=== PATIENT | female | born 1930 | race Caucasian/White ===

== ENCOUNTER 2016-08-21 17:25 | Emergency (ER) | payer OTHER ==
[~2016-08-21] VITALS: Ht 170.2 cm; Wt 90.0 kg
[~2016-08-21 17:25] MED LIST: ALLO100T PO; AMIT1TAB79 PO; APIX5TAB PO; ATOR10TA15 PO; CARD240C6 PO; FURO1TAB60 PO; IPRA17I INH; ISOS30TA3 PO; LEVO25TA4 PO; METO-338 PO; MIRA33504 PO; NOVO7030P2 SQ; OMEP20TA PO
[2016-08-21 17:29] VITALS: BP 136/64; PULSE 130; RESP 24; TEMP 98.1; O2SAT 96
== END 2016-08-21 19:24 | disposition left against medical advice (07) ==
LOC: NED 17:25
DX: R11.2 Nausea with vomiting, unspecified (principal)
CPT/HCPCS: 99281

== ENCOUNTER 2016-09-12 16:17 | Emergency (ER) | payer OTHER ==
[~2016-09-12] VITALS: Ht 170.2 cm; Wt 81.0 kg
[2016-09-12 16:23] VITALS: BP 135/60; PULSE 90; RESP 16; TEMP 98.1; O2SAT 98
--- NOTE | 2016-09-12 17:09 | PD ---
HPI Chief Complaint: Skin Problem Time Seen by Provider: 16:55 Travel History International Travel<30 days: No Contact w/Intl Traveler<30days: No Traveled to known affect area: No History of Present Illness HPI 86yo F with PMH of DM presents to the ED for evaluation of her left foot per her granddaughter's request. Pt has dry superficial ulcer as well as an area of early blister formation medial of left big toe. She has mild erythema on dorsum of her foot that she cannot tell me the duration of time it has been there. Denies any fever, trauma, numbness, weakness. Pain is mild and pt can ambulate. Denies any chest pain, sob, n/v, abdominal pain. PFSH Past Medical History Hx Anticoagulant Therapy: Yes (81 MG. ASA) Arthritis: Yes (L KNEE) Asthma: No Atrial Fibrillation: Yes Autoimmune Disease: No Blood Disorders: No Anxiety: No Depression: No Heart Rhythm Problems: Yes (AFIB) Cancer: No Cardiac Catheterization: Yes (X 4 STENTS) Cardiovascular Problems: Yes (HTN, CHOL) High Cholesterol: Yes Chemotherapy: No Chest Pain: Yes Congestive Heart Failure: Yes COPD: Yes Cerebrovascular Accident: No Coronary Artery Disease: Yes (NOT SURE) Diabetes: Yes Diminished Hearing: Yes ([place] EAR) Endocrine: Yes Gastrointestinal Disorders: Yes (IBS) GERD: No Glaucoma: No Genitourinary: No Headaches: Yes (WHEN BLOOD SUGAR GETS HIGH) Hepatitis: No Hiatal Hernia: Yes Hypertension: Yes Immune Disorder: No Inguinal Hernia: No Implanted Vascular Access Dvce: Yes Kidney Stones: No Musculoskeletal: Yes Neurologic: No Psychiatric: No Reproductive: No Respiratory: Yes Integumentary: Yes Immunizations Current: Yes Migraines: No Myocardial Infarction: No Pneumonia: Yes Radiation Therapy: No Renal Failure: No Seizures: No Sickle Cell Disease: No Sleep Apnea: No Thyroid Disease: No Ulcer: No PNEUMOCCOCAL Vaccine (Year): 1 Menopausal: Yes : 4 Para: 4 Past Surgical History Abdominal Surgery: Yes (SM BOWEL RESECTION) AICD: No Appendectomy: No Arteriovenous Shunt: No Body Medical Devices: STENTS x 4 cardiac Cardiac Surgery: Yes Cholecystectomy: Yes Coronary Artery Bypass Graft: No Coronary Stent: Yes (2005 & 2006) Ear Surgery: No Endocrine Surgery: No Eye Surgery: Yes (CATARACTS R EYE) Genitourinary Surgery: No Gynecologic Surgery: Yes Hysterectomy: Yes Insulin Pump: No Joint Replacement: No Neurologic Surgery: No Oral Surgery: Yes (DENTURES) Pacemaker: No Thoracic Surgery: No Other Surgery: Yes (GALLSTONES; R LEG AMPUTATED) Social History Alcohol Use: No Tobacco Use: No Substance Use: No Allergies-Medications (Allergen,Severity, Reaction): Coded Allergies: Digoxin (Verified Allergy, Severe, BLURRY VISION, 09/12/16) Oxycodone (Verified Allergy, Severe, Anaphylaxis, 09/12/16) Ativan (Verified Adverse Reaction, Severe, "makes me crazy", 09/12/16) Codeine (Verified Adverse Reaction, Severe, "makes me crazy", 09/12/16) Reported Meds & Prescriptions Reported Meds & Active Scripts Active Lopressor (Metoprolol Tartrate) 100 Mg Tab 100 Mg PO BID Lasix (Furosemide) 40 Mg Tab 40 Mg PO DAILY Cardizem CD 24 HR (Diltiazem CD 24 HR) 240 Mg Caper 240 Mg PO DAILY Novolin 70-30 Inj (Insulin Human Isoph/Insulin Regular) 1,000 Unit/10 Ml Vial 15 Units SQ BID@,17 30 Days Reported Allopurinol 100 Mg Tab 100 Mg PO DAILY Atorvastatin (Atorvastatin Calcium) 10 Mg Tab 10 Mg PO HS Atrovent HFA 12.9 GM Inh (Ipratropium [place]) 17 Mcg/Act Aer 1 Puff INH DIRECTED PRN Elavil (Amitriptyline HCl) 25 Mg Tab 75 Mg PO HS Isosorbide Mononitrate ER (Isosorbide Mononitrate) 30 Mg Alejandro 30 Mg PO DAILY Miralax Powder (Polyethylene Glycol 3350 Powder) 17 Gm Powd 17 Gm PO DAILY Mix and dissolve one measuring cap-ful (17 grams) in water or juice. Review of Systems Except as stated in HPI: all other systems reviewed are Neg Physical Exam Narrative GENERAL: 86yo F not in distress. SKIN: Warm and dry. HEAD: Atraumatic. Normocephalic. CARDIOVASCULAR: Regular rate and rhythm. No murmur appreciated. RESPIRATORY: No accessory muscle use. Clear to auscultation. Breath sounds equal bilaterally. GASTROINTESTINAL: Abdomen soft, non-tender, nondistended. Hepatic and splenic margins not palpable. MUSCULOSKELETAL: Left foot: Small dry superficial ulcer top of first big toe with +irritated skin, loose skin medial to left big toe from rubbing against the second toe. It is not open yet. Mild erythema on dorsum of distal MTPs 1- 5. DP 1+. +Edema. No ttp. Right leg: Prosthetic leg. NEUROLOGICAL: Awake and alert. No obvious cranial nerve deficits. Motor grossly within normal limits. Normal speech. PSYCHIATRIC: Appropriate mood and affect; insight and judgment normal.87 Data Data Last Documented VS Vital Signs Date Time Temp Pulse Resp B/P Pulse Ox O2 Delivery O2 Flow Rate FiO2 09/12/16 16:23 98.1 90 16 135/60 98 Orders Foot, Limited (2vws) (09/12/16 ) Complete Blood Count With Diff (09/12/16 17:04) Basic Metabolic Panel (Bmp) (09/12/16 17:04) Labs Laboratory Tests Test 09/12/16 17:20 White Blood Count 6.9 TH/MM3 Red Blood Count 3.92 MIL/MM3 Hemoglobin 9.3 GM/DL Hematocrit 30.5 % Mean Corpuscular Volume 77.7 FL Mean Corpuscular Hemoglobin 23.7 PG Mean Corpuscular Hemoglobin 30.5 % Concent Red Cell Distribution Width 17.3 % Platelet Count 262 TH/MM3 Mean Platelet Volume 8.1 FL Neutrophils (%) (Auto) 70.1 % Lymphocytes (%) (Auto) 19.0 % Monocytes (%) (Auto) 9.0 % Eosinophils (%) (Auto) 1.4 % Basophils (%) (Auto) 0.5 % Neutrophils # (Auto) 4.9 TH/MM3 Lymphocytes # (Auto) 1.3 TH/MM3 Monocytes # (Auto) 0.6 TH/MM3 Eosinophils # (Auto) 0.1 TH/MM3 Basophils # (Auto) 0.0 TH/MM3 CBC Comment DIFF FINAL Differential Comment Sodium Level 137 MEQ/L Potassium Level 4.3 MEQ/L Chloride Level 102 MEQ/L Carbon Dioxide Level 26.4 MEQ/L Anion Gap 9 MEQ/L Blood Urea Nitrogen 22 MG/DL Creatinine 1.10 MG/DL Estimat Glomerular Filtration 47 ML/MIN Rate Random Glucose 291 MG/DL Calcium Level 9.4 MG/DL MDM Medical Decision Making Medical Screen Exam Complete: Yes Emergency Medical Condition: Yes Interpretation(s) Laboratory Tests Test 09/12/16 17:20 White Blood Count 6.9 TH/MM3 (4.0-11.0) Red Blood Count 3.92 MIL/MM3 (4.00-5.30) Hemoglobin 9.3 GM/DL (11.6-15.3) Hematocrit 30.5 % (35.0-46.0) Mean Corpuscular Volume 77.7 FL (80.0-100.0) Mean Corpuscular Hemoglobin 23.7 PG (27.0-34.0) Mean Corpuscular Hemoglobin 30.5 % Concent (32.0-36.0) Red Cell Distribution Width 17.3 % (11.6-17.2) Platelet Count 262 TH/MM3 (150-450) Mean Platelet Volume 8.1 FL (7.0-11.0) Neutrophils (%) (Auto) 70.1 % (16.0-70.0) Lymphocytes (%) (Auto) 19.0 % (9.0-44.0) Monocytes (%) (Auto) 9.0 % (0.0-8.0) Eosinophils (%) (Auto) 1.4 % (0.0-4.0) Basophils (%) (Auto) 0.5 % (0.0-2.0) Neutrophils # (Auto) 4.9 TH/MM3 (1.8-7.7) Lymphocytes # (Auto) 1.3 TH/MM3 (1.0-4.8) Monocytes # (Auto) 0.6 TH/MM3 (0-0.9) Eosinophils # (Auto) 0.1 TH/MM3 (0-0.4) Basophils # (Auto) 0.0 TH/MM3 (0-0.2) CBC Comment DIFF FINAL Differential Comment Sodium Level 137 MEQ/L (136-145) Potassium Level 4.3 MEQ/L (3.5-5.1) Chloride Level 102 MEQ/L (98-107) Carbon Dioxide Level 26.4 MEQ/L (21.0-32.0) Anion Gap 9 MEQ/L (5-15) Blood Urea Nitrogen 22 MG/DL (7-18) Creatinine 1.10 MG/DL (0.50-1.00) Estimat Glomerular Filtration 47 ML/MIN (>89) Rate Random Glucose 291 MG/DL (74-106) Calcium Level 9.4 MG/DL (8.5-10.1) Last Impressions Foot X-Ray 09/12/16 0000 Signed Impressions: Service Date/Time: August 17:18 - CONCLUSION: 1. Degenerative changes and bunion deformity. No findings to indicate osteomyelitis evident by plain film. Manan Khanna MD Differential Diagnosis Cellulitis vs. Skin irritation vs. neuropathy Narrative Course 86yo F with chronic left foot ulcers and mild erythema on dorsum of foot. Pt is nontoxic appearing. VS stable. Xray left foot showed degenerative changes and bunion deformity. No findings to indicate osteomyelitis. Pt is not really complaining of any pain but is here because her grand daughter brought her. Labs reviewed, no leukocytosis. H/H low but at baseline. Denies any bleeding. glucose elevated at 291. No anion gap. BUN/creatinine mildly elevated, pt is tolerating PO and can hydrate orally. Diagnosis Primary Impression: Cellulitis of left foot Referrals: Landen Nunez DPM 1 week Patient Instructions: General Instructions Departure Forms: Tests/Procedures Additional Instructions: Please follow up with your PMD in 3-7 days. Return to the ED if your symptoms worsen. Med/Other Pt SpecificInfo: Prescription(s) given Scripts Clindamycin 300 Mg [id number] Mg PO Q6H 7 Days Ref 0 Prov:Alison Bedolla DO 09/12/16 Disposition: 01 DISCHARGE HOME Condition: Stable Alison Bedolla DO Sep 12, 2016 17:09
--- NOTE | 2016-09-12 17:36 | RADHPO ---
EXAM DATE/TIME: 09/12/2016 17:18 [facility] COMPARISON: CHEST SINGLE AP, June 30, 2016, 21:33. INDICATIONS : Patient states left great toe wound. MEDICAL HISTORY : Diabetes mellitus type II. SURGICAL HISTORY : None. ENCOUNTER: Initial ACUITY: 1 week PAIN SCORE: 2/10 LOCATION: Left Foot FINDINGS: The exam demonstrates degenerative changes and bunion deformity in the metatarsal phalangeal joint of the first digit. There is no bony destruction to suggest osteomyelitis. No acute fracture is seen. There are large spurs at the insertion of the plantar fascia and Achilles tendon. CONCLUSION: 1. Degenerative changes and bunion deformity. No findings to indicate osteomyelitis evident by plain film. Manan Khanna MD on September 12, 2016 at 17:33 Board Certified Radiologist. This report was verified electronically.
[2016-09-12 17:50] LABS: POTASSIUM 4.3 MEQ/L (3.5-5.1)
[2016-09-12 17:53] LABS: BICARBONATE 26.4 MEQ/L (21.0-32.0)
[2016-09-12 18:04] LABS: AUTOMATED NEUTROPHIL # 4.9 TH/MM3 (1.8-7.7); BASOPHIL % 0.5 % (0.0-2.0); EOSINOPHIL # 0.1 TH/MM3 (0-0.4); EOSINOPHIL % 1.4 % (0.0-4.0); HEMATOCRIT 30.5 % (35.0-46.0); LYMPHOCYTE # 1.3 TH/MM3 (1.0-4.8); MEAN CELL VOLUME 77.7 FL (80.0-100.0); MEAN CORPUSCULAR HEMOGLOBIN 23.7 PG (27.0-34.0); MEAN CORPUSCULAR HGB CONC 30.5 % (32.0-36.0); NEUT % 70.1 % (16.0-70.0); PLATELET COUNT 262 TH/MM3 (150-450); RED BLOOD COUNT 3.92 MIL/MM3 (4.00-5.30); RED CELL DISTRIBUTION WIDTH 17.3 % (11.6-17.2); WHITE BLOOD COUNT 6.9 TH/MM3 (4.0-11.0)
[2016-09-12 18:27] LABS: HEMO FLAGS DIFF FINAL
[2016-09-12] MEDS ORDERED: CLIN1CAP6 PO (18:41)
== END 2016-09-12 19:34 | disposition home or self-care (01) ==
LOC: PHED 16:17
DX: L03.116 Cellulitis of left lower limb (principal); I48.91 Unspecified atrial fibrillation; M13.862 Other specified arthritis, left knee; I10 Essential (primary) hypertension; E11.9 Type 2 diabetes mellitus without complications; J44.9 Chronic obstructive pulmonary disease, unspecified; E78.00 Pure hypercholesterolemia, unspecified; I50.9 Heart failure, unspecified; Z79.4 Long term (current) use of insulin; Z79.82 Long term (current) use of aspirin
CPT/HCPCS: 73620; 80048; 85025; 99283

== ENCOUNTER 2016-09-19 16:10 | Inpatient (IN) | payer OTHER, MEDICARE ==
[~2016-09-19] VITALS: Ht 170.2 cm; Wt 73.9 kg
[~2016-09-19 16:10] MED LIST changes: -APIX5TAB PO; +CLIN1CAP6 PO; -LEVO25TA4 PO; -OMEP20TA PO
[2016-09-19 16:30] VITALS: BP 152/72; PULSE 124; RESP 19; O2SAT 100
[2016-09-19 16:33] LABS: MEAN CORPUSCULAR HGB CONC 29.9 % (32.0-36.0)
[2016-09-19 16:40] VITALS: O2SAT 100
--- NOTE | 2016-09-19 16:41 | PD ---
HPI Chief Complaint: shortness of breath Time Seen by Provider: 16:32 Travel History International Travel<30 days: No Contact w/Intl Traveler<30days: No Traveled to known affect area: No History of Present Illness HPI 86-year-old female with history of COPD, CHF, diabetes, status post right BKA multiple medical issues presents to the ER today because of several days of shortness of breath and coughing. She denies any chest pains, fevers, or other symptoms. She was found to be wheezing and was given Solu-Medrol and nebulizer by EMS. She reports feeling improved in the ER. EMS found elevated blood sugar of 400. Modifying Factors: None Associated Signs & Symptoms: Shortness of breath, coughing, hyperglycemia Risk Factors: COPD PFSH Past Medical History Hx Anticoagulant Therapy: Yes (81 MG. ASA) Arthritis: Yes (L KNEE) Asthma: No Atrial Fibrillation: Yes Autoimmune Disease: No Blood Disorders: No Anxiety: No Depression: No Heart Rhythm Problems: Yes (AFIB) Cancer: No Cardiac Catheterization: Yes (X 4 STENTS) Cardiovascular Problems: Yes (HTN, CHOL) High Cholesterol: Yes Chemotherapy: No Chest Pain: Yes Congestive Heart Failure: Yes COPD: Yes Cerebrovascular Accident: No Coronary Artery Disease: Yes (NOT SURE) Diabetes: Yes Diminished Hearing: Yes ([place] EAR) Endocrine: Yes Gastrointestinal Disorders: Yes (IBS) GERD: No Glaucoma: No Genitourinary: No Headaches: Yes (WHEN BLOOD SUGAR GETS HIGH) Hepatitis: No Hiatal Hernia: Yes Heparin Induced Thrombocytopen: No Hypertension: Yes Immune Disorder: No Inguinal Hernia: No Implanted Vascular Access Dvce: Yes Kidney Stones: No Musculoskeletal: Yes Neurologic: No Psychiatric: No Reproductive: No Respiratory: Yes Integumentary: Yes Immunizations Current: Yes Migraines: No Myocardial Infarction: No Pneumonia: Yes Radiation Therapy: No Renal Failure: No Seizures: No Sickle Cell Disease: No Sleep Apnea: No Thyroid Disease: No Ulcer: No PNEUMOCCOCAL Vaccine (Year): 1 Menopausal: Yes : 4 Para: 4 Past Surgical History Abdominal Surgery: Yes (SM BOWEL RESECTION) AICD: No Appendectomy: No Arteriovenous Shunt: No Body Medical Devices: STENTS x 4 cardiac Cardiac Surgery: Yes Cholecystectomy: Yes Coronary Artery Bypass Graft: No Coronary Stent: Yes (2005 & 2006) Ear Surgery: No Endocrine Surgery: No Eye Surgery: Yes (CATARACTS R EYE) Genitourinary Surgery: No Gynecologic Surgery: Yes Hysterectomy: Yes Insulin Pump: No Joint Replacement: No Neurologic Surgery: No Oral Surgery: Yes (DENTURES) Pacemaker: No Thoracic Surgery: No Other Surgery: Yes (GALLSTONES; R LEG AMPUTATED) Social History Alcohol Use: No Tobacco Use: No Substance Use: No Allergies-Medications (Allergen,Severity, Reaction): Coded Allergies: Digoxin (Verified Allergy, Severe, BLURRY VISION, 09/19/16) Oxycodone (Verified Allergy, Severe, Anaphylaxis, 09/19/16) Ativan (Verified Adverse Reaction, Severe, "makes me crazy", 09/19/16) Codeine (Verified Adverse Reaction, Severe, "makes me crazy", 09/19/16) Reported Meds & Prescriptions Reported Meds & Active Scripts Active Lopressor (Metoprolol Tartrate) 100 Mg Tab 100 Mg PO BID Lasix (Furosemide) 40 Mg Tab 40 Mg PO DAILY Cardizem CD 24 HR (Diltiazem CD 24 HR) 240 Mg Caper 240 Mg PO DAILY Novolin 70-30 Inj (Insulin Human Isoph/Insulin Regular) 1,000 Unit/10 Ml Vial 15 Units SQ BID@,17 30 Days Reported Aspirin 81 Mg Tabdr 81 Mg PO DAILY Allopurinol 100 Mg Tab 100 Mg PO DAILY Atorvastatin (Atorvastatin Calcium) 10 Mg Tab 10 Mg PO HS Atrovent HFA 12.9 GM Inh (Ipratropium [place]) 17 Mcg/Act Aer 1 Puff INH DIRECTED PRN Elavil (Amitriptyline HCl) 25 Mg Tab 75 Mg PO HS Isosorbide Mononitrate ER (Isosorbide Mononitrate) 30 Mg Alejandro 30 Mg PO DAILY Miralax Powder (Polyethylene Glycol 3350 Powder) 17 Gm Powd 17 Gm PO DAILY Mix and dissolve one measuring cap-ful (17 grams) in water or juice. Review of Systems Except as stated in HPI: all other systems reviewed are Neg Physical Exam Narrative GENERAL: Well-nourished, well-developed elderly white female patient in no acute distress. Awake and oriented 3. SKIN: Warm and dry. HEAD: Normocephalic. EYES: No scleral icterus. No injection or drainage. NECK: Supple, trachea midline. CARDIOVASCULAR: Regular rate and rhythm without murmurs, gallops, or rubs. RESPIRATORY: Breath sounds equal and decreased throughout bilaterally. No accessory muscle use. GASTROINTESTINAL: Abdomen soft, non-tender, nondistended. MUSCULOSKELETAL: No cyanosis, or edema. BACK: Nontender without obvious deformity. No CVA tenderness. Data Data Last Documented VS Vital Signs Date Time Temp Pulse Resp B/P Pulse Ox O2 Delivery O2 Flow Rate FiO2 09/19/16 16:45 102 20 100 Room Air 09/19/16 16:40 21 09/19/16 16:30 152/72 Orders Complete Blood Count With Diff (09/19/16 16:32) Comprehensive Metabolic Panel (09/19/16 16:32) B-Type Natriuretic Peptide (09/19/16 16:32) Iv Access Insert/Monitor (09/19/16 16:32) Ecg Monitoring (09/19/16 16:32) Oximetry (09/19/16 16:32) Oxygen Administration (09/19/16 16:32) Chest, Single Ap (09/19/16 16:32) Sodium Chloride 0.9% Flush (Ns Flush) (09/19/16 16:45) Albuterol-Ipratropium Neb (Duoneb Neb) (09/19/16 16:45) Arterial Blood Gas (Abg) (09/19/16 17:41) Consult Vascular Access Team (09/19/16 ) Labs Laboratory Tests Test 09/19/16 18:37 White Blood Count 17.9 TH/MM3 Red Blood Count 4.16 MIL/MM3 Hemoglobin 9.7 GM/DL Hematocrit 32.6 % Mean Corpuscular Volume 78.4 FL Mean Corpuscular Hemoglobin 23.4 PG Mean Corpuscular Hemoglobin 29.9 % Concent Red Cell Distribution Width 17.0 % Platelet Count 286 TH/MM3 Mean Platelet Volume 8.5 FL Neutrophils (%) (Auto) 97.0 % Lymphocytes (%) (Auto) 1.2 % Monocytes (%) (Auto) 1.7 % Eosinophils (%) (Auto) 0.0 % Basophils (%) (Auto) 0.1 % Neutrophils # (Auto) 17.3 TH/MM3 Lymphocytes # (Auto) 0.2 TH/MM3 Monocytes # (Auto) 0.3 TH/MM3 Eosinophils # (Auto) 0.0 TH/MM3 Basophils # (Auto) 0.0 TH/MM3 CBC Comment AUTO DIFF MDM Medical Decision Making Medical Screen Exam Complete: Yes Emergency Medical Condition: Yes Medical Record Reviewed: Yes Interpretation(s) Last 24 hours Impressions Chest X-Ray 09/19/16 1632 Signed Impressions: Service Date/Time: September 17:14 - CONCLUSION: No acute cardiopulmonary disease identified. Hema Braxton MD Differential Diagnosis Shortness of breathCOPD exacerbation versus CHF versus pneumonia Narrative Course Patient was given Solu-Medrol and nebulizers by EMS and in the ER. On reevaluation at 6:30 PM, she is feeling improved. I suspect that she has an underlying COPD exacerbation. Lab work had been sent on the patient and is pending. Procedures Procedure Narrative Right external jugular vein IV was placed by me. Patient was placed in Trendelenburg position, right EJ was identified, and alcohol prep was used to clean the area. 20-gauge IV needle was used to access the vein and 20-gauge IV placed over needle. Patient tolerated procedure well. IV is stable into place. Physician Communication Physician Communication Patient signed out to Dr. Cantu awaiting lab work. Diagnosis Primary Impression: COPD exacerbation Additional Impression: Hyperglycemia Condition: Stable John Lange MD Sep 19, 2016 16:41
[2016-09-19] MEDS: RESP: ALBUTEROL 2.5 MG/IPRATROPIUM 0.5 MG NEB (SCH) INH (16:42)
[2016-09-19 16:45] VITALS: O2SAT 100
[2016-09-19] MEDS ORDERED: SODIUM CHLORIDE 0.9% FLUSH 5 ML FLUSH IVF PRN (16:45)
--- NOTE | 2016-09-19 18:01 | RADRPT ---
EXAM DATE/TIME: 09/19/2016 17:14 [facility] COMPARISON: CHEST SINGLE AP, June 30, 2016, 21:33. INDICATIONS : Short of Breath, Chest Discomfort. MEDICAL HISTORY : Chronic obstructive pulmonary disease. Diabetes mellitus type II. Hypertension. Hernia, hiatal. CHF. SURGICAL HISTORY : Cardiac stents. ENCOUNTER: Initial ACUITY: 4 - 6 months PAIN SCORE: 2/10 LOCATION: Bilateral chest FINDINGS: Single AP view of the chest. Chronic elevation right hemidiaphragm. The lungs are clear. Cardiomedias tinal silhouette within normal limits. No evidence of pleural effusion or pneumothorax. CONCLUSION: No acute cardiopulmonary disease identified. Hema Braxton MD on September 19, 2016 at 17:59 Board Certified Radiologist. This report was verified electronically.
[2016-09-19] MEDS ORDERED: ASPI1TAB69 PO (18:09)
[2016-09-19 18:55] LABS: AUTOMATED NEUTROPHIL # 17.3 TH/MM3 (1.8-7.7); BASOPHIL % 0.1 % (0.0-2.0); HEMATOCRIT 32.6 % (35.0-46.0); LYMPH % 1.2 % (9.0-44.0); LYMPHOCYTE # 0.2 TH/MM3 (1.0-4.8); MEAN CELL VOLUME 78.4 FL (80.0-100.0); MEAN CORPUSCULAR HEMOGLOBIN 23.4 PG (27.0-34.0); MONO % 1.7 % (0.0-8.0); PLATELET COUNT 286 TH/MM3 (150-450); RED BLOOD COUNT 4.16 MIL/MM3 (4.00-5.30); WHITE BLOOD COUNT 17.9 TH/MM3 (4.0-11.0)
[2016-09-19 18:56] LABS: HEMO FLAGS AUTO DIFF
[2016-09-19] MEDS ORDERED: ACETAMINOPHEN 500 MG CPLT PO ONE (19:00)
[2016-09-19 19:09] LABS: ALKALINE PHOSPHATASE 102 U/L (45-117); ALT (GPT) 15 U/L (10-53); ANION GAP 15 MEQ/L (5-15); AST (GOT) 21 U/L (15-37); BICARBONATE 23.3 MEQ/L (21.0-32.0); BLOOD UREA NITROGEN 38 MG/DL (7-18); CHLORIDE 94 MEQ/L (98-107); GLOMERULAR FILTRATION RATE 27 ML/MIN (>89); POTASSIUM 3.2 MEQ/L (3.5-5.1); SODIUM (NA) 132 MEQ/L (136-145); TOTAL BILIRUBIN ADULT 0.6 MG/DL (0.2-1.0)
[2016-09-19 19:37] LABS: OVALOCYTES 1+ (NORMAL); SCAN/DIFF AUTO DIFF CONFIRMED
[2016-09-19 21:30] VITALS: BP 127/91; PULSE 136; RESP 18; TEMP 98.7
[2016-09-19] MEDS ORDERED: INSULIN HUMAN REGULAR 1,000 UNITS/10 ML VIAL SQ ONE (21:30)
[2016-09-19] MEDS ORDERED: SODIUM CHLOR 0.9% 1000 ML INJ 1,000 ML IV ONE ×2 (21:30)
[2016-09-19] MEDS ORDERED: POTASSIUM CHLOR 20 MEQ PREMIX 100 ML IV ONE (21:45)
[2016-09-19] MEDS ORDERED: POTASSIUM CHLORIDE 25 MEQ EFFERVESCENT TAB PO ONE (21:45)
[2016-09-19 21:52] LABS: BLOOD GAS BASE EXCESS -4.5 mmol/L (-2-2); BLOOD GAS CARBOXYHEMOGLOBIN 2.1 % (0-4); BLOOD GAS HCO3 19 mmol/L (22-26); BLOOD GAS METHEMOGLOBIN 2.4 % (0-2); BLOOD GAS O2 HGB SATURATION 92 % (90-100); BLOOD GAS OXYGEN CONTENT 13.3 Vol % (12.0-20.0); BLOOD GAS PCO2 31 mmHg (38-42); BLOOD GAS PO2 90 mmHG (61-120); BLOOD GAS TOTAL HGB 10.2 G/DL (12.0-16.0); CRITICAL VALUE YES; DRAW SITE RT RADIAL; NUMBER OF ARTERIAL PUNCTURES 1; OXYGEN DEVICE RA; STAT YES; TEMP CORR TO 98.6; ULNAR PULSE Y
[2016-09-19] MEDS ORDERED: MORPHINE SULFATE 4 MG/ML INJ IV PUSH ONE (22:15)
[2016-09-19] MEDS ORDERED: ONDANSETRON HCL 4 MG/2 ML VIAL IV PUSH ONE (22:15)
--- NOTE | 2016-09-19 22:21 | PD ---
Physical Exam Date Seen by Provider: Sep 19, 2016 Time Seen by Provider: 22:17 Narrative Patient was signed over to me by the previous ER physician. This 86-year-old female was brought into the emergency room by EMS for hypoglycemia and some shortness of breath. Patient seems to be a little bit confused for look like to answer as appropriately as possible. Her blood sugar was 450. Blood test was ordered based on her hyperglycemia. Blood test results came back which shows leukocytosis, hypokalemia and hyperglycemia. I went and reexamined the patient to look for any skin lesions that can explain the leukocytosis. Patient has no open sores. 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 She has a dried ulcer of her left second toe dorsally. Does not look infected. I rechecked her back and there were no decubitus ulcer. Test x-ray was within normal limit. Awaiting for the urine analysis. I ordered 2 L of IV fluid bolus and she did appear dehydrated and was tachycardic. I also ordered 10 units of subcutaneous insulin. Initial laboratory did not suggest any acidemia. The ABG did not show any metabolic acidosis. Patient would require admission given her hyper glycemia and dehydration. Awaiting for the hospitalist to call back. I have not given her any antibiotic yet. Probably I will cover her for possible sepsis. Data Data Last Documented VS Vital Signs Date Time Temp Pulse Resp B/P Pulse Ox O2 Delivery O2 Flow Rate FiO2 09/19/16 21:30 98.7 136 18 127/91 09/19/16 16:45 100 Room Air 09/19/16 16:40 21 Orders Complete Blood Count With Diff (09/19/16 16:32) Comprehensive Metabolic Panel (09/19/16 16:32) B-Type Natriuretic Peptide (09/19/16 16:32) Iv Access Insert/Monitor (09/19/16 16:32) Ecg Monitoring (09/19/16 16:32) Oximetry (09/19/16 16:32) Oxygen Administration (09/19/16 16:32) Chest, Single Ap (09/19/16 16:32) Sodium Chloride 0.9% Flush (Ns Flush) (09/19/16 16:45) Albuterol-Ipratropium Neb (Duoneb Neb) (09/19/16 16:45) Consult Vascular Access Team (09/19/16 ) Acetaminophen (Tylenol) (09/19/16 19:00) Sodium Chlor 0.9% 1000 Ml Inj (Ns 1000 M (09/19/16 21:30) Sodium Chlor 0.9% 1000 Ml Inj (Ns 1000 M (09/19/16 21:30) Insulin Human Regular Inj (Novolin R Inj (09/19/16 21:30) Urinalysis - C+S If Indicated (09/19/16 21:21) ^ Straight Catheter (09/19/16 21:21) Potassium Chloride Eff (K-Lyte Cl Eff) (09/19/16 21:45) Arterial Blood Gas (Abg) (09/19/16 ) Potassium Chlor 20 Meq Premix (Kcl 20 Me (09/19/16 21:45) Urinary Catheter Insert/Apply (09/19/16 21:34) Beta Hydroxybutyrate (Acetone) (09/19/16 21:37) Morphine Inj (Morphine Inj) (09/19/16 22:15) Ondansetron Inj (Zofran Inj) (09/19/16 22:15) Creatine Kinase (Cpk) (09/19/16 22:04) Piperacil-Tazo 4.5 Gm Premix (Zosyn 4.5 (09/19/16 22:30) Vancomycin Inj (Vancomycin Inj) (09/19/16 22:30) Lactic Acid (09/19/16 22:22) Cefepime Inj (Maxipime Inj) (09/20/16 09:00) Bedside Glucose HALEY.AC&HS (09/19/16 22:28) ^ Blood Glucose Goal (Criteria (09/19/16 22:28) ^ Hypoglycemia 51 - 69 Mg/Dl (09/19/16 22:28) ^ Hypoglycemia 50 Mg/Dl Or < (09/19/16 22:28) ^ Notify Dr: Other (09/19/16 22:28) Dextrose 50% In [place] (Vial) Inj (D50w (Vi (09/19/16 22:30) Glucagon Inj (Glucagon Inj) (09/19/16 22:30) Insulin Aspart Supplemtl Scale (Novolog (09/20/16 07:00) Hemoglobin (Hgb) A1c (09/20/16 06:00) Vital Signs (Adult) Q4H (09/19/16 22:28) Activity Oob With Assistance (09/19/16 22:28) Box Person / Telemetry .CONTINUOUS (09/19/16 22:28) Intake + Output HALEY.QSHIFT (09/19/16 22:28) Diet 1800 Ada Cons Carb (09/20/16 Breakfast) Sodium Chlor 0.9% 1000 Ml Inj (Ns 1000 M (09/19/16 22:28) Sodium Chloride 0.9% Flush (Ns Flush) (09/19/16 22:30) Sodium Chloride 0.9% Flush (Ns Flush) (09/20/16 09:00) Ondansetron Inj (Zofran Inj) (09/19/16 22:30) Bisacodyl Supp (Dulcolax Supp) (09/19/16 22:30) Comprehensive Metabolic Panel (09/20/16 06:00) Complete Blood Count With Diff (09/20/16 06:00) Scd Bilateral/Knee High HALEY.BID (09/19/16 22:28) Cristian Bilateral/Knee High HALEY.QSHIFT (09/19/16 22:28) Acetaminophen (Tylenol) (09/19/16 22:30) Inpatient Certification (09/19/16 ) Diltiazem Cd (Cardizem Cd) (09/20/16 09:00) Urine Culture (09/19/16 21:54) Admit Order (Ed Use Only) (09/19/16 22:34) Labs Laboratory Tests Test 09/19/16 09/19/16 09/19/16 18:37 21:45 21:54 White Blood Count 17.9 TH/MM3 Red Blood Count 4.16 MIL/MM3 Hemoglobin 9.7 GM/DL Hematocrit 32.6 % Mean Corpuscular Volume 78.4 FL Mean Corpuscular Hemoglobin 23.4 PG Mean Corpuscular Hemoglobin 29.9 % Concent Red Cell Distribution Width 17.0 % Platelet Count 286 TH/MM3 Mean Platelet Volume 8.5 FL Neutrophils (%) (Auto) 97.0 % Lymphocytes (%) (Auto) 1.2 % Monocytes (%) (Auto) 1.7 % Eosinophils (%) (Auto) 0.0 % Basophils (%) (Auto) 0.1 % Neutrophils # (Auto) 17.3 TH/MM3 Lymphocytes # (Auto) 0.2 TH/MM3 Monocytes # (Auto) 0.3 TH/MM3 Eosinophils # (Auto) 0.0 TH/MM3 Basophils # (Auto) 0.0 TH/MM3 CBC Comment AUTO DIFF Differential Comment AUTO DIFF CONFIRMED Ovalocytes 1+ Sodium Level 132 MEQ/L Potassium Level 3.2 MEQ/L Chloride Level 94 MEQ/L Carbon Dioxide Level 23.3 MEQ/L Anion Gap 15 MEQ/L Blood Urea Nitrogen 38 MG/DL Creatinine 1.80 MG/DL Estimat Glomerular Filtration 27 ML/MIN Rate Random Glucose 438 MG/DL Calcium Level 8.5 MG/DL Total Bilirubin 0.6 MG/DL Aspartate Amino Transf 21 U/L (AST/SGOT) Alanine Aminotransferase 15 U/L (ALT/SGPT) Alkaline Phosphatase 102 U/L Total Creatine Kinase 44 U/L B-Type Natriuretic Peptide 129 PG/ML Total Protein 7.1 GM/DL Albumin 3.1 GM/DL B-Hydroxybutyrate 2.15 MMOL/L Blood Gas Puncture Site RT RADIAL Blood Gas Patient Temperature 98.6 Blood Gas HCO3 19 mmol/L Blood Gas Base Excess -4.5 mmol/L Blood Gas Oxygen Saturation 92 % Arterial Blood pH 7.41 Arterial Blood Partial 31 mmHg Pressure CO2 Arterial Blood Partial 90 mmHG Pressure O2 Arterial Blood Oxygen Content 13.3 Vol % Arterial Blood 2.1 % Carboxyhemoglobin Arterial Blood Methemoglobin 2.4 % Blood Gas Hemoglobin 10.2 G/DL Oxygen Delivery Device RA Urine Color YELLOW Urine Turbidity HAZY Urine pH 5.0 Urine Specific [place] 1.014 Urine Protein NEG mg/dL Urine Glucose (UA) 1000 mg/dL Urine Ketones TRACE mg/dL Urine Occult Blood NEG Urine Nitrite NEG Urine Bilirubin NEG Urine Urobilinogen LESS THAN 2.0 MG/DL Urine Leukocyte Esterase SMALL Urine WBC 4 /hpf Urine Squamous Epithelial <1 /hpf Cells Urine Bacteria MANY /hpf Urine Hyaline Casts 1 /lpf Urine Mucus FEW /lpf Microscopic Urinalysis Comment CATH-CULTURE IND MDM Supervised Visit with DYLAN: No Critical Care Narrative Aggregate critical care time was 30 minutes. Time to perform other separately billable procedures was not included in the critical care time. My time did not include minutes spent treating any other patients simultaneously or on activities that did not directly contribute to the patient's treatment. The services I provided to this patient were to treat and/or prevent clinically significant deterioration that could result in: Sepsis, dehydration, tachycardia, hyperglycemia, hypokalemia I provided critical care services requiring my management, as noted below: Chart data review, documentation time, medication orders and management, vital sign assessments/reviewing monitor data, ordering and reviewing lab tests, ordering and interpreting/reviewing x-rays and diagnostic studies, care of the patient and discussion of the patient with the admitting physicians. Diagnosis Primary Impression: COPD exacerbation Additional Impressions: Hyperglycemia Dehydration Tachycardia Sepsis Qualified Code: A41.9 - Sepsis, due to unspecified organism Hypokalemia Admitting Information Admitting Physician Requests: Admit Condition: Stable Simon Cantu MD Sep 19, 2016 22:21
[2016-09-19] MEDS ORDERED: VANCOMYCIN INJ 1,000 MG in SODIUM CHLOR 0.9% 250 ML INJ 250 ML IV ONE (22:30)
[2016-09-19] MEDS ORDERED: PIPERACIL-TAZO 4.5 GM PREMIX 100 ML IV ONE (22:30)
[2016-09-19] MEDS ORDERED: SODIUM CHLORIDE 0.9% FLUSH 5 ML FLUSH FLUSH PRN (22:30)
[2016-09-19] MEDS ORDERED: Vancomycin Consult Pharmacy 1 EA OTHER SCH (22:30)
[2016-09-19] MEDS ORDERED: GLUCAGON 1 MG/ML VIAL OTHER PRN (22:30)
[2016-09-19] MEDS ORDERED: DEXTROSE 50% IN WATER 50 ML VIAL(D50) IV PUSH PRN (22:30)
[2016-09-19] MEDS ORDERED: BISACODYL 10 MG SUPP PR PRN (22:30)
[2016-09-19] MEDS ORDERED: ONDANSETRON HCL 4 MG/2 ML VIAL IVP PRN (22:30)
[2016-09-19 22:32] LABS: BACTERIA, URINE MANY /hpf; BLOOD, URINE NEG (NEG); GLUCOSE,URINE 1000 mg/dL (NEG); HYALINE CAST, URINE 1 /lpf (RARE); KETONE, URINE TRACE mg/dL (NEG); MUCUS URINE FEW /lpf (OCC); NITRITE,URINE NEG (NEG); SQUAMOUS EPITHELIAL CELL URINE <1 /hpf (0-5); URINE COLOR YELLOW (YELLW/STRAW)
[2016-09-19 22:32] LABS: MEAN CORPUSCULAR HGB CONC 29.4 % (32.0-36.0)
--- NOTE | 2016-09-19 22:32 | HHI.HP ---
[facility] Lon Kothari MD Admission Diagnosis Diagnoses: (1) Sepsis Diagnosis: Principal (2) UTI (urinary tract infection) Diagnosis: Principal (3) A-fib Diagnosis: Principal (4) Renal insufficiency Diagnosis: Principal (5) Hypokalemia Diagnosis: Principal (6) CHF (congestive heart failure) Diagnosis: Principal (7) HTN (hypertension) Diagnosis: Principal (8) DM (diabetes mellitus) Travel History International Travel<30 Days: No Contact w/Intl Traveler <30 Da: No Traveled to Known Affected Are: No History of Present Illness This is an 86-year-old female with a PMH of HTN, COPD, DM, A. fib, h/o Right BKA and CHF (Echo 04/06/16 w/ EF 55-60%) who was brought to the ER by EMS secondary to complaints of cough and SOB x2-3 days. Denies fever, chills, nausea, vomiting or chest pain. Pt noted to have wheezing by EMS, s/p Solu- Medrol and DuoNeb en route to ER. Upon arrival, BP 152/72, HR 124, O2 sat 100% on RA, Temp 98.7. WBC 17.9. K+ 3.2. Creatinine 1.80, previously 1.10 on . BS 438, CO2 normal. Lactic Acid 4.2. CXR w/ no acute findings. S/p Vanc/ Zosyn and IVF in ER. Review of Systems Other ROS: 14 point review of systems otherwise negative. Past Family Social History Past Medical History PMH: HTN, COPD, DM, A. fib, h/o Right BKA and CHF (Echo 04/06/16 w/ EF 55-60%) Past Surgical History PAST SURGICAL HISTORY: Right BKA, Bowel Resection, Cardiac Stents Cholecystectomy, Cataract Surgery Allergies: Coded Allergies: Digoxin (Verified Allergy, Severe, BLURRY VISION, 09/19/16) Oxycodone (Verified Allergy, Severe, Anaphylaxis, 09/19/16) Ativan (Verified Adverse Reaction, Severe, "makes me crazy", 09/19/16) Codeine (Verified Adverse Reaction, Severe, "makes me crazy", 09/19/16) Family History PAST FAMILY HISTORY: Reviewed. No h/o DM or CAD Social History PAST SOCIAL HISTORY: Negative for alcohol, tobacco or drugs. Physical Exam Vital Signs Vital Signs Date Time Temp Pulse Resp B/P Pulse Ox O2 Delivery O2 Flow Rate FiO2 09/19/16 21:30 98.7 136 18 127/91 09/19/16 16:45 102 20 100 Room Air 09/19/16 16:45 100 Room Air 09/19/16 16:45 100 Room Air 09/19/16 16:40 100 21 09/19/16 16:30 124 19 152/72 100 Physical Exam PE: GENERAL: Elderly white female in no acute distress. HEENT: PERRLA, EOMI. No scleral icterus or conjunctival pallor. No lid lag or facial droop. CARDIOVASCULAR: Irregularly irregular, in A-fib, HR 120-150's. No obvious murmurs to auscultation. No chest tenderness to palpation. RESPIRATORY: No obvious rhonchi or wheezing. Clear to auscultation. Breath sounds equal bilaterally. GASTROINTESTINAL: Abdomen soft, non-tender, nondistended. BS normal. MUSCULOSKELETAL: Extremities without clubbing, cyanosis, or edema. No obvious deformities. Right stump w/ no signs of infection. Left foot w/ chronic ischemia , dried ulcer 2nd toe, no active infection NEUROLOGICAL: Awake, alert and oriented x4. No focal neurologic deficits. Moving both upper and lower extremities spontaneously. Laboratory Laboratory Tests Test 09/19/16 09/19/16 18:37 21:45 White Blood Count 17.9 Red Blood Count 4.16 Hemoglobin 9.7 Hematocrit 32.6 Mean Corpuscular Volume 78.4 Mean Corpuscular Hemoglobin 23.4 Mean Corpuscular Hemoglobin 29.9 Concent Red Cell Distribution Width 17.0 Platelet Count 286 Mean Platelet Volume 8.5 Neutrophils (%) (Auto) 97.0 Lymphocytes (%) (Auto) 1.2 Monocytes (%) (Auto) 1.7 Eosinophils (%) (Auto) 0.0 Basophils (%) (Auto) 0.1 Neutrophils # (Auto) 17.3 Lymphocytes # (Auto) 0.2 Monocytes # (Auto) 0.3 Eosinophils # (Auto) 0.0 Basophils # (Auto) 0.0 CBC Comment AUTO DIFF Differential Comment AUTO DIFF CONFIRMED Ovalocytes 1+ Sodium Level 132 Potassium Level 3.2 Chloride Level 94 Carbon Dioxide Level 23.3 Anion Gap 15 Blood Urea Nitrogen 38 Creatinine 1.80 Estimat Glomerular Filtration 27 Rate Random Glucose 438 Calcium Level 8.5 Total Bilirubin 0.6 Aspartate Amino Transf 21 (AST/SGOT) Alanine Aminotransferase 15 (ALT/SGPT) Alkaline Phosphatase 102 B-Type Natriuretic Peptide 129 Total Protein 7.1 Albumin 3.1 Blood Gas Puncture Site RT RADIAL Blood Gas Patient Temperature 98.6 Blood Gas HCO3 19 Blood Gas Base Excess -4.5 Blood Gas Oxygen Saturation 92 Arterial Blood pH 7.41 Arterial Blood Partial 31 Pressure CO2 Arterial Blood Partial 90 Pressure O2 Arterial Blood Oxygen Content 13.3 Arterial Blood 2.1 Carboxyhemoglobin Arterial Blood Methemoglobin 2.4 Blood Gas Hemoglobin 10.2 Oxygen Delivery Device RA Result Diagram: 09/19/16183609/19/161836 Assessment and Plan Problem List: (1) Sepsis ICD Code: A41.9 Status: Acute (2) UTI (urinary tract infection) ICD Code: N39.0 Status: Acute (3) A-fib ICD Code: I48.91 Status: Acute (4) COPD (chronic obstructive pulmonary disease) ICD Code: J44.9 Status: Chronic (5) Renal insufficiency ICD Code: N28.9 Status: Acute (6) Hypokalemia ICD Code: E87.6 Status: Acute (7) CHF (congestive heart failure) ICD Code: I50.9 Status: Chronic (8) DM (diabetes mellitus) ICD Code: E11.9 Status: Chronic Assessment and Plan A/P: 1. Sepsis: HR 120s, WBC 17.9, Lactic Acid 4.2, Source-UTI. S/p Vanc/Zosyn in ER. Obtain Blood Cultures, continue w/ IV Abx, IVF, repeat Lactic Acid. Follow up Urine/Blood Cultures. 2. UTI: U/a w/ evidence of UTI. Continue w/ IV Abx as above, follow up cultures. 3. Renal Insufficiency: Acute on Chronic. Creatinien 1.80, previously 1.10 on 09/12/16. IVF, repeat labs in am. 4. A-fib: w/ RVR. HR 120-150's while in ER. Start Cardizem gtt, resume home medications, wean gtt as tolerated. 5. Hypokalemia: K+ 3.2, s/p replacement in ER. Will recheck and replace as needed. 6. DM: Uncontrolled. BS 438, no evidence of DKA. Continue w/ IVF, Sliding Scale w/ Accu-Cheks. 7. CHF: Echo 04/06/16 w/ EF 55-60%, CXR w/ no acute findings, images reviewed by me. No evidence of acute CHF, however caution w/ IVF. 8. DVT Prophylaxis: SCD/Teds. 9. Social work for d/c planning as needed. 10. Case discussed w/ ER physician at length. Physician Certification 2 Midnight Certification Type: Admission for Inpatient Services Order for Inpatient Services The services are ordered in accordance with Medicare regulations or non- Medicare payer requirements, as applicable. In the case of services not specified as inpatient-only, they are appropriately provided as inpatient services in accordance with the 2-midnight benchmark. Estimated LOS (days): 2 days is the estimated time the patient will need to remain in the hospital, assuming treatment plan goals are met and no additional complications. Post-Hospital Plan: Not yet determined Problem Qualifiers (1) Sepsis: Qualified Code: A41.9 - Sepsis, due to unspecified organism Colette Diego MD Sep 19, 2016 22:32
[2016-09-19 22:34] LABS: COMMENT (UR) CATH-CULTURE IND; CULTURE IF INDICATED CATH CULTURE IND
[2016-09-19 22:54] VITALS: BP 139/74; PULSE 110; RESP 18; O2SAT 95
[2016-09-19] MEDS ORDERED: VANCOMYCIN 500 MG/NS 100 ML IV ONE ×2 (23:00)
[2016-09-19] MEDS ORDERED: PANTOPRAZOLE SODIUM 40 MG VIAL IV PUSH ONE (23:15)
[2016-09-19] MEDS: SODIUM CHLOR 0.9% 1000 ML INJ 1,000 ML IV SCH (23:21)
[2016-09-20] VITALS (19 sets, daily range): BP systolic 107–167; BP diastolic 52–99; PULSE 73–148; RESP 17–20; TEMP 97.5–98; O2SAT 93–100
[2016-09-20] MEDS ORDERED: DILTIAZEM INJ 125 MG in SODIUM CHLORIDE 0.9% INJ 100 ML IV SCH ×2
[2016-09-20] MEDS ORDERED: DILTIAZEM HCL 25 MG/5 ML VIAL IVP ONE
[2016-09-20] MEDS ORDERED: METOPROLOL TARTRATE 5 MG/5 ML VIAL IV PUSH ONE (03:00)
[2016-09-20 05:55] LABS: AUTOMATED NEUTROPHIL # 13.7 TH/MM3 (1.8-7.7); BASOPHIL % 0.1 % (0.0-2.0); HEMATOCRIT 30.2 % (35.0-46.0); LYMPHOCYTE # 0.3 TH/MM3 (1.0-4.8); MEAN CELL VOLUME 78.7 FL (80.0-100.0); MEAN CORPUSCULAR HEMOGLOBIN 23.2 PG (27.0-34.0); MONO % 6.9 % (0.0-8.0); PLATELET COUNT 260 TH/MM3 (150-450); RED BLOOD COUNT 3.84 MIL/MM3 (4.00-5.30); RED CELL DISTRIBUTION WIDTH 17.8 % (11.6-17.2)
[2016-09-20 06:07] LABS: ALKALINE PHOSPHATASE 84 U/L (45-117); ALT (GPT) 16 U/L (10-53); ANION GAP 13 MEQ/L (5-15); AST (GOT) 19 U/L (15-37); BICARBONATE 22.1 MEQ/L (21.0-32.0); BLOOD UREA NITROGEN 29 MG/DL (7-18); CHLORIDE 100 MEQ/L (98-107); GLOMERULAR FILTRATION RATE 35 ML/MIN (>89); SODIUM (NA) 135 MEQ/L (136-145); TOTAL BILIRUBIN ADULT 0.4 MG/DL (0.2-1.0)
[2016-09-20 06:14] LABS: HEMO FLAGS AUTO DIFF
[2016-09-20] MEDS: INSULIN ASPART SUPPLEMENTAL SCALE SQ SCH ×4 (06:23→20:42)
[2016-09-20 07:10] LABS: SCAN/DIFF AUTO DIFF CONFIRMED
[2016-09-20] MEDS: DILTIAZEM-CD 240 MG CAP ER PO SCH (08:39)
[2016-09-20] MEDS: CEFEPIME INJ 1,000 MG in SODIUM CHLORIDE 0.9% INJ 100 ML IV SCH ×2 (08:39→20:38)
[2016-09-20] MEDS: SODIUM CHLOR 0.9% 1000 ML INJ 1,000 ML IV SCH (08:40)
[2016-09-20] MEDS: SODIUM CHLORIDE 0.9% FLUSH 5 ML FLUSH FLUSH SCH ×2 (08:43→20:39)
[2016-09-20] MEDS: METOPROLOL TARTRATE 100 MG TAB PO SCH ×2 (08:43→20:42)
--- NOTE | 2016-09-20 08:59 | MB ---
cc: ZAIDA ROBISON M.D. DATE OF CONSULTATION: 09/20/2016 REASON FOR CONSULTATION Atrial fibrillation with a rapid ventricular response. HISTORY OF PRESENT ILLNESS The patient is an 86-year-old white female with a history of multiple medical problems including paroxysmal atrial fibrillation, chronic renal insufficiency, COPD, coronary artery disease and diabetes, who presented to the hospital with a several-day history of increasing dyspnea and nonproductive cough. The patient also notes somewhat increased wheezing over the last couple days. Since coming into the hospital her dyspnea has mildly improved. She denies palpitations, syncope, near-syncope, chest pain, pedal edema, paroxysmal nocturnal dyspnea. The patient often feels lightheaded throughout the day. She reports compliance with her medications. PAST MEDICAL HISTORY 1. Paroxysmal atrial fibrillation diagnosed 2010. She has had a number of admissions in the last few months for atrial fibrillation with a rapid ventricular response. 2. Hypothyroidism. 3. Hypertension. 4. Hyperlipidemia. 5. Remote history of GI bleeding while on Coumadin. 6. Diabetes. 7. Coronary artery disease status post stent of the ostium of the right coronary artery with a 3.0 mm Cypher, and stent of the proximal right coronary with a 2.5 mm Cypher [address] Ángel Malhotra. She underwent repeat stenting of the proximal right coronary [address] Ned Rosales with a 2.5 mm Cypher. Her last nuclear stress test was 06/19/2016 showing minimal apical reversible defect. 8. COPD. 9. Chronic renal insufficiency. 10.Possible congestive heart failure August 2013. PAST SURGICAL HISTORY 1. Left carotid endarterectomy. 2. Hysterectomy. 3. 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 MEDICATIONS Her cardiac medications at home: 1. Metoprolol 100 mg b.i.d. 2. Furosemide 40 mg q. daily. 3. Cardizem CD 240 mg q. Daily. 4. Aspirin 81 mg q. daily. 5. Atorvastatin 10 mg q.h.s. 6. Imdur 30 mg q. daily. ALLERGIES 1. DIGOXIN. 2. OXYCODONE. 3. ATIVAN. 4. CODEINE. FAMILY HISTORY Noncontributory. SOCIAL HISTORY The patient is a former smoker. There is no history of alcohol abuse. REVIEW OF SYSTEMS As in the history of present illness otherwise negative or noncontributory. She also currently denies headache, visual changes, unilateral weakness or numbness, abdominal pain, melena, diarrhea, vomiting. PHYSICAL EXAMINATION VITAL SIGNS: On physical examination her blood pressure is 138/58 with a pulse of 104, respirations 18. GENERAL: In general she is a well-developed, well-nourished white female in no acute distress HEENT/NECK: Jugular venous pressure is normal. Carotid pulses are 2+ bilaterally and without bruits. CHEST: Examination of the chest reveals diminished breath sounds diffusely. There are no definite rales or wheezes. CARDIAC: On cardiac examination she has an irregularly irregular rhythm without S3 or murmur. ABDOMEN: On abdominal examination she has a soft, obese, nontender abdomen. Bowel sounds are present. There is no definite hepatosplenomegaly. EXTREMITIES: Examination of the extremities reveals the patient to be status post right [id number] amputation. There is trace left pretibial edema. LABORATORY Laboratory data includes potassium 4.0, BUN 29, creatinine 1.43, glucose 425, brain natriuretic peptide level 129, WBC 15.0, hemoglobin 8.9, platelets 260. EKG EKG shows atrial fibrillation with a rapid ventricular response, diffuse low QRS voltage, diffuse nonspecific T-wave abnormalities. IMAGING Chest x-ray shows no acute disease. IMPRESSION Elevated heart rates in this 86-year-old white female with a history of paroxysmal atrial fibrillation which has been mostly persistent recently, coronary artery disease, diabetes, hypertension, COPD, chronic renal insufficiency. At rest her heart rates are in the 80s. With minimal activity heart rates increase into the 120s at the present time. The elevation in her heart rates may be due to infection or bacteremia. The elevated heart rates also may be due to increased dyspnea, possibly from COPD. There is no definite evidence for congestive heart failure by exam or chest x-ray. There is no evidence for acute coronary syndrome. She did have an overall unremarkable nuclear stress test about 3 months ago. I have reviewed numerous hospital notes the past 2-3 months. Apparently she has been felt to be a poor candidate for anticoagulation therapy and has been maintained on daily aspirin. RECOMMENDATIONS 1. Resume her metoprolol to avoid abrupt cessation of beta daniella therapy. 2. Stop the Cardizem drip. 3. Continue oral Cardizem. 4. Continue daily aspirin. 5. Treat the probable causes of the elevated heart rates including infection, COPD. 6. Will see the patient as needed over the weekend; please call my coverage if additional questions or problems arise. MD PUJA Curry/KELLI /8:22 AM /8:41 AM VIGNESH
[2016-09-20] MEDS: ACETAMINOPHEN 325 MG TAB PO PRN ×3 (13:04→22:22)
[2016-09-20 13:21] LABS: HEMOGLOBIN A1a 1.3 %; HEMOGLOBIN A1b 1.4 %; HEMOGLOBIN Ao 71.5 %; HEMOGLOBIN F 2.3 %; HEMOGLOBIN LA1C 4.2 %; HEMOGLOBIN P3 6.7 %
--- NOTE | 2016-09-20 13:38 | HHI.PR ---
Subjective Remarks no complains of chest pains or shortenss of breath denies any cough telemetry a fib- rate increase with activity- Objective Vitals Vital Signs Date Time Temp Pulse Resp B/P Pulse Ox O2 Delivery O2 Flow Rate FiO2 09/20/16 13:02 97.8 98 18 128/66 98 Nasal Cannula 09/20/16 12:20 98.0 92 18 124/57 98 Nasal Cannula 3 21 09/20/16 10:00 97.8 101 18 107/63 98 Nasal Cannula 3 21 09/20/16 07:20 97.8 104 18 138/58 98 Nasal Cannula 3 09/20/16 07:20 104 18 98 Nasal Cannula 3 09/20/16 07:20 18 98 Nasal Cannula 3 09/20/16 07:20 98 Nasal Cannula 3 09/20/16 05:36 15 09/20/16 04:49 106 18 167/73 96 Nasal Cannula 3 09/20/16 04:00 98 18 131/99 100 Nasal Cannula 2 09/20/16 03:00 87 18 149/66 100 Nasal Cannula 2 09/20/16 02:30 126 18 135/63 100 Nasal Cannula 2 09/20/16 01:40 73 18 141/59 100 Nasal Cannula 2 09/20/16 01:32 110 18 127/60 100 Nasal Cannula 2 09/20/16 01:20 113 18 136/61 96 Nasal Cannula 2 09/20/16 01:10 131 18 147/55 95 Nasal Cannula 2 09/20/16 01:00 138 18 115/68 98 Nasal Cannula 2 09/20/16 00:50 122 18 111/53 96 Nasal Cannula 2 09/20/16 00:45 148 18 133/59 94 Room Air 09/19/16 22:54 110 18 139/74 95 Room Air 09/19/16 21:30 98.7 136 18 127/91 09/19/16 16:45 102 20 100 Room Air 09/19/16 16:45 100 Room Air 09/19/16 16:45 100 Room Air 09/19/16 16:40 100 21 09/19/16 16:30 124 19 152/72 100 I/O 09/19/16 09/19/16 09/19/16 09/20/16 09/20/16 09/20/16 07:00 15:00 23:00 07:00 15:00 23:00 Intake Total 380 ml Output Total 900 ml Balance -520 ml Intake Oral 380 ml Output Urine Total 900 ml # Voids 1 # Bowel Movements 0 Result Diagram: 09/20/16 0506 09/20/16 0506 Other Results Last Impressions Chest X-Ray 09/19/16 1632 Signed Impressions: Service Date/Time: September 17:14 - CONCLUSION: No acute cardiopulmonary disease identified. Hema Braxton MD Imaging Last Impressions Chest X-Ray 09/19/16 1632 Signed Impressions: Service Date/Time: September 17:14 - CONCLUSION: No acute cardiopulmonary disease identified. Hema Braxton MD Objective Remarks awake and alert, laying flat no rales no wheezes irregularly irregular rhythm abdomen soft, right BKA left trace edema neuro exam unremarkable Urinary Catheter: Yes Assessment to: Remove Date of Removal: Sep 20, 2016 A/P Problem List: (1) Sepsis ICD Code: A41.9 Status: Acute (2) UTI (urinary tract infection) ICD Code: N39.0 Status: Acute (3) A-fib ICD Code: I48.91 Status: Acute (4) COPD (chronic obstructive pulmonary disease) ICD Code: J44.9 Status: Chronic (5) Renal insufficiency ICD Code: N28.9 Status: Acute (6) Hypokalemia ICD Code: E87.6 Status: Acute (7) CHF (congestive heart failure) ICD Code: I50.9 Status: Chronic (8) DM (diabetes mellitus) ICD Code: E11.9 Status: Chronic Assessment and Plan 1. Sepsis: HR 120s, WBC 17.9, Lactic Acid 4.2, Source-UTI. S/p Vanc/Zosyn in ER. Obtain Blood Cultures, continue w/ IV Abx, IVF, repeat Lactic Acid- normal. Follow up Urine/Blood Cultures. 2. UTI: U/a w/ evidence of UTI. Continue w/ IV Abx as above, follow up cultures. 3. Renal Insufficiency: Acute on Chronic. Creatinien 1.80, previously 1.10 on 09/12/16. IVF, repeat labs in am. 4. A-fib: w/ RVR. HR 120-150's while in ER. continue on lopressor and cardizem. ASA 5. Hypokalemia: resolved 6. DM: Uncontrolled. BS 438, no evidence of DKA. restart her regimen patient when asked very non compliant with diet 7. CHF: Echo 04/06/16 w/ EF 55-60%, CXR w/ no acute findings, images reviewed by me. No evidence of acute CHF, however caution w/ IVF. 8. DVT Prophylaxis: SCD/Teds. 9. Social work for d/c planning as needed. 10. Case discussed w/ ER physician at length. CM consult- home health care nursing Problem Qualifiers (1) Sepsis: Qualified Code: A41.9 - Sepsis, due to unspecified organism Latha Freire MD Sep 20, 2016 13:38
--- NOTE | 2016-09-20 13:47 | EKG ---
Date Performed: 09/19/2016 Time Performed: 23:40:55 PTAGE: 86 years EKG: ATRIAL FIBRILLATION WITH RAPID VENTRICULAR RESPONSE LOW QRS VOLTAGE IN PRECORDIAL LEADS POS SIBLE OLD INFERIOR WALL INFARCT Compared to prior tracing no significant change ABNORMAL ECG PREVIOUS TRACING : 06/30/2016 21.11 DOCTOR: Dee Coburn Interpretating Date/Time 09/24/2016 07:43:23
--- NOTE | 2016-09-20 13:48 | EKG ---
Date Performed: 09/20/2016 Time Performed: 08:24:55 PTAGE: 86 years EKG: ATRIAL FIBRILLATION WITH RAPID VENTRICULAR RESPONSE INFERIOR MYOCARDIAL INFARCTION MODERATE T-WAVE ABNORMALITY, CONSIDER LATERAL ISCHEMIA Compared to the previous tracing there has been some v ariation in the nonspecific ST-T wave changes but no other significant serial change ABNORMAL ECG PREVIOUS TRACING : 09/19/2016 23.40 DOCTOR: Dee Coburn Interpretating Date/Time 09/20/2016 13:42:24
[2016-09-20] MEDS ORDERED: DEXTROSE 10% INJ 1,000 ML IV SCH (14:02)
[2016-09-20] MEDS ORDERED: DEXT 5%-NACL 0.9% 1000 ML INJ 1,000 ML IV SCH (14:02)
[2016-09-20] MEDS ORDERED: DEXTROSE 5% IN WATE 1000ML INJ 1,000 ML IV SCH (14:02)
[2016-09-20] MEDS ORDERED: GLUCAGON 1 MG/ML VIAL IM ONE (14:15)
[2016-09-20] MEDS ORDERED: DEXTROSE 50% IN WATER 50 ML VIAL(D50) IV PUSH PRN (14:15)
[2016-09-20] MEDS ORDERED: GLUCAGON 1 MG/ML VIAL OTHER PRN (14:15)
[2016-09-20] MEDS: INSULIN HUMAN NPH/R 70/30 1,000 UNITS/10 ML VIAL SQ SCH (17:07)
[2016-09-21] VITALS (8 sets, daily range): BP systolic 99–127; BP diastolic 52–63; PULSE 71–120; RESP 18; TEMP 97.3–98.8; O2SAT 94–100
[2016-09-21] MEDS: ISOSORBIDE MONONITRATE 30 MG TAB PO SCH (06:18)
[2016-09-21] MEDS: INSULIN ASPART SUPPLEMENTAL SCALE SQ SCH ×4 (06:20→22:00)
[2016-09-21] MEDS: CEFEPIME INJ 1,000 MG in SODIUM CHLORIDE 0.9% INJ 100 ML IV SCH ×2 (08:12→21:54)
[2016-09-21] MEDS: METOPROLOL TARTRATE 100 MG TAB PO SCH ×2 (08:12→21:51)
[2016-09-21] MEDS: DILTIAZEM-CD 240 MG CAP ER PO SCH (08:12)
[2016-09-21] MEDS: INSULIN HUMAN NPH/R 70/30 1,000 UNITS/10 ML VIAL SQ SCH ×2 (08:13→17:00)
[2016-09-21] MEDS: SODIUM CHLORIDE 0.9% FLUSH 5 ML FLUSH FLUSH SCH ×2 (08:13→21:54)
[2016-09-21] MEDS: ASPIRIN EC 81 MG TABEC PO SCH (08:13)
[2016-09-21] MEDS ORDERED: VANCOMYCIN 1,500 MG/NS 500 ML IV SCH ×2 (11:00)
--- NOTE | 2016-09-21 18:13 | HHI.PR ---
Subjective Remarks "feels fluttering" telemetry- rate 90s-130s Objective Vitals Vital Signs Date Time Temp Pulse Resp B/P Pulse Ox O2 Delivery O2 Flow Rate FiO2 09/21/16 16:00 98.1 120 18 127/63 97 09/21/16 12:00 98.8 115 18 108/56 100 09/21/16 08:02 98.7 102 18 99/52 94 09/21/16 08:00 110 09/21/16 08:00 110 09/21/16 04:00 97.3 102 18 125/59 97 09/21/16 00:00 98.1 71 18 117/57 99 09/20/16 20:17 112 09/20/16 20:00 97.8 102 17 137/52 93 I/O 09/20/16 09/20/16 09/20/16 09/21/16 09/21/16 09/21/16 07:00 15:00 23:00 07:00 15:00 23:00 Intake Total 380 ml 240 ml 100 ml 900 ml Output Total 900 ml 550 ml 150 ml 150 ml Balance -520 ml -310 ml -50 ml 750 ml Intake Oral 380 ml 240 ml 100 ml 300 ml IV Total 600 ml Output Urine Total 900 ml 550 ml 150 ml 150 ml # Voids 1 # Bowel Movements 0 0 0 Result Diagram: 09/20/16 0506 09/20/16 0506 Imaging Last Impressions Chest X-Ray 09/19/16 1632 Signed Impressions: Service Date/Time: September 17:14 - CONCLUSION: No acute cardiopulmonary disease identified. Hema Braxton MD Objective Remarks awake and alert, laying flat no rales no wheezes irregularly irregular rhythm abdomen soft, right BKA left trace edema neuro exam unremarkable Date of Removal: Sep 20, 2016 A/P Problem List: (1) Sepsis ICD Code: A41.9 Status: Acute (2) UTI (urinary tract infection) ICD Code: N39.0 Status: Acute (3) A-fib ICD Code: I48.91 Status: Acute (4) COPD (chronic obstructive pulmonary disease) ICD Code: J44.9 Status: Chronic (5) Renal insufficiency ICD Code: N28.9 Status: Acute (6) Hypokalemia ICD Code: E87.6 Status: Acute (7) CHF (congestive heart failure) ICD Code: I50.9 Status: Chronic (8) DM (diabetes mellitus) ICD Code: E11.9 Status: Chronic Assessment and Plan 1. Sepsis: secondary to UTI- Klebsiella Continue on Cefepime. DC Vancomycin repeat Lactic Acid- normal. 3. Renal Insufficiency: Acute on Chronic. Creatinien 1.80, previously 1.10 on 09/12/16. IVF, repeat labs in am. 4. A-fib: w/ RVR. continue Lopressor 100 mg po bid - increase cardizem to 360. give 120 mg CD extra now. Will discuss with cardiology in am- ? amiodarone. Patient + reaction to Digoxin 5. Hypokalemia: resolved 6. DM: Uncontrolled. BS 438, no evidence of DKA. restart her regimen- overall better readings patient when asked very non compliant with diet 7. CHF: Echo 04/06/16 w/ EF 55-60%, CXR w/ no acute findings, No evidence of acute CHF, 8. DVT Prophylaxis: SCD/Teds. 9. Social work for d/c planning as needed. 1 CM consult- home health care nursing Problem Qualifiers (1) Sepsis: Qualified Code: A41.9 - Sepsis, due to unspecified organism Latha Freire MD Sep 21, 2016 18:13
[2016-09-21] MEDS ORDERED: DILTIAZEM-CD 120 MG CAP ER PO ONE (18:15)
[2016-09-21] MEDS: ACETAMINOPHEN 325 MG TAB PO PRN (21:55)
[2016-09-22] VITALS (7 sets, daily range): BP systolic 110–153; BP diastolic 55–69; PULSE 58–112; RESP 16–24; TEMP 97.3–98.5; O2SAT 94–100
[2016-09-22] MEDS: ISOSORBIDE MONONITRATE 30 MG TAB PO SCH (06:04)
[2016-09-22] MEDS: INSULIN ASPART SUPPLEMENTAL SCALE SQ SCH ×4 (06:05→21:29)
[2016-09-22] MEDS: DILTIAZEM-CD 180 MG CAP ER PO SCH (09:23)
[2016-09-22] MEDS: INSULIN HUMAN NPH/R 70/30 1,000 UNITS/10 ML VIAL SQ SCH ×2 (09:23→16:53)
[2016-09-22] MEDS: ASPIRIN EC 81 MG TABEC PO SCH (09:23)
[2016-09-22] MEDS: METOPROLOL TARTRATE 100 MG TAB PO SCH ×2 (09:23→21:28)
[2016-09-22] MEDS: CEFEPIME INJ 1,000 MG in SODIUM CHLORIDE 0.9% INJ 100 ML IV SCH (09:24)
[2016-09-22] MEDS: SODIUM CHLORIDE 0.9% FLUSH 5 ML FLUSH FLUSH SCH ×2 (09:24→21:32)
[2016-09-22 10:02] LABS: BICARBONATE 24.7 MEQ/L (21.0-32.0); POTASSIUM 4.1 MEQ/L (3.5-5.1)
--- NOTE | 2016-09-22 11:00 | HHI.PR ---
Subjective Remarks laying flat in bed feels episodic fluttering telemetry 80s- 90s occasioal low 100s patient requested to keep van there some family dynamics going home Objective Vitals Vital Signs Date Time Temp Pulse Resp B/P Pulse Ox O2 Delivery O2 Flow Rate FiO2 09/22/16 08:05 93 09/22/16 08:00 95 09/22/16 08:00 97.3 58 16 114/57 98 09/22/16 08:00 95 09/22/16 04:00 98.0 112 18 128/58 98 09/22/16 00:00 98.2 80 18 110/55 98 09/21/16 23:48 18 09/21/16 22:00 97 09/21/16 20:00 98.0 105 18 112/56 98 09/21/16 16:00 98.1 120 18 127/63 97 09/21/16 12:00 98.8 115 18 108/56 100 I/O 09/21/16 09/21/16 09/21/16 09/22/16 09/22/16 09/22/16 07:00 15:00 23:00 07:00 15:00 23:00 Intake Total 100 ml 900 ml 120 ml Output Total 150 ml 150 ml 400 ml Balance -50 ml 750 ml 120 ml -400 ml Intake Oral 100 ml 300 ml 120 ml IV Total 600 ml Output Urine Total 150 ml 150 ml 400 ml # Bowel Movements 0 Result Diagram: 09/20/16 0506 09/22/16 0828 Imaging Last Impressions Chest X-Ray 09/19/16 1632 Signed Impressions: Service Date/Time: September 17:14 - CONCLUSION: No acute cardiopulmonary disease identified. Hema Braxton MD Objective Remarks awake and alert, laying flat, appears calm no rales no wheezes irregularly irregular rhythm abdomen soft right BKA left LE no edema neuro exam unremarkable Date of Insertion: Sep 20, 2016 A/P Problem List: (1) Sepsis ICD Code: A41.9 Status: Acute (2) UTI (urinary tract infection) ICD Code: N39.0 Status: Acute (3) A-fib ICD Code: I48.91 Status: Acute (4) COPD (chronic obstructive pulmonary disease) ICD Code: J44.9 Status: Chronic (5) Renal insufficiency ICD Code: N28.9 Status: Acute (6) Hypokalemia ICD Code: E87.6 Status: Acute (7) CHF (congestive heart failure) ICD Code: I50.9 Status: Chronic (8) DM (diabetes mellitus) ICD Code: E11.9 Status: Chronic Assessment and Plan 1. Sepsis: secondary to UTI- Klebsiella on Cefepime.- change to po ciprofloxacin 500 mg po bdi 2/ repeat Lactic Acid- normal. 3. Renal Insufficiency: Acute on Chronic. Creatinine 1.80, previously 1.10 on 09/12/16. 4. A-fib: w/ RVR- rate variable - continue Lopressor 100 mg po bid - increase cardizem CD 360 mg CD Increase activity- and monitor rate- patient appears comfortable not on OAC with remote history of GIB on ASA Will discuss with cardiology in am- ? amiodarone. Patient + reaction to Digoxin 5. Hypokalemia: resolved 6. DM: Uncontrolled. BS 438, no evidence of DKA. restart her regimen- overall better readings A1C 12.6 pincrease regeimen atient when asked very non compliant with diet 7. CHF: Echo 04/06/16 w/ EF 55-60%, CXR w/ no acute findings, No evidence of acute CHF, 8. DVT Prophylaxis: SCD/Teds. 9. Social work for d/c planning as needed. 1 CM consult- home health care nursing Problem Qualifiers (1) Sepsis: Qualified Code: A41.9 - Sepsis, due to unspecified organism Latha Freire MD Sep 22, 2016 11:00
--- NOTE | 2016-09-22 13:23 | EKG ---
Date Performed: 09/20/2016 Time Performed: 10:59:20 PTAGE: 86 years EKG: ATRIAL FIBRILLATION WITH RAPID VENTRICULAR RESPONSE INFERIOR MYOCARDIAL INFARCTION Since pr evious tracing, no significant change noted ABNORMAL ECG PREVIOUS TRACING : 09/20/2016 08.24 DOCTOR: Ari Peoples Interpretating Date/Time 09/22/2016 13:22:08
[2016-09-22] MEDS: CIPROFLOXACIN 500 MG TAB PO SCH (21:28)
[2016-09-22] MEDS ORDERED: diphenhydrAMINE HCL 25 MG CAP PO ONE (23:00)
[2016-09-22] MEDS: traMADol HCL 50 MG TAB PO PRN (23:37)
[2016-09-23] VITALS (8 sets, daily range): BP systolic 127–151; BP diastolic 60–90; PULSE 64–87; RESP 18–24; TEMP 97.6–97.9; O2SAT 96–100
[2016-09-23] MEDS: ISOSORBIDE MONONITRATE 30 MG TAB PO SCH (05:22)
[2016-09-23] MEDS: traMADol HCL 50 MG TAB PO PRN ×3 (05:22→21:50)
[2016-09-23] MEDS: INSULIN ASPART SUPPLEMENTAL SCALE SQ SCH ×4 (06:15→21:00)
[2016-09-23] MEDS: SODIUM CHLORIDE 0.9% FLUSH 5 ML FLUSH FLUSH SCH ×2 (07:42→21:51)
[2016-09-23] MEDS: ASPIRIN EC 81 MG TABEC PO SCH (07:43)
[2016-09-23] MEDS: DILTIAZEM-CD 180 MG CAP ER PO SCH (07:43)
[2016-09-23] MEDS: CIPROFLOXACIN 500 MG TAB PO SCH ×2 (07:43→21:50)
[2016-09-23] MEDS: METOPROLOL TARTRATE 100 MG TAB PO SCH ×2 (07:43→21:50)
[2016-09-23] MEDS: INSULIN HUMAN NPH/R 70/30 1,000 UNITS/10 ML VIAL SQ SCH ×2 (07:44→16:44)
[2016-09-23] MEDS ORDERED: PHARMACY ORDERED LAB XX ONE (10:45)
--- NOTE | 2016-09-23 13:44 | PD.CARD.PN ---
Subjective Subjective Remarks Mildly dyspneic most of the day, even at rest. No palpitations, dizziness, angina, PND. Objective Medications Item Value Date Time Diltiazem HCl 360 mg 09/22/16 0900 (Cardizem Cd) DAILY/PO 09/23/16 0743 Aspirin 81 mg 09/21/16 0900 (Ecotrin Ec) DAILY/PO 09/23/16 0743 Isosorbide 30 mg 09/21/16 0700 Mononitrate DAILY@07/PO 09/23/16 0522 (Imdur) Metoprolol 100 mg 09/20/16 0900 Tartrate Q12HR/PO 09/23/16 0743 (Lopressor) Vital Signs / I&O Vital Signs Date Time Temp Pulse Resp B/P Pulse Ox O2 Delivery O2 Flow Rate FiO2 09/23/16 11:58 97.8 81 24 136/60 99 09/23/16 09:41 72 09/23/16 09:41 72 09/23/16 08:00 97.6 75 20 151/66 100 09/23/16 06:32 18 09/23/16 04:00 97.9 64 18 135/60 99 09/23/16 00:38 87 09/23/16 00:00 97.9 78 18 136/90 96 09/22/16 20:00 98.5 83 18 153/69 99 09/22/16 16:00 97.7 82 24 132/57 100 I/O 09/22/16 09/22/16 09/22/16 09/23/16 09/23/16 09/23/16 07:00 15:00 23:00 07:00 15:00 23:00 Intake Total 600 ml 360 ml 0 ml Output Total 400 ml 325 ml 250 ml 250 ml Balance -400 ml 275 ml 110 ml -250 ml Intake Oral 600 ml 360 ml 0 ml Output Urine Total 400 ml 325 ml 250 ml 250 ml # Bowel Movements 0 Physical Exam GENERAL: Well developed, well nourished. No acute distress. HEENT: Jugular venous pressure is normal. CHEST: Lungs clear to auscultation anteriorly. CARDIAC: Irregular rate and rhythm without S3, S4, or murmur. ABDOMEN: Soft, nontender, no hepatosplenomegaly. Bowel sounds present. EXTREMITIES: No clubbing, cyanosis, or edema. Assessment and Plan Problem List: (1) Atrial fibrillation Assessment and Plan: HR's mostly normal though increase substantially with minimal exertion. Now on fairly maximum metoprolol, Cardizem dosing. Apparent history of allergy to digoxin. Agree with adding Amiodarone mainly for optimizing HR control. Will start Amiodarone 400 mg qd. Continue daily aspirin. (2) CAD (coronary artery disease) Assessment and Plan: Stable. No definite recent angina. Continue medical therapy. Code Status full code Discussed Condition With patient Problem Qualifiers (1) Atrial fibrillation: Qualified Code: I48.0 - Paroxysmal atrial fibrillation (2) CAD (coronary artery disease): Qualified Code: I25.10 - Coronary artery disease involving ramona coronary artery of ramona heart without angina pectoris Carlo Mario MD Sep 23, 2016 13:44
[2016-09-23] MEDS: AMIODARONE 200 MG TAB PO SCH (14:12)
--- NOTE | 2016-09-23 15:40 | HHI.FF ---
Face to Face Verification Diagnosis: (1) Atrial fibrillation with RVR (2) Hyperglycemia Physical Therapy Order: Evaluate and Treat, Improve ambulation Home Health Nursing Order: Medical education Signs/symptoms of disease process Medication education-adverse effect Nursing assessment with vital signs Drive In Teller Order: To Evaluate: Support services I have seen patient Amber Feldman on 09/23/16. My clinical findings support the need for the requested home health care services because: Ltd mobility - disease progression Patient has SOB Need for psychosocial assistance I certify that my clinical findings support that this patient is homebound because: Need for psychosocial assistance Poor cardiac reserve Latha Freire MD Sep 23, 2016 15:40
--- NOTE | 2016-09-23 15:45 | HHI.PR ---
Subjective Remarks feeling better agrees to getting around- we will get her a wheelchair to increase activity and monitor her heart rate Objective Vitals Vital Signs Date Time Temp Pulse Resp B/P Pulse Ox O2 Delivery O2 Flow Rate FiO2 09/23/16 11:58 97.8 81 24 136/60 99 09/23/16 09:41 72 09/23/16 09:41 72 09/23/16 08:00 97.6 75 20 151/66 100 09/23/16 06:32 18 09/23/16 04:00 97.9 64 18 135/60 99 09/23/16 00:38 87 09/23/16 00:00 97.9 78 18 136/90 96 09/22/16 20:00 98.5 83 18 153/69 99 09/22/16 16:00 97.7 82 24 132/57 100 I/O 09/22/16 09/22/16 09/22/16 09/23/16 09/23/16 09/23/16 07:00 15:00 23:00 07:00 15:00 23:00 Intake Total 600 ml 360 ml 0 ml 480 ml Output Total 400 ml 325 ml 250 ml 250 ml 250 ml Balance -400 ml 275 ml 110 ml -250 ml 230 ml Intake Oral 600 ml 360 ml 0 ml 480 ml Output Urine Total 400 ml 325 ml 250 ml 250 ml 250 ml # Bowel Movements 0 Result Diagram: 09/20/16 0506 09/22/16 0828 Imaging Last Impressions Chest X-Ray 09/19/16 1632 Signed Impressions: Service Date/Time: September 17:14 - CONCLUSION: No acute cardiopulmonary disease identified. Hema Braxton MD Objective Remarks awake and alert, appears calm right neck- central line in place no rales no wheezes irregularly irregular rhythm abdomen soft right BKA left LE no edema neuro exam unremarkable Date of Insertion: Sep 20, 2016 A/P Problem List: (1) Sepsis ICD Code: A41.9 Status: Acute (2) UTI (urinary tract infection) ICD Code: N39.0 Status: Acute (3) A-fib ICD Code: I48.91 Status: Acute (4) COPD (chronic obstructive pulmonary disease) ICD Code: J44.9 Status: Chronic (5) Renal insufficiency ICD Code: N28.9 Status: Acute (6) Hypokalemia ICD Code: E87.6 Status: Acute (7) CHF (congestive heart failure) ICD Code: I50.9 Status: Chronic (8) DM (diabetes mellitus) ICD Code: E11.9 Status: Chronic Assessment and Plan 1. Sepsis: secondary to UTI- Klebsiella on Cefepime.- changed to po ciprofloxacin 500 mg po bdi 09/22 repeat Lactic Acid- normal. 3. Renal Insufficiency: Acute on Chronic. Creatinine 1.80, previously 1.10 on 09/12/16. 4. A-fib: w/ RVR- rate variable - continue Lopressor 100 mg po bid - increase cardizem CD 360 mg CD Increase activity- and monitor rate- patient appears comfortable not on OAC with remote history of GIB on ASA amiodaron 400 mg po daily- 09/22 5. Hypokalemia: resolved 6. DM: Uncontrolled. BS 438, no evidence of DKA. restart her regimen- overall better readings A1C 12.6 pincrease regeimen atient when asked very non compliant with diet 7. CHF: Echo 04/06/16 w/ EF 55-60%, CXR w/ no acute findings, No evidence of acute CHF, 8. DVT Prophylaxis: SCD/Teds. 9. Social work for d/c planning as needed. 1 CM consult- home health care nursing Problem Qualifiers (1) Sepsis: Qualified Code: A41.9 - Sepsis, due to unspecified organism Latha Freire MD Sep 23, 2016 15:45
[2016-09-24] VITALS (7 sets, daily range): BP systolic 101–157; BP diastolic 60–76; PULSE 61–114; RESP 15–20; TEMP 97.1–98.1; O2SAT 94–100
[2016-09-24] MEDS: INSULIN ASPART SUPPLEMENTAL SCALE SQ SCH ×4 (06:32→21:23)
[2016-09-24] MEDS: ISOSORBIDE MONONITRATE 30 MG TAB PO SCH (06:43)
[2016-09-24 07:00] LABS: BICARBONATE 22.9 MEQ/L (21.0-32.0); MAGNESIUM 1.7 MG/DL (1.5-2.5); POTASSIUM 4.4 MEQ/L (3.5-5.1)
[2016-09-24 07:06] LABS: AUTOMATED NEUTROPHIL # 7.3 TH/MM3 (1.8-7.7); BASOPHIL # 0.1 TH/MM3 (0-0.2); BASOPHIL % 0.6 % (0.0-2.0); EOSINOPHIL # 0.2 TH/MM3 (0-0.4); EOSINOPHIL % 2.2 % (0.0-4.0); HEMATOCRIT 30.2 % (35.0-46.0); HEMO FLAGS AUTO DIFF; LYMPH % 13.3 % (9.0-44.0); LYMPHOCYTE # 1.3 TH/MM3 (1.0-4.8); MEAN CELL VOLUME 75.5 FL (80.0-100.0); MEAN CORPUSCULAR HEMOGLOBIN 23.2 PG (27.0-34.0); MEAN CORPUSCULAR HGB CONC 30.7 % (32.0-36.0); NEUT % 73.9 % (16.0-70.0); PLATELET COUNT 229 TH/MM3 (150-450); RED BLOOD COUNT 3.99 MIL/MM3 (4.00-5.30); RED CELL DISTRIBUTION WIDTH 17.3 % (11.6-17.2); WHITE BLOOD COUNT 9.9 TH/MM3 (4.0-11.0)
[2016-09-24 08:04] LABS: SCAN/DIFF AUTO DIFF CONFIRMED
[2016-09-24] MEDS: SODIUM CHLORIDE 0.9% FLUSH 5 ML FLUSH FLUSH SCH ×2 (08:56→21:25)
[2016-09-24] MEDS: ASPIRIN EC 81 MG TABEC PO SCH (08:58)
[2016-09-24] MEDS: METOPROLOL TARTRATE 100 MG TAB PO SCH ×2 (08:58→21:24)
[2016-09-24] MEDS: INSULIN HUMAN NPH/R 70/30 1,000 UNITS/10 ML VIAL SQ SCH ×2 (08:58→18:05)
[2016-09-24] MEDS: CIPROFLOXACIN 500 MG TAB PO SCH ×2 (08:58→21:24)
[2016-09-24] MEDS: DILTIAZEM-CD 180 MG CAP ER PO SCH (08:58)
[2016-09-24] MEDS: AMIODARONE 200 MG TAB PO SCH (08:58)
--- NOTE | 2016-09-24 11:53 | HHI.PR ---
Subjective Remarks Follow-up visit sepsis with UTI, A. fib, CHF, DM 2. Patient seen today. States she is sleepy and tired. Reports that she has been awake and all night that she doing get sleep. As per RN, Muñoz was DC'd yesterday afternoon at around 1600 but patient is unable to void overnight that Muñoz was reinserted. Patient requesting to go home. States she's can participate in physical therapy today and we will be able to avoid moving around. She hasn't been in and out of bed for a while. Denies pain and discomfort. Denies SOB/ dyspnea. Denies chest pain, palpitations, headaches, dizziness. Denies fevers, chills, n/ v/d. Denies dysuria, hematuria. Objective Vitals Vital Signs Date Time Temp Pulse Resp B/P Pulse Ox O2 Delivery O2 Flow Rate FiO2 09/24/16 08:04 79 09/24/16 08:00 97.9 114 20 157/76 96 09/24/16 04:00 97.4 72 20 152/62 100 09/24/16 00:00 97.1 64 18 124/60 100 09/23/16 20:00 97.6 80 20 142/67 100 09/23/16 16:00 97.7 66 20 127/60 100 09/23/16 11:58 97.8 81 24 136/60 99 I/O 09/23/16 09/23/16 09/23/16 09/24/16 09/24/16 09/24/16 07:00 15:00 23:00 07:00 15:00 23:00 Intake Total 0 ml 480 ml 360 ml 360 ml Output Total 250 ml 250 ml 0 ml 300 ml Balance -250 ml 230 ml 360 ml 60 ml Intake Oral 0 ml 480 ml 360 ml 360 ml Output Urine Total 250 ml 250 ml 0 ml 300 ml # Voids 0 Result Diagram: 09/24/16 0623 09/24/16 0623 Imaging Last Impressions Chest X-Ray 09/19/16 1632 Signed Impressions: Service Date/Time: September 17:14 - CONCLUSION: No acute cardiopulmonary disease identified. Hema Braxton MD Objective Remarks GENERAL: This is a well-nourished, well-developed patient, in no apparent distress. HEENT: Normocephalic. Pupils equal round and reactive. Nose without bleeding. Airway patent. NECK: Trachea midline. No JVD. Supple. CARDIOVASCULAR: Regular rate and rhythm without murmurs, gallops, or rubs. RESPIRATORY: Clear to auscultation. Breath sounds equal bilaterally. No wheezes , rales, or rhonchi. GASTROINTESTINAL: Abdomen soft, non-tender, nondistended. Bowel Sounds normoactive x4. : Muñoz catheter in place draining clear yellow urine. MUSCULOSKELETAL: Extremities without clubbing, cyanosis, or edema. Right AKA. NEUROLOGICAL: Awake and alert. No focal neuro deficit. DEE. Normal speech. Date of Insertion: Sep 20, 2016 A/P Problem List: (1) Sepsis ICD Code: A41.9 Status: Acute (2) UTI (urinary tract infection) ICD Code: N39.0 Status: Acute (3) A-fib ICD Code: I48.91 Status: Acute (4) COPD (chronic obstructive pulmonary disease) ICD Code: J44.9 Status: Chronic (5) Renal insufficiency ICD Code: N28.9 Status: Acute (6) Hypokalemia ICD Code: E87.6 Status: Acute (7) CHF (congestive heart failure) ICD Code: I50.9 Status: Chronic (8) DM (diabetes mellitus) ICD Code: E11.9 Status: Chronic Assessment and Plan Patient is an 86-year-old female who came to the hospital with shortness of breath 2-3 days. Chest x-ray without any acute findings. Patient found to have urinary tract infection. Sepsis: secondary to UTI- Klebsiella Previously on Cefepime.- changed to po ciprofloxacin 500 mg po BID started repeat Lactic Acid- normal. Renal Insufficiency: Acute on Chronic. Creatinine 1.80, previously 1.10 on . - Improved. [employer]DEL [employer] MECH[employer]IC 0.83 09/24/15 A-fib: w/ RVR- rate variable - continue Lopressor 100 mg po bid - increase cardizem CD 360 mg CD -Increase activity- and monitor rate- patient appears comfortable - not on OAC with remote history of GIB, on ASA -Continue amiodarone 400 mg po daily- 2/ Hypokalemia: resolved DM: Uncontrolled. BS 438, no evidence of DKA. -Restart her regimen- HA1C 12.6 -Patient on 70/30 twice a day. Insulin sliding scale. -Monitor Accu-Cheks. Will start metformin 500 mg. CHF: Echo 04/06/16 w/ EF 55-60%, CXR w/ no acute findings, No evidence of acute CHF. - Continue isosorbide, diltiazem, ASA DVT Prophylaxis: SCD/Teds. Social work for d/c planning as needed. Plan to DC home with home health care. Discharge Planning Plan for discharge tomorrow if patient is able to void without Muñoz catheter and participates in physical therapy. Case management to be involved to set up home health care. Problem Qualifiers (1) Sepsis: Qualified Code: A41.9 - Sepsis, due to unspecified organism Duke Doran Sep 24, 2016 11:53 Mateo Lang MD Sep 24, 2016 16:22
--- NOTE | 2016-09-24 13:24 | PD.CARD.PN ---
Subjective Subjective Remarks Complains of epigastric, upper abdominal discomfort. No N/V/constipation. No CP, palpitations, dizziness. Mild dyspnea at rest persists. Objective Medications Item Value Date Time Amiodarone HCl 400 mg 09/23/16 1400 (Cordarone) DAILY/PO 09/24/16 0858 Diltiazem HCl 360 mg 09/22/16 0900 (Cardizem Cd) DAILY/PO 09/24/16 0858 Aspirin 81 mg 09/21/16 0900 (Ecotrin Ec) DAILY/PO 09/24/16 0858 Isosorbide 30 mg 09/21/16 0700 Mononitrate DAILY@07/PO 09/24/16 0643 (Imdur) Metoprolol 100 mg 09/20/16 0900 Tartrate Q12HR/PO 09/24/16 0858 (Lopressor) Vital Signs / I&O Vital Signs Date Time Temp Pulse Resp B/P Pulse Ox O2 Delivery O2 Flow Rate FiO2 09/24/16 08:04 79 09/24/16 08:00 97.9 114 20 157/76 96 09/24/16 04:00 97.4 72 20 152/62 100 09/24/16 00:00 97.1 64 18 124/60 100 09/23/16 20:00 97.6 80 20 142/67 100 09/23/16 16:00 97.7 66 20 127/60 100 I/O 09/23/16 09/23/16 09/23/16 09/24/16 09/24/16 09/24/16 07:00 15:00 23:00 07:00 15:00 23:00 Intake Total 0 ml 480 ml 360 ml 360 ml Output Total 250 ml 250 ml 0 ml 300 ml Balance -250 ml 230 ml 360 ml 60 ml Intake Oral 0 ml 480 ml 360 ml 360 ml Output Urine Total 250 ml 250 ml 0 ml 300 ml # Voids 0 Physical Exam GENERAL: Well developed, well nourished. No acute distress. HEENT: Jugular venous pressure is normal. CHEST: Lungs clear to auscultation anteriorly. CARDIAC: Irregular rate and rhythm without S3, S4, or murmur. ABDOMEN: Soft, nontender, no hepatosplenomegaly. Bowel sounds present. EXTREMITIES: No clubbing, cyanosis, or edema. Laboratory Laboratory Tests Test 09/24/16 06:23 White Blood Count 9.9 TH/MM3 Red Blood Count 3.99 MIL/MM3 Hemoglobin 9.3 GM/DL Hematocrit 30.2 % Mean Corpuscular Volume 75.5 FL Mean Corpuscular Hemoglobin 23.2 PG Mean Corpuscular Hemoglobin 30.7 % Concent Red Cell Distribution Width 17.3 % Platelet Count 229 TH/MM3 Mean Platelet Volume 8.6 FL Neutrophils (%) (Auto) 73.9 % Lymphocytes (%) (Auto) 13.3 % Monocytes (%) (Auto) 10.0 % Eosinophils (%) (Auto) 2.2 % Basophils (%) (Auto) 0.6 % Neutrophils # (Auto) 7.3 TH/MM3 Lymphocytes # (Auto) 1.3 TH/MM3 Monocytes # (Auto) 1.0 TH/MM3 Eosinophils # (Auto) 0.2 TH/MM3 Basophils # (Auto) 0.1 TH/MM3 CBC Comment AUTO DIFF Differential Comment AUTO DIFF CONFIRMED Hematology Comments Sodium Level 136 MEQ/L Potassium Level 4.4 MEQ/L Chloride Level 105 MEQ/L Carbon Dioxide Level 22.9 MEQ/L Anion Gap 8 MEQ/L Blood Urea Nitrogen 16 MG/DL Creatinine 0.83 MG/DL Estimat Glomerular Filtration 65 ML/MIN Rate Random Glucose 127 MG/DL Calcium Level 9.0 MG/DL Magnesium Level 1.7 MG/DL Assessment and Plan Problem List: (1) Atrial fibrillation Assessment and Plan: HR's mostly under control, periodic spikes with activity. Now on fairly maximum metoprolol, Cardizem dosing. Apparent history of allergy to digoxin. Amiodarone added yesterday mainly for optimizing HR control. REC continue current medical regimen, OK for discharge from a cardiac standpoint (2) CAD (coronary artery disease) Assessment and Plan: Stable. No definite recent angina. Continue medical therapy. Code Status full code Discussed Condition With patient Problem Qualifiers (1) Atrial fibrillation: Qualified Code: I48.0 - Paroxysmal atrial fibrillation (2) CAD (coronary artery disease): Qualified Code: I25.10 - Coronary artery disease involving habematolel coronary artery of habematolel heart without angina pectoris Carlo Mario MD Sep 24, 2016 13:23
[2016-09-24] MEDS: metFORMIN HCL 500 MG TAB PO SCH ×2 (14:00→18:05)
--- NOTE | 2016-09-24 18:00 | EKG ---
Date Performed: 09/24/2016 Time Performed: 05:50:36 PTAGE: 86 years EKG: Atrial fibrillation Possible anterior infarct - age undetermined Inferior/lateral T wave ch anges are nonspecific Generalized low QRS voltages Since previous tracing, no significant change note d Abnormal ECG PREVIOUS TRACING : 09/20/2016 10.59 DOCTOR: Ángel Malhotra Interpretating Date/Time 09/24/2016 17:59:44
[2016-09-24] MEDS: traMADol HCL 50 MG TAB PO PRN (22:40)
[2016-09-25] VITALS: BP 124/60; PULSE 67; RESP 16; TEMP 97.8; O2SAT 95
[2016-09-25 04:00] VITALS: BP 135/60; PULSE 72; RESP 15; TEMP 97.4; O2SAT 94
[2016-09-25] MEDS: ISOSORBIDE MONONITRATE 30 MG TAB PO SCH (05:31)
[2016-09-25] MEDS: INSULIN ASPART SUPPLEMENTAL SCALE SQ SCH ×3 (06:15→16:00)
[2016-09-25 08:00] VITALS: BP 133/63; PULSE 71; RESP 18; TEMP 97.5; O2SAT 95
[2016-09-25] MEDS: metFORMIN HCL 500 MG TAB PO SCH ×2 (08:25→17:14)
[2016-09-25] MEDS: INSULIN HUMAN NPH/R 70/30 1,000 UNITS/10 ML VIAL SQ SCH ×2 (08:25→17:13)
[2016-09-25] MEDS: CIPROFLOXACIN 500 MG TAB PO SCH (08:25)
[2016-09-25] MEDS: ASPIRIN EC 81 MG TABEC PO SCH (08:25)
[2016-09-25] MEDS: DILTIAZEM-CD 180 MG CAP ER PO SCH (08:25)
[2016-09-25] MEDS: SODIUM CHLORIDE 0.9% FLUSH 5 ML FLUSH FLUSH SCH (08:25)
[2016-09-25] MEDS: AMIODARONE 200 MG TAB PO SCH (08:25)
[2016-09-25] MEDS: METOPROLOL TARTRATE 100 MG TAB PO SCH (08:25)
[2016-09-25 12:00] VITALS: BP 131/61; PULSE 77; RESP 18; TEMP 97.8; O2SAT 94
[2016-09-25 16:00] VITALS: BP 126/103; PULSE 51; PULSE 65; RESP 16; RESP 18; TEMP 97.8; O2SAT 100
--- NOTE | 2016-09-25 17:00 | HHI.FF ---
Face to Face Verification Diagnosis: (1) Sepsis secondary to UTI (2) Atrial fibrillation with RVR (3) Benign hypertension (4) Diabetes mellitus, type II (5) History of congestive heart failure (6) Shortness of breath Physical Therapy Order: Evaluate and Treat, Improve ambulation, Strength and gait training Home Health Nursing Order: Medical education Signs/symptoms of disease process CHF education Medication education-adverse effect Nursing assessment with vital signs I have seen patient Amber Feldman on 09/25/16. My clinical findings support the need for the requested home health care services because: Ltd mobility - disease progression Patient has SOB Deconditioned w/ increased weakness Limited ability to care for self High risk of falls I certify that my clinical findings support that this patient is homebound because: Unsteady gait/balance Poor cardiac reserve Mateo Lang MD Sep 25, 2016 17:00
[2016-09-25] MEDS ORDERED: METF500 PO (17:19)
[2016-09-25] MEDS ORDERED: AMIO200T PO (17:19)
[2016-09-25] MEDS ORDERED: NOVO7030P2 SQ (17:19)
[2016-09-25] MEDS ORDERED: CIPR-9 PO (17:19)
--- NOTE | 2016-09-25 17:19 | HHI.DS ---
Discharge Summary Admission Date Sep 19, 2016 at 22:36 Discharge Date: Sep 25, 2016 Admitting Diagnosis (1) Sepsis ICD Code: A41.9 (2) UTI (urinary tract infection) ICD Code: N39.0 (3) A-fib ICD Code: I48.91 (4) COPD (chronic obstructive pulmonary disease) ICD Code: J44.9 (5) Renal insufficiency ICD Code: N28.9 (6) Hypokalemia ICD Code: E87.6 (7) CHF (congestive heart failure) ICD Code: I50.9 (8) DM (diabetes mellitus) ICD Code: E11.9 Procedures None Brief History - From Admission This is an 86-year-old female with a PMH of HTN, COPD, DM, A. fib, h/o Right BKA and CHF (Echo 04/06/16 w/ EF 55-60%) who was brought to the ER by EMS secondary to complaints of cough and SOB x2-3 days. Denies fever, chills, nausea, vomiting or chest pain. Pt noted to have wheezing by EMS, s/p Solu- Medrol and DuoNeb en route to ER. Upon arrival, BP 152/72, HR 124, O2 sat 100% on RA, Temp 98.7. WBC 17.9. K+ 3.2. Creatinine 1.80, previously 1.10 on . BS 438, CO2 normal. Lactic Acid 4.2. CXR w/ no acute findings. S/p Vanc/ Zosyn and IVF in ER. CBC/BMP: 09/24/16 0623 09/24/16 0623 Significant Findings Laboratory Tests Test 09/24/16 06:23 Red Blood Count 3.99 MIL/MM3 (4.00-5.30) Hemoglobin 9.3 GM/DL (11.6-15.3) Hematocrit 30.2 % (35.0-46.0) Mean Corpuscular Volume 75.5 FL (80.0-100.0) Mean Corpuscular Hemoglobin 23.2 PG (27.0-34.0) Mean Corpuscular Hemoglobin 30.7 % Concent (32.0-36.0) Red Cell Distribution Width 17.3 % (11.6-17.2) Neutrophils (%) (Auto) 73.9 % (16.0-70.0) Monocytes (%) (Auto) 10.0 % (0.0-8.0) Monocytes # (Auto) 1.0 TH/MM3 (0-0.9) Estimat Glomerular Filtration 65 ML/MIN (>89) Rate Random Glucose 127 MG/DL (74-106) Imaging Last Impressions Chest X-Ray 09/19/16 1632 Signed Impressions: Service Date/Time: September 17:14 - CONCLUSION: No acute cardiopulmonary disease identified. Hema Braxton MD PE at Discharge GENERAL: This is a well-nourished, well-developed patient, in no apparent distress. HEENT: Normocephalic. Pupils equal round and reactive. Nose without bleeding. Airway patent. NECK: Trachea midline. No JVD. Supple. CARDIOVASCULAR: Regular rate and rhythm without murmurs, gallops, or rubs. RESPIRATORY: Clear to auscultation. Breath sounds equal bilaterally. No wheezes , rales, or rhonchi. GASTROINTESTINAL: Abdomen soft, non-tender, nondistended. Bowel Sounds normoactive x4. : Muñoz catheter in place draining clear yellow urine. MUSCULOSKELETAL: Extremities without clubbing, cyanosis, or edema. Right AKA. NEUROLOGICAL: Awake and alert. No focal neuro deficit. DEE. Normal speech. Pt update on day of discharge Patient reports that she is feeling well. She is anxious to go home. Hospital Course 86-year-old female who came to the hospital with shortness of breath 2-3 days. Chest x-ray without any acute findings. Patient found to have urinary tract infection. Evaluation and treatment course detailed below: Sepsis: secondary to UTI- Klebsiella Previously on Cefepime.- changed to po ciprofloxacin 500 mg po BID. patient will continue oral antibiotics to complete the course of treatment. Renal Insufficiency: Acute on Chronic. Creatinine 1.80, previously 1.10 on . - Improved. CLINIC SPECIALIST 0.83 09/24/15 A-fib: w/ RVR- rate variable - continue Lopressor 100 mg po bid -continue Cardizem - not on OAC with remote history of GIB, on ASA -Continue amiodarone 400 mg po daily- 2/ Hypokalemia: resolved DM: Uncontrolled. - HA1C 12.6 -Patient on 70/30 twice a day. Insulin sliding scale. Insulin increased. Patient was also started on metformin with better control of blood sugars. CHF: Echo 04/06/16 w/ EF 55-60%, CXR w/ no acute findings, No evidence of acute CHF. - Continue isosorbide, diltiazem, ASA Pt Condition on Discharge: Good Discharge Disposition: Disch w/ Home Health Serv Discharge Time: <= 30 minutes Discharge Instructions DIET: Follow Instructions for: Heart Healthy Diet Activities you can perform: Regular-No Restrictions New Medications: Amiodarone (Amiodarone) 200 Mg Tab 400 MG PO DAILY #30 TAB Ciprofloxacin (Cipro) 500 Mg Tab 500 MG PO Q12HR #6 TAB Metformin (Glucophage) 500 Mg Tab 500 MG PO BIDPC #60 TAB Changed Medications: Diltiazem CD 24 HR (Diltiazem CD 24 HR) 180 Mg Caper 180 MG PO DAILY #30 Ref 0 CAP (Changed from: Diltiazem CD 24 HR (Cardizem CD 24 HR) 240 Mg Caper 240 Mg PO DAILY #30 CAP Ref 0) Diltiazem CD 24 HR (Diltiazem CD 24 HR) 180 Mg Caper 180 MG PO DAILY #30 Ref 0 CAP (Changed from: Diltiazem CD 24 HR (Cardizem CD 24 HR) 240 Mg Caper 240 Mg PO DAILY #30 CAP Ref 0) Insulin Human Isophane-Regular 70-30 Inj (Novolin 70-30 Inj) 1,000 Unit/10 Ml Vial 18 UNITS SQ BID@08,17 DM #10 INJECTION (Changed from: 15 UNITS; Removed Days) Continued Medications: Allopurinol (Allopurinol) 100 Mg Tab 100 MG PO DAILY Gout #30 Ref 0 TAB Aspirin (Aspirin) 81 Mg Tabdr 81 MG PO DAILY TAB Atorvastatin (Atorvastatin) 10 Mg Tab 10 MG PO HS Cholesterol Management #30 Ref 0 TAB Ipratropium HFA 12.9 GM Inh (Atrovent HFA 12.9 GM Inh) 17 Mcg/Act Aer 1 PUFF INH DIRECTED PRN SHORTNESS OF BREATH #1 Ref 0 INHALER Isosorbide Mononitrate ER (Isosorbide Mononitrate ER) 30 Mg Alejandro 30 MG PO DAILY Prevent Chest Pain #30 Ref 0 TAB Metoprolol Tartrate (Lopressor) 100 Mg Tab 100 MG PO BID [facility] #60 Ref 0 TAB Discontinued Medications: Amitriptyline HCl (Elavil) 25 Mg Tab 75 MG PO HS Furosemide (Lasix) 40 Mg Tab 40 MG PO DAILY card #30 TAB Polyethylene Glycol 3350 Powder (Miralax Powder) 17 Gm Powd 17 GM PO DAILY Mix and dissolve one measuring cap-ful (17 grams) in water or juice. Constipation #1 Ref 0 BOTTLE Mateo Lang MD Sep 25, 2016 17:19
[2016-09-25] MEDS ORDERED: DILT180C56 PO (17:20)
== END 2016-09-25 21:54 | disposition home health service (06) | DRG 872 ==
LOC: NEPE 16:10 → NEDA 22:36 → NEDH 09-20 02:24 → N04B 09-20 14:48
PROVIDERS: ADMIT Family Medicine; ATTEND Family Medicine
PROC: 0T9B70Z Drainage of Bladder with Drainage Device, Via Natural or Artificial Opening (ICD-10-PCS; principal; 2016-09-19)
DX: A41.9 Sepsis, unspecified organism (principal); E11.22 Type 2 diabetes mellitus with diabetic chronic kidney disease; E11.65 Type 2 diabetes mellitus with hyperglycemia; I50.9 Heart failure, unspecified; J44.1 Chronic obstructive pulmonary disease with (acute) exacerbation; E86.0 Dehydration; I48.0 Paroxysmal atrial fibrillation; N39.0 Urinary tract infection, site not specified; I12.9 Hypertensive chronic kidney disease with stage 1 through stage 4 chronic kidney disease, or unspecified chronic kidney disease; E87.6 Hypokalemia; H91.91 Unspecified hearing loss, right ear; I25.10 Atherosclerotic heart disease of native coronary artery without angina pectoris; N18.9 Chronic kidney disease, unspecified; M17.12 Unilateral primary osteoarthritis, left knee; Z89.511 Acquired absence of right leg below knee; Z79.4 Long term (current) use of insulin; Z79.82 Long term (current) use of aspirin; Z86.14 Personal history of Methicillin resistant Staphylococcus aureus infection; Z87.891 Personal history of nicotine dependence; Z95.5 Presence of coronary angioplasty implant and graft; E78.00 Pure hypercholesterolemia, unspecified; K44.9 Diaphragmatic hernia without obstruction or gangrene; L97.529 Non-pressure chronic ulcer of other part of left foot with unspecified severity; Z88.5 Allergy status to narcotic agent; Z88.8 Allergy status to other drugs, medicaments and biological substances; N28.9 Disorder of kidney and ureter, unspecified; E03.9 Hypothyroidism, unspecified; E78.5 Hyperlipidemia, unspecified; Z91.11 Patient's noncompliance with dietary regimen; B96.1 Klebsiella pneumoniae [K. pneumoniae] as the cause of diseases classified elsewhere
CPT/HCPCS: 36600; 51702; 71010; 80048; 80053; 80202; 81001; 82010; 82550; 82805; 82948; 83036; 83605; 83735; 83880; 84484; 85025; 87040; 87077; 87086; 87186; 93005; 94640; 94664; 96361; 96372; 96374; 96375; J0692; J1815; J2270; J2405; J2543; J3370; J3480; J7030; J7040; J7042; J7050

== ENCOUNTER 2016-10-06 18:35 | Inpatient (IN) | payer OTHER, MEDICARE ==
[~2016-10-06] VITALS: Ht 170.2 cm; Wt 77.3 kg
[~2016-10-06 18:35] MED LIST changes: +AMIO200T PO; -AMIT1TAB79 PO; +ASPI1TAB69 PO; -CARD240C6 PO; +CIPR-9 PO; -CLIN1CAP6 PO; +DILT180C56 PO; -FURO1TAB60 PO; +METF500 PO; -MIRA33504 PO
[2016-10-06 18:53] VITALS: BP 91/52; PULSE 90; RESP 20; TEMP 97.7; TEMP 98.2; O2SAT 99
[2016-10-06 18:56] VITALS: BP 91/52; PULSE 79; RESP 20; TEMP 97.7; TEMP 98.4; O2SAT 99
[2016-10-06 19:12] LABS: MEAN CORPUSCULAR HGB CONC 29.9 % (32.0-36.0)
[2016-10-06] MEDS ORDERED: SODIUM CHLOR 0.9% 1000 ML INJ 1,000 ML IV ONE (19:15)
[2016-10-06 19:36] LABS: AUTOMATED NEUTROPHIL # 11.2 TH/MM3 (1.8-7.7); BASOPHIL % 0.4 % (0.0-2.0); EOSINOPHIL # 0.1 TH/MM3 (0-0.4); EOSINOPHIL % 0.6 % (0.0-4.0); HEMATOCRIT 30.9 % (35.0-46.0); LYMPH % 6.3 % (9.0-44.0); LYMPHOCYTE # 0.8 TH/MM3 (1.0-4.8); MEAN CELL VOLUME 76.6 FL (80.0-100.0); MEAN CORPUSCULAR HEMOGLOBIN 22.9 PG (27.0-34.0); MONO % 3.3 % (0.0-8.0); NEUT % 89.4 % (16.0-70.0); PLATELET COUNT 286 TH/MM3 (150-450); RED BLOOD COUNT 4.03 MIL/MM3 (4.00-5.30); RED CELL DISTRIBUTION WIDTH 17.8 % (11.6-17.2); WHITE BLOOD COUNT 12.5 TH/MM3 (4.0-11.0)
[2016-10-06 19:41] LABS: HEMO FLAGS AUTO DIFF
[2016-10-06] MEDS ORDERED: ONDANSETRON HCL 4 MG/2 ML VIAL IV PUSH ONE (19:45)
[2016-10-06 19:47] VITALS: BP 91/54; PULSE 86; RESP 16; O2SAT 98
[2016-10-06 19:47] LABS: APTT (PATIENT) 24.3 SEC (24.3-30.1); PROTHROMBIN TIME - PATIENT 11.4 SEC (9.8-11.6)
[2016-10-06 19:51] LABS: OVALOCYTES 1+ (NORMAL); PLATELET ESTIMATE SMEAR NORMAL (NORMAL); PLATELET MORPHOLOGY NORMAL (NORMAL); SCAN/DIFF AUTO DIFF CONFIRMED
--- NOTE | 2016-10-06 19:57 | RADRPT ---
EXAM DATE/TIME: 10/06/2016 19:08 [facility] COMPARISON: CHEST SINGLE AP, September 19, 2016, 17:14. INDICATIONS : Nausea and abdominal pain. MEDICAL HISTORY : Hypertension. Chronic obstructive pulmonary disease. Diabetes mellitus type II. SURGICAL HISTORY : Coronary artery stent. ENCOUNTER: Initial ACUITY: 1 day PAIN SCORE: 6/10 LOCATION: Bilateral Abdomen FINDINGS: A single view of the chest demonstrates linear scarring or atelectasis at the lung bases. Elevated ri ght hemidiaphragm. No effusion. No pneumothorax. Heart size upper limits normal. Atherosclerotic aort a. CONCLUSION: 1. Minimal basilar scarring or atelectasis. No effusion or pneumothorax. Elevated right hemidiaphragm . Jonny Martin MD on October 06, 2016 at 19:52 Board Certified Radiologist. This report was verified electronically.
[2016-10-06] MEDS ORDERED: BUME2TAB PO (20:00)
[2016-10-06] MEDS ORDERED: AMIT75TA2 PO (20:00)
[2016-10-06 20:02] LABS: BACTERIA, URINE RARE /hpf; BLOOD, URINE NEG (NEG); GLUCOSE,URINE NEG (NEG); HYALINE CAST, URINE 7 /lpf (RARE); KETONE, URINE NEG (NEG); NITRITE,URINE NEG (NEG); PH, URINE 5.5 (5.0-8.5); SQUAMOUS EPITHELIAL CELL URINE <1 /hpf (0-5); URINE COLOR YELLOW (YELLW/STRAW)
[2016-10-06 20:03] LABS: COMMENT (UR) CATH-CULTURE IND; CULTURE IF INDICATED CATH CULTURE IND
[2016-10-06 20:08] LABS: ALKALINE PHOSPHATASE 70 U/L (45-117); ALT (GPT) 18 U/L (10-53); ANION GAP 13 MEQ/L (5-15); AST (GOT) 34 U/L (15-37); BICARBONATE 25.8 MEQ/L (21.0-32.0); BLOOD UREA NITROGEN 41 MG/DL (7-18); CHLORIDE 95 MEQ/L (98-107); GLOMERULAR FILTRATION RATE 31 ML/MIN (>89); MAGNESIUM 1.8 MG/DL (1.5-2.5); POTASSIUM 4.7 MEQ/L (3.5-5.1); SODIUM (NA) 134 MEQ/L (136-145); TOTAL BILIRUBIN ADULT 0.5 MG/DL (0.2-1.0)
[2016-10-06 20:09] LABS: CREATINE KINASE 59 U/L (26-192)
--- NOTE | 2016-10-06 20:44 | PD ---
HPI Chief Complaint: GI Complaint Time Seen by Provider: 19:05 Travel History International Travel<30 days: No Contact w/Intl Traveler<30days: No Traveled to known affect area: No History of Present Illness HPI Patient is an 86-year-old female who returns to emergency room with complaints of not feeling well. Patient reports that she has been feeling increasingly weak over the past few days, reports that she has been feeling nauseous and has been vomiting, overall decreased urine output. She reports that when she urinates, she has increased burning with urination. Patient reports that overall, she doesn't feel well and reports that she "thinks that she has a uti. " Patient reports that she was recently admitted to the hospital for sepsis secondary to uti. Patient was recently admitted on Sep 19 for urosepsis and then discharged on September 25 and was sent home on Cipro for a Klebsiella UTI. PFSH Past Medical History Hx Anticoagulant Therapy: Yes (81MG ASA) Arthritis: Yes Asthma: Yes Atrial Fibrillation: Yes Autoimmune Disease: No Blood Disorders: No Anxiety: No Depression: No Heart Rhythm Problems: Yes Cancer: No Cardiac Catheterization: Yes (X 4 STENTS) Cardiovascular Problems: Yes High Cholesterol: Yes Chemotherapy: No Chest Pain: Yes Congestive Heart Failure: Yes COPD: Yes Cerebrovascular Accident: No Coronary Artery Disease: Yes Diabetes: Yes Patient Takes Glucophage: No Diminished Hearing: Yes (SELDOVIA R EAR) Endocrine: No Gastrointestinal Disorders: Yes (IBS) GERD: No Glaucoma: No Genitourinary: No Headaches: Yes (WHEN BLOOD SUGAR GETS HIGH) Hepatitis: No Hiatal Hernia: Yes Heparin Induced Thrombocytopen: No Hypertension: Yes Immune Disorder: No Inguinal Hernia: No Implanted Vascular Access Dvce: Yes Kidney Stones: No Musculoskeletal: Yes Neurologic: No Psychiatric: No Reproductive: No Respiratory: Yes Integumentary: Yes Immunizations Current: Yes Migraines: No Myocardial Infarction: No Pneumonia: Yes Radiation Therapy: No Renal Failure: No Seizures: No Sickle Cell Disease: No Sleep Apnea: No Thyroid Disease: No Ulcer: No PNEUMOCCOCAL Vaccine (Year): 1 Menopausal: Yes : 4 Para: 4 Miscarriage: 0 : 0 Past Surgical History Abdominal Surgery: Yes (gallbladder) AICD: No Appendectomy: No Arteriovenous Shunt: No Body Medical Devices: STENTS x 4 cardiac Cardiac Surgery: Yes (4 stents over 10 years) Cholecystectomy: Yes Coronary Artery Bypass Graft: No Coronary Stent: Yes (2005 & 2006) Ear Surgery: No Endocrine Surgery: No Eye Surgery: No Genitourinary Surgery: No Gynecologic Surgery: No Hysterectomy: Yes Insulin Pump: No Joint Replacement: No Neurologic Surgery: No Oral Surgery: Yes (teeth) Pacemaker: No Thoracic Surgery: No Other Surgery: Yes (GALLSTONES; R LEG AMPUTATED) Family History Family Myocardial Infarction: Yes (father of pardo) Social History Alcohol Use: No Tobacco Use: No Substance Use: No Allergies-Medications (Allergen,Severity, Reaction): Coded Allergies: Digoxin (Verified Allergy, Severe, BLURRY VISION, 09/19/16) Oxycodone (Verified Allergy, Severe, Anaphylaxis, 09/19/16) Ativan (Verified Adverse Reaction, Severe, "makes me crazy", 09/19/16) Codeine (Verified Adverse Reaction, Severe, "makes me crazy", 09/19/16) Reported Meds & Prescriptions Reported Meds & Active Scripts Active Diltiazem CD 24 HR 180 Mg Caper 180 Mg PO DAILY Glucophage (Metformin HCl) 500 Mg Tab 500 Mg PO BIDPC Amiodarone (Amiodarone HCl) 200 Mg Tab 400 Mg PO DAILY Novolin 70-30 Inj (Insulin Human Isoph/Insulin Regular) 1,000 Unit/10 Ml Vial 18 Units SQ BID@, Lopressor (Metoprolol Tartrate) 100 Mg Tab 100 Mg PO BID Reported Amitriptyline (Amitriptyline HCl) 75 Mg Tab 75 Mg PO ONCE Bumetanide 2 Mg Tab 2 Mg PO DAILY Aspirin 81 Mg Tabdr 81 Mg PO DAILY Allopurinol 100 Mg Tab 100 Mg PO DAILY Atorvastatin (Atorvastatin Calcium) 10 Mg Tab 10 Mg PO HS Atrovent HFA 12.9 GM Inh (Ipratropium [place]) 17 Mcg/Act Aer 1 Puff INH DIRECTED PRN Isosorbide Mononitrate ER (Isosorbide Mononitrate) 30 Mg Alejandro 30 Mg PO DAILY Review of Systems General / Constitutional: Positive: Fever Eyes: No: Visual changes HENT: No: Headaches Cardiovascular: No: Chest Pain or Discomfort Respiratory: No: Shortness of Breath Gastrointestinal: Positive: Nausea, Vomiting, Diarrhea, Other ("Kidney pain"), No: Abdominal Pain Genitourinary: Positive: Urgency, Frequency, Dysuria, Flank Pain Musculoskeletal: No: Pain Skin: No Rash Neurologic: No: Weakness Psychiatric: No: Depression Endocrine: No: Polydipsia Hematologic/Lymphatic: No: Easy Bruising Physical Exam Narrative GENERAL: Moderate distress SKIN: Warm and dry. HEAD: Atraumatic. Normocephalic. EYES: Pupils equal and round. No scleral icterus. No injection or drainage. ENT: No nasal bleeding or discharge. Mucous membranes pink and moist. NECK: Trachea midline. No JVD. CARDIOVASCULAR: Regular rate and rhythm. No murmur appreciated. RESPIRATORY: No accessory muscle use. Clear to auscultation. Breath sounds equal bilaterally. GASTROINTESTINAL: Abdomen soft, non-tender, nondistended. Hepatic and splenic margins not palpable. Flank pain b/l MUSCULOSKELETAL: No obvious deformities. No clubbing. No cyanosis. No edema. NEUROLOGICAL: Awake and alert. No obvious cranial nerve deficits. Motor grossly within normal limits. Normal speech. PSYCHIATRIC: Appropriate mood and affect; insight and judgment normal. Data Data Last Documented VS Vital Signs Date Time Temp Pulse Resp B/P Pulse Ox O2 Delivery O2 Flow Rate FiO2 10/06/16 19:47 86 16 91/54 98 Room Air 10/06/16 18:56 97.7 Orders Electrocardiogram (10/06/16 19:09) Complete Blood Count With Diff (10/06/16 19:09) Comprehensive Metabolic Panel (10/06/16 19:09) Prothrombin Time / Inr (Pt) (10/06/16 19:09) Act Partial Throm Time (Ptt) (10/06/16 19:09) Lactic Acid Sepsis Protocol (10/06/16 19:09) Magnesium (Mg) (10/06/16 19:09) Lipase (10/06/16 19:09) Urinalysis - C+S If Indicated (10/06/16 19:09) Blood Culture (10/06/16 19:09) Chest, Single Ap (10/06/16 19:09) Sodium Chlor 0.9% 1000 Ml Inj (Ns 1000 M (10/06/16 19:15) ^ Straight Catheter (10/06/16 19:09) Ckmb (Isoenzyme) Profile (10/06/16 19:11) Troponin I (10/06/16 19:11) Ondansetron Inj (Zofran Inj) (10/06/16 19:45) Urine Culture (10/06/16 19:30) Ceftriaxone Inj (Rocephin Inj) (10/06/16 20:45) Labs Laboratory Tests Test 10/06/16 10/06/16 10/06/16 02:36 19:15 19:30 White Blood Count 12.5 TH/MM3 Red Blood Count 4.03 MIL/MM3 Hemoglobin 9.2 GM/DL Hematocrit 30.9 % Mean Corpuscular Volume 76.6 FL Mean Corpuscular Hemoglobin 22.9 PG Mean Corpuscular Hemoglobin 29.9 % Concent Red Cell Distribution Width 17.8 % Platelet Count 286 TH/MM3 Mean Platelet Volume 8.7 FL Neutrophils (%) (Auto) 89.4 % Lymphocytes (%) (Auto) 6.3 % Monocytes (%) (Auto) 3.3 % Eosinophils (%) (Auto) 0.6 % Basophils (%) (Auto) 0.4 % Neutrophils # (Auto) 11.2 TH/MM3 Lymphocytes # (Auto) 0.8 TH/MM3 Monocytes # (Auto) 0.4 TH/MM3 Eosinophils # (Auto) 0.1 TH/MM3 Basophils # (Auto) 0.0 TH/MM3 CBC Comment AUTO DIFF Differential Comment AUTO DIFF CONFIRMED Platelet Estimate NORMAL Platelet Morphology Comment NORMAL Ovalocytes 1+ Total Creatine Kinase 59 U/L Troponin I LESS THAN 0.02 NG/ML Prothrombin Time 11.4 SEC Prothromb Time International 1.0 RATIO Ratio Activated Partial 24.3 SEC Thromboplast Time Sodium Level 134 MEQ/L Potassium Level 4.7 MEQ/L Chloride Level 95 MEQ/L Carbon Dioxide Level 25.8 MEQ/L Anion Gap 13 MEQ/L Blood Urea Nitrogen 41 MG/DL Creatinine 1.57 MG/DL Estimat Glomerular Filtration 31 ML/MIN Rate Random Glucose 211 MG/DL Calcium Level 9.2 MG/DL Magnesium Level 1.8 MG/DL Total Bilirubin 0.5 MG/DL Aspartate Amino Transf 34 U/L (AST/SGOT) Alanine Aminotransferase 18 U/L (ALT/SGPT) Alkaline Phosphatase 70 U/L Total Protein 6.4 GM/DL Albumin 2.6 GM/DL Lipase 98 U/L Urine Color YELLOW Urine Turbidity HAZY Urine pH 5.5 Urine Specific Olive 1.016 Urine Protein NEG mg/dL Urine Glucose (UA) NEG mg/dL Urine Ketones NEG mg/dL Urine Occult Blood NEG Urine Nitrite NEG Urine Bilirubin NEG Urine Urobilinogen LESS THAN 2.0 MG/DL Urine Leukocyte Esterase LARGE Urine RBC 1 /hpf Urine WBC 43 /hpf Urine WBC Clumps MOD Urine Squamous Epithelial <1 /hpf Cells Urine Bacteria RARE /hpf Urine Hyaline Casts 7 /lpf Urine Yeast (Budding) FEW Microscopic Urinalysis Comment CATH-CULTURE IND Lactic Acid Level 2.8 mmol/L MDM Medical Decision Making Medical Screen Exam Complete: Yes Emergency Medical Condition: Yes Interpretation(s) Vital Signs Date Time Temp Pulse Resp B/P Pulse Ox O2 Delivery O2 Flow Rate FiO2 10/06/16 19:47 86 16 91/54 98 Room Air 10/06/16 18:56 97.7 79 20 91/52 99 Room Air 10/06/16 18:53 97.7 90 20 91/52 99 CBC & BMP Diagram 10/06/16 02:36 10/06/16 19:15 Differential Diagnosis urosepsis, renal insuffiency, bacteremia, sepsis, electrolyte abnormality Narrative Course Patient is a 86-year-old female who was recently admitted to the hospital for urosepsis and was discharged on September 25, 2016 on ciprofloxacin, returns to emergency room with complaints of urinary urgency, frequency and dysuria with decreased urine output. She reports that she has been feeling weak, reports that she has had overall decreased oral intake for the past few days. Patient reports that she has not been making much urine. She concerned that she may have a UTI. Previous records were reviewed. Patient was recently admitted to the hospital and discharged with the urosepsis secondary to Klebsiella pneumonia a which is sensitive to Rocephin. Labs as well urine and lactate ordered. Patient does have an elevated white count at 12.5 with shift, patient lactate is 2.8, creatinine is 1.57, BUN is 41, UA with large leuk esterase and moderate white blood cell clumps. Patient most likely with sepsis secondary to urinary tract infection. She was covered with Rocephin antibiotic for her infection. Case reviewed with Dr. Forde who accepts patient to service. Physician Communication Physician Communication case discussed with dr forde who accepts pt to service Diagnosis Primary Impression: Sepsis secondary to UTI Additional Impressions: Renal insufficiency Anemia Admitting Information Admitting Physician Requests: Admit Rere Braswell DO Oct 06, 2016 20:44
[2016-10-06] MEDS ORDERED: cefTRIAXone INJ 1,000 MG in SODIUM CHLORIDE 0.9% INJ 100 ML IV ONE (20:45)
[2016-10-06] MEDS ORDERED: GLUCAGON 1 MG/ML VIAL OTHER PRN (21:15)
[2016-10-06] MEDS ORDERED: NALOXONE HCL 0.4 MG/ML AMP IV PRN (21:15)
[2016-10-06] MEDS ORDERED: SODIUM CHLORIDE 0.9% FLUSH 5 ML FLUSH FLUSH PRN (21:15)
[2016-10-06 21:43] LABS: LACTIC ACID GHOST NOT REPORTABLE
[2016-10-06 21:54] VITALS: BP 101/56; PULSE 81; RESP 14; O2SAT 98
[2016-10-06 23:30] VITALS: BP 125/60; PULSE 87; RESP 20; TEMP 96; O2SAT 98
--- NOTE | 2016-10-06 23:38 | HHI.HP ---
[facility] Primary Care Physician Lon Kothari MD Admission Diagnosis Sepsis secondary to UTI Diagnoses: Chief Complaint: Generalized weakness, nausea, vomiting, constipation Travel History International Travel<30 Days: No Contact w/Intl Traveler <30 Da: No Traveled to Known Affected Are: No History of Present Illness History the patient, ER physician communication, and review of medical records. Patient reported that she came to the hospital because she has been extremely weak. She also reports that she is so nauseous and has been vomiting about 3 or 4 times a day for the past 3 days or so. Denies fever. Denies abdominal pain initially. However is quite tender on examination. Denies any diarrhea. She stated that she is in fact constipated and has not moved her bowels for the past 3 or 4 days. She is unsure whether she is still passing gas. Denies any hematemesis/hematochezia/melena. Patient also reports of urinary burning and pain on urination. However stated that it is not as bad as what it used to be. On review of medical records, patient recently had a klebsiella UTI. She reports that she completed her antibiotics course about 2 days ago. Patient denies any chest pain/palpitations/shortness of breath/focal weakness. Denies any dizziness/syncopal episodes. She states that she is wheelchair bound for the past 13 years or so. 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 She stated that she uses her prosthesis only while she is sitting on the wheelchair so that it doesn't look like she only has one leg. She lives at home with her family members and reports she gets a lot of help from the family members. She lives with her granddaughter, granddaughter's , teenage son. Review of Systems 12 point review of systems obtained and negative apart from what is mentioned in HPI Past Family Social History Past Medical History Hypertension Diabetes Coronary artery disease Atrial fibrillation Right BKAfor diabetic foot infection COPD Past Surgical History Cholecystectomy Coronary angiogram and stenting Reported Medications Patient's medications assessed on EMRreviewed. There was a list of her home medications in her chart from family members. Allergies: Coded Allergies: Digoxin (Verified Allergy, Severe, BLURRY VISION, 09/19/16) Oxycodone (Verified Allergy, Severe, Anaphylaxis, 09/19/16) Ativan (Verified Adverse Reaction, Severe, "makes me crazy", 09/19/16) Codeine (Verified Adverse Reaction, Severe, "makes me crazy", 09/19/16) Social History States she only smokes about 2 or 3 cigarettes a day now. She is almost quitting. Denies any alcohol abuse or drug abuse. Physical Exam Vital Signs Vital Signs Date Time Temp Pulse Resp B/P Pulse Ox O2 Delivery O2 Flow Rate FiO2 10/06/16 21:54 81 14 101/56 98 Room Air 10/06/16 19:47 86 16 91/54 98 Room Air 10/06/16 18:56 97.7 79 20 91/52 99 Room Air 10/06/16 18:53 97.7 90 20 91/52 99 Physical Exam GENERAL: This is a elderly lady, looks quite pale, looks to be chronically ill and in discomfort, in no acute apparent distress. SKIN: Superficial ecchymosis. HEAD: Atraumatic. Normocephalic. No temporal or scalp tenderness. EYES: Pupils equal round and reactive. Extraocular motions intact. No scleral icterus. No injection or drainage. ENT: Nose without bleeding, purulent drainage or septal hematoma. Airway patent. NECK: Trachea midline. No JVD CARDIOVASCULAR: Regular rate and rhythm without murmurs, gallops, or rubs. RESPIRATORY: Clear to auscultation. Breath sounds equal bilaterally. No wheezes , rales, or rhonchi. GASTROINTESTINAL: Abdomen soft, non-tender, nondistended. No guarding. MUSCULOSKELETAL: Extremities without clubbing, cyanosis, or edema. . No calf tenderness. NEUROLOGICAL: Awake and alert. Motor and sensory grossly within normal limits.Normal speech. Laboratory Laboratory Tests Test 10/06/16 10/06/16 10/06/16 10/06/16 02:36 19:15 19:30 22:20 White Blood Count 12.5 Red Blood Count 4.03 Hemoglobin 9.2 Hematocrit 30.9 Mean Corpuscular Volume 76.6 Mean Corpuscular Hemoglobin 22.9 Mean Corpuscular Hemoglobin 29.9 Concent Red Cell Distribution Width 17.8 Platelet Count 286 Mean Platelet Volume 8.7 Neutrophils (%) (Auto) 89.4 Lymphocytes (%) (Auto) 6.3 Monocytes (%) (Auto) 3.3 Eosinophils (%) (Auto) 0.6 Basophils (%) (Auto) 0.4 Neutrophils # (Auto) 11.2 Lymphocytes # (Auto) 0.8 Monocytes # (Auto) 0.4 Eosinophils # (Auto) 0.1 Basophils # (Auto) 0.0 CBC Comment AUTO DIFF Differential Comment AUTO DIFF CONFIRMED Platelet Estimate NORMAL Platelet Morphology Comment NORMAL Ovalocytes 1+ Total Creatine Kinase 59 Troponin I LESS THAN 0.02 Prothrombin Time 11.4 Prothromb Time International 1.0 Ratio Activated Partial 24.3 Thromboplast Time Sodium Level 134 Potassium Level 4.7 Chloride Level 95 Carbon Dioxide Level 25.8 Anion Gap 13 Blood Urea Nitrogen 41 Creatinine 1.57 Estimat Glomerular Filtration 31 Rate Random Glucose 211 Calcium Level 9.2 Magnesium Level 1.8 Total Bilirubin 0.5 Aspartate Amino Transf 34 (AST/SGOT) Alanine Aminotransferase 18 (ALT/SGPT) Alkaline Phosphatase 70 Total Protein 6.4 Albumin 2.6 Lipase 98 Urine Color YELLOW Urine Turbidity HAZY Urine pH 5.5 Urine Specific [place] 1.016 Urine Protein NEG Urine Glucose (UA) NEG Urine Ketones NEG Urine Occult Blood NEG Urine Nitrite NEG Urine Bilirubin NEG Urine Urobilinogen LESS THAN 2.0 Urine Leukocyte Esterase LARGE Urine RBC 1 Urine WBC 43 Urine WBC Clumps MOD Urine Squamous Epithelial <1 Cells Urine Bacteria RARE Urine Hyaline Casts 7 Urine Yeast (Budding) FEW Microscopic Urinalysis Comment CATH-CULTURE IND Lactic Acid Level 2.8 3.0 Date/Time Procedure Status Source Growth 10/06/16 19:30 Urine Culture Received Urine Catheterized Urine Pending 10/06/16 19:30 Aerobic Blood Culture Received Blood Peripheral Pending 10/06/16 19:30 Anaerobic Blood Culture Received Blood Peripheral Pending Result Diagram: 10/06/166 10/06/161914 Imaging Vital Signs Date Time Temp Pulse Resp B/P Pulse Ox O2 Delivery O2 Flow Rate FiO2 10/06/16 23:30 96.0 87 20 125/60 98 10/06/16 21:54 81 14 101/56 98 Room Air 10/06/16 19:47 86 16 91/54 98 Room Air 2/19/17 18:56 97.7 79 20 91/52 99 Room Air 10/06/16 18:53 97.7 90 20 91/52 99 Assessment and Plan Assessment and Plan Impression: UTI Lactic acid acidosis Nausea/vomiting/abdominal painrule out intra-abdominal etiology. rule out obstruction Plan: We'll continue Rocephin per patient's previous urine culture is sensitive to it. Nausea control with Zofran 4 mg IV every 6 hours when necessary. Also add on Phenergan 12.5 mg IM every 4 hours when necessary. If there is episode of diarrhea, we will send for cultures. However suspects that this is more of constipation at this point. Stool for C. difficile. Patient is on antibiotics. Nausea and vomiting is somewhat concerning. We'll obtain CT abdomen and pelvis without IV contrast. resume rest of her home meds PT eval case management for dc planning DVT prophylaxis with lovenox Discussed Condition With Patient, ER physician, patient's nurse Physician Certification 2 Midnight Certification Type: Admission for Inpatient Services Order for Inpatient Services The services are ordered in accordance with Medicare regulations or non- Medicare payer requirements, as applicable. In the case of services not specified as inpatient-only, they are appropriately provided as inpatient services in accordance with the 2-midnight benchmark. Estimated LOS (days): 2 days is the estimated time the patient will need to remain in the hospital, assuming treatment plan goals are met and no additional complications. Post-Hospital Plan: Dallas Montes MD Oct 06, 2016 23:38
[2016-10-06] MEDS: ONDANSETRON HCL 4 MG/2 ML VIAL IVP PRN (23:48)
[2016-10-07] VITALS (8 sets, daily range): BP systolic 52–121; BP diastolic 41–58; PULSE 86–143; RESP 17–22; TEMP 95.8–99.2; O2SAT 95–99
[2016-10-07] MEDS: KETOROLAC TROMETHAMINE 30 MG/ML (IVP) VIAL IV PUSH PRN ×3 (00:40→11:00)
[2016-10-07] MEDS: PROMETHAZINE INJ 25 MG/ML VIAL IM PRN ×2 (00:41→06:22)
--- NOTE | 2016-10-07 02:53 | RADRPT ---
EXAM DATE/TIME: 10/07/2016 01:50 [facility] COMPARISON: CT ABDOMEN & PELVIS W/O CONTRAST, February 21, 2016, 16:05. INDICATIONS : Abdominal pain, nausea and vomiting. ORAL CONTRAST: No oral contrast ingested. RADIATION DOSE: 8.59 CTDIvol (mGy) MEDICAL HISTORY : Chronic obstructive pulmonary disease. Congestive heart failure. Hypertension. SURGICAL HISTORY : Hysterectomy. Right BKA ENCOUNTER: Initial ACUITY: 3 days PAIN SCALE: 0/10 LOCATION: abdomen TECHNIQUE: Volumetric scanning of the abdomen and pelvis was performed. Using automated exposure control and ad justment of the mA and/or kV according to patient size, radiation dose was kept as low as reasonably achievable to obtain optimal diagnostic quality images. FINDINGS: LOWER LUNGS: The visualized lower lungs are clear. LIVER: Homogeneous density without lesion. There is no dilation of the biliary tree. No calcified gallston es. SPLEEN: Normal size without lesion. PANCREAS: Within normal limits. KIDNEYS: There are small calcifications in the upper right collecting system likely related to nonobstructing stones. No hydronephrosis is seen. ADRENAL GLANDS: There is a 2.2 cm mass in the left adrenal gland measuring -10 Hounsfield units consistent with an ad enoma. VASCULAR: There is no aortic aneurysm. Atherosclerotic calcifications are seen throughout the arterial system. BOWEL/MESENTERY: There is a large amount stool throughout the colon especially the transverse colon. The transverse co heaven measures up to 8.5 cm in diameter. There is a mild hiatal hernia.ABDOMINAL WALL: There is a hernia to the left of midline with the defect measuring 3.2 cm. This contains only mesente nancy fat. RETROPERITONEUM: There is no lymphadenopathy. BLADDER: No wall thickening or mass. REPRODUCTIVE: Within normal limits. INGUINAL: There is no lymphadenopathy or hernia. MUSCULOSKELETAL: Within normal limits for patient age. CONCLUSION: 1. Large amount stool in the colon especially the transverse colon. 2. Left adrenal gland adenoma. 3. Possible mild straightening right renal stones. 4. Anterior abdominal wall hernia the level of the umbilicus just the left of midline containing only mesenteric fat. Kurt Trujillo MD on October 07, 2016 at 2:46 Board Certified Radiologist. This report was verified electronically.
[2016-10-07] MEDS: INSULIN ASPART SUPPLEMENTAL SCALE SQ SCH ×4 (06:22→22:35)
[2016-10-07] MEDS: ISOSORBIDE MONONITRATE 30 MG TAB PO SCH ×2 (06:22→08:58)
[2016-10-07] MEDS ORDERED: MAGNESIUM HYDROXIDE SUSP 30 ML CUP PO PRN (07:45)
[2016-10-07 08:01] LABS: HEMATOCRIT 31.7 % (35.0-46.0); MEAN CELL VOLUME 78.2 FL (80.0-100.0); MEAN CORPUSCULAR HEMOGLOBIN 22.7 PG (27.0-34.0); PLATELET COUNT 274 TH/MM3 (150-450); RED BLOOD COUNT 4.05 MIL/MM3 (4.00-5.30); RED CELL DISTRIBUTION WIDTH 18.3 % (11.6-17.2); WHITE BLOOD COUNT 20.5 TH/MM3 (4.0-11.0)
[2016-10-07 08:03] LABS: HEMO FLAGS AUTO DIFF
[2016-10-07 08:21] LABS: BICARBONATE 20.4 MEQ/L (21.0-32.0); POTASSIUM 5.1 MEQ/L (3.5-5.1)
[2016-10-07 08:49] LABS: BANDS 10 % (0-6); NEUTROPHIL # MANUAL DIFF 19.7 TH/MM3 (1.8-7.7); POLYS (SEG NEUTROPHILS) 86 % (16-70); WBC DIFF SAMPLE 100
[2016-10-07 08:51] LABS: OVALOCYTES 1+ (NORMAL); PLATELET ESTIMATE SMEAR NORMAL (NORMAL); PLATELET MORPHOLOGY NORMAL (NORMAL); SCAN/DIFF FINAL DIFF MANUAL
[2016-10-07] MEDS: ASPIRIN EC 81 MG TABEC PO SCH (08:58)
[2016-10-07] MEDS: DOCUSATE SODIUM 100 MG CAP PO SCH ×3 (08:58→18:00)
[2016-10-07] MEDS: AMIODARONE 200 MG TAB PO SCH (08:58)
[2016-10-07] MEDS: ALLOPURINOL 100 MG TAB PO SCH (09:00)
[2016-10-07] MEDS: SODIUM CHLORIDE 0.9% FLUSH 5 ML FLUSH FLUSH SCH ×2 (09:00→22:35)
[2016-10-07] MEDS ORDERED: ENOXAPARIN SODIUM 40 MG/0.4 ML SYRINGE SQ SCH (09:00)
[2016-10-07] MEDS: METOPROLOL TARTRATE 100 MG TAB PO SCH ×2 (09:00→22:36)
[2016-10-07] MEDS: DILTIAZEM-CD 180 MG CAP ER PO SCH (09:01)
[2016-10-07] MEDS: ONDANSETRON HCL 4 MG/2 ML VIAL IVP PRN (09:26)
[2016-10-07] MEDS: SODIUM CHLOR 0.9% 1000 ML INJ 1,000 ML IV SCH ×2 (12:00→22:37)
--- NOTE | 2016-10-07 12:14 | HHI.PR ---
Subjective Remarks Patient seen in follow-up for sepsis secondary to UTI. She complains of persistent, mild abdominal cramps. No bowel movements yet. Some nausea but no vomiting. Afebrile. Objective Vitals Vital Signs Date Time Temp Pulse Resp B/P Pulse Ox O2 Delivery O2 Flow Rate FiO2 10/07/16 08:00 96.0 89 17 114/55 99 10/07/16 04:00 95.8 91 22 100/41 99 10/07/16 01:40 18 10/06/16 23:30 96.0 87 20 125/60 98 10/06/16 23:30 96.0 87 20 125/60 98 10/06/16 21:54 81 14 101/56 98 Room Air 10/06/16 19:47 86 16 91/54 98 Room Air 10/06/16 18:56 97.7 79 20 91/52 99 Room Air 10/06/16 18:53 97.7 90 20 91/52 99 I/O 10/06/16 10/06/16 10/06/16 10/07/16 10/07/16 10/07/16 07:00 15:00 23:00 07:00 15:00 23:00 Intake Total 120 ml Balance 120 ml Intake Oral 120 ml # Voids 3 # Bowel Movements 0 Result Diagram: 10/07/1625 10/07/16 0725 Imaging Last Impressions Abdomen/Pelvis CT 10/07/16 0000 Signed Impressions: Service Date/Time: Friday, October 07, 2016 01:50 - CONCLUSION: 1. Large amount stool in the colon especially the transverse colon. 2. Left adrenal gland adenoma. 3. Possible mild straightening right renal stones. 4. Anterior abdominal wall hernia the level of the umbilicus just the left of midline containing only mesenteric fat. Kurt Trujillo MD Chest X-Ray 10/06/161908 Signed Impressions: Service Date/Time: Thursday, October 06, 2016 19:08 - CONCLUSION: 1. Minimal basilar scarring or atelectasis. No effusion or pneumothorax. Elevated right hemidiaphragm. Jonny Martin MD Objective Remarks GENERAL: This is a well-nourished, well-developed patient, in no apparent distress. CARDIOVASCULAR: Regular rate and rhythm without murmurs, gallops, or rubs. RESPIRATORY: Clear to auscultation. Breath sounds equal bilaterally. No wheezes , rales, or rhonchi. GASTROINTESTINAL: Abdomen soft, nondistended, diffusely tender to palpation. No guarding. Normal bowel sounds. MUSCULOSKELETAL: Extremities without clubbing, cyanosis, or edema. Right AKA. NEUROLOGICAL: Awake and alert. No focal neuro deficit. Normal speech. A/P Assessment and Plan 86-year-old female with: Sepsis: secondary to UTI. This is a recurrent UTI for the patient. She was discharged from the hospital about a week ago and completed treatment with antibiotics. Continue Rocephin. Follow urine and blood cultures. Bladder scan. Retention may be contributing to recurrent UTI. Abdominal pain/constipation: Give a dose of Lactulose and monitor for response. If no response, would try Mag citrate. A-fib: rate variable - Continue amiodarone, Lopressor and Cardizem. DM: Uncontrolled. - HA1C 12.6 -Patient on 70/30 twice a day. Insulin sliding scale. Levemir 15 units twice a day. CHF: Echo 04/06/16 w/ EF 55-60%, CXR w/ no acute findings, No evidence of acute CHF. - Continue isosorbide, diltiazem, ASA. GI prophylaxis: Stool softener PRN constipation. DVT PPx: Mateo Eid MD Oct 07, 2016 12:14
[2016-10-07] MEDS ORDERED: LACTULOSE SYRUP 20 GM/30 ML CUP PO ONE (12:15)
--- NOTE | 2016-10-07 14:27 | EKG ---
Date Performed: 10/06/2016 Time Performed: 19:40:31 PTAGE: 86 years EKG: ATRIAL FIBRILLATION POSSIBLE ANTERIOR MYOCARDIAL INFARCTION INFERIOR MYOCARDIAL INFARCTION ABNORMAL ECG PREVIOUS TRACING : 09/24/2016 05.50 DOCTOR: Alfredito Jimenes Interpretating Date/Time 10/07/2016 14:23:49
[2016-10-07 21:06] LABS: MEAN CORPUSCULAR HGB CONC 28.3 % (32.0-36.0)
[2016-10-07] MEDS: INSULIN DETEMIR 100 UNITS/ML VIAL SQ SCH (22:35)
[2016-10-07] MEDS: ATORVASTATIN 10 MG TAB PO SCH (22:36)
[2016-10-07] MEDS ORDERED: MINERAL OIL ENEMA 118 ML BTL RECTAL ONE (23:45)
[2016-10-08] VITALS (20 sets, daily range): BP systolic 96–129; BP diastolic 49–59; PULSE 86–116; RESP 16–21; TEMP 97.5–98.7; O2SAT 95–96
[2016-10-08] MEDS: KETOROLAC TROMETHAMINE 30 MG/ML (IVP) VIAL IV PUSH PRN ×3 (01:24→17:53)
[2016-10-08] MEDS: INSULIN ASPART SUPPLEMENTAL SCALE SQ SCH ×4 (05:46→21:00)
[2016-10-08 08:30] LABS: HEMATOCRIT 32.4 % (35.0-46.0); MEAN CELL VOLUME 81.3 FL (80.0-100.0); PLATELET COUNT 259 TH/MM3 (150-450); RED BLOOD COUNT 3.99 MIL/MM3 (4.00-5.30); RED CELL DISTRIBUTION WIDTH 18.9 % (11.6-17.2); REVIEW FLAG FINAL; WHITE BLOOD COUNT 15.5 TH/MM3 (4.0-11.0)
[2016-10-08] MEDS: ONDANSETRON HCL 4 MG/2 ML VIAL IVP PRN ×2 (08:34→17:51)
[2016-10-08] MEDS: SODIUM CHLORIDE 0.9% FLUSH 5 ML FLUSH FLUSH SCH ×2 (08:38→22:38)
[2016-10-08 08:44] LABS: BICARBONATE 23.1 MEQ/L (21.0-32.0); POTASSIUM 4.2 MEQ/L (3.5-5.1)
[2016-10-08] MEDS: DOCUSATE SODIUM 100 MG CAP PO SCH ×3 (09:59→17:36)
[2016-10-08] MEDS: ASPIRIN EC 81 MG TABEC PO SCH (09:59)
[2016-10-08] MEDS: INSULIN DETEMIR 100 UNITS/ML VIAL SQ SCH ×2 (09:59→21:00)
[2016-10-08] MEDS: METOPROLOL TARTRATE 100 MG TAB PO SCH ×2 (09:59→22:38)
[2016-10-08] MEDS: ALLOPURINOL 100 MG TAB PO SCH (09:59)
[2016-10-08] MEDS: ENOXAPARIN SODIUM 30 MG/0.3 ML SYRINGE SQ SCH (09:59)
[2016-10-08] MEDS: DILTIAZEM-CD 180 MG CAP ER PO SCH (09:59)
[2016-10-08] MEDS: AMIODARONE 200 MG TAB PO SCH (09:59)
--- NOTE | 2016-10-08 10:11 | HHI.PR ---
Subjective Remarks Patient reports that she continues to have abdominal pain, some mild nausea. No response to milk of magnesia, lactulose, or enema. She reports that she does not really remember ever having a colonoscopy or at least not in the past 15 years. Objective Vitals Vital Signs Date Time Temp Pulse Resp B/P Pulse Ox O2 Delivery O2 Flow Rate FiO2 10/08/16 10:07 109 10/08/16 09:35 103 10/08/16 08:22 107 10/08/16 07:54 98.7 86 16 110/49 96 10/08/16 07:46 94 10/07/16 23:51 98.1 143 17 104/56 97 10/07/16 21:05 97.2 130 17 100/52 95 10/07/16 20:00 119 10/07/16 16:00 99.2 96 19 121/58 95 10/07/16 12:00 97.4 96 20 120/58 96 I/O 10/07/16 10/07/16 10/07/16 10/08/16 10/08/16 10/08/16 07:00 15:00 23:00 07:00 15:00 23:00 Intake Total 120 ml 300 ml 120 ml Balance 120 ml 300 ml 120 ml Intake Oral 120 ml 300 ml 120 ml # Voids 3 1 # Bowel Movements 0 Result Diagram: 10/08/16 0810/08/16 08 Objective Remarks GENERAL: This is a well-nourished, well-developed patient, in no apparent distress. CARDIOVASCULAR: Regular rate and rhythm without murmurs, gallops, or rubs. RESPIRATORY: Clear to auscultation. Breath sounds equal bilaterally. No wheezes , rales, or rhonchi. GASTROINTESTINAL: Abdomen soft, nondistended, diffusely tender to palpation. No guarding. Normal bowel sounds. MUSCULOSKELETAL: Extremities without clubbing, cyanosis, or edema. Right AKA. NEUROLOGICAL: Awake and alert. No focal neuro deficit. Normal speech. A/P Assessment and Plan 86-year-old female with: Sepsis: secondary to UTI. This is a recurrent UTI for the patient. She was discharged from the hospital about a week ago and completed treatment with antibiotics. Urine growing Zee. Discontinue Rocephin. Start fluconazole. Bladder scan. Retention may be contributing to recurrent UTI. Abdominal pain/constipation: Persistent. No response to lactulose, milk of magnesia, or enema. Patient does not remember having a colonoscopy. CT reviewed. There is a large amount of stool especially in the transverse colon. - Consult GI for assistance. A-fib: rate variable. Became elevated last night likely related to pain and patient was transferred to [facility]. - Continue amiodarone, Lopressor and Cardizem. DM: Uncontrolled. - HA1C 12.6 -Patient on 70/30 twice a day. Insulin sliding scale. Levemir 15 units twice a day. CHF: Echo 04/06/16 w/ EF 55-60%, CXR w/ no acute findings, No evidence of acute CHF. - Continue isosorbide, diltiazem, ASA. GI prophylaxis: Stool softener. DVT PPx: Mateo Eid MD Oct 08, 2016 10:11
[2016-10-08] MEDS ORDERED: FLUCONAZOLE 200 MG TAB PO ONE (12:00)
--- NOTE | 2016-10-08 15:28 | PD.CONS ---
HPI History of Present Illness This is a 86 year old female patient who came to the ER for generalized "not feeling well" and was admitted for UTI, N/V, abdominal pain. The patient is a poor historian and it is difficult to obtain a good history. She states she actually came to the ER because she "hurt my big toes" and her diabetes was acting up. She c/o nausea/vomiting with abdominal pain on admission, but she is currently denying this for me. GI has been consulted for severe constipation. She reports that she has a long history of constipation and that this is usually well controlled with Miralax on a daily basis. She reports that she is not getting this here. She reports that her last BM was about 2-3 days ago. Abdomen/Pelvis CT (10/07/16)-----> 1. Large amount stool in the colon especially the transverse colon. 2. Left adrenal gland adenoma. 3. Possible mild straightening right renal stones. 4. Anterior abdominal wall hernia the level of the umbilicus just the left of midline containing only mesenteric fat. She denies any nausea, vomiting at this time. She denies any significant weight loss, no hematemesis, melena, or hematochezia. She does have some mild lower abdominal cramping at times. She denies any relation to food intake and reports that if she lies still, it will pass. The nurse reports that manual disimpaction was attempted, but that there was nothing to disimpact and that she received an enema and MOM yesterday in addition to the lactulose, colace without any results. Her last colonoscopy was 15 years ago. PFSH Past Medical History Hypertension Diabetes Coronary artery disease Atrial fibrillation Right BKAfor diabetic foot infection COPD Chronic constipation Past Surgical History Cholecystectomy Coronary angiogram and stenting Coded Allergies: Digoxin (Verified Allergy, Severe, BLURRY VISION, 09/19/16) Oxycodone (Verified Allergy, Severe, Anaphylaxis, 09/19/16) Ativan (Verified Adverse Reaction, Severe, "makes me crazy", 09/19/16) Codeine (Verified Adverse Reaction, Severe, "makes me crazy", 09/19/16) Medications Allergies Coded Allergies Type Severity Reaction Last Updated Verified Digoxin Allergy Severe BLURRY VISION 09/19/16 Yes Oxycodone Allergy Severe Anaphylaxis 09/19/16 Yes Ativan Adverse Reaction Severe "makes me crazy" 09/19/16 Yes Codeine Adverse Reaction Severe "makes me crazy" 09/19/16 Yes Active Scripts Medications Dose Route/Sig Days Date Category Amitriptyline (Amitriptyline HCl) 75 Mg Tab 75 Mg PO ONCE 10/06/16 Reported Bumetanide 2 Mg Tab 2 Mg PO DAILY 10/06/16 Reported Diltiazem CD 24 HR 180 Mg Caper 180 Mg PO DAILY 09/25/16 Rx Glucophage (Metformin HCl) 500 Mg Tab 500 Mg PO BIDPC 09/25/16 Rx Amiodarone (Amiodarone HCl) 200 Mg Tab 400 Mg PO DAILY 09/25/16 Rx Novolin 70-30 Inj (Insulin Human Isoph/Insulin Regular) 1,000 Unit/10 Ml Vial 18 Units SQ BID@09/25/16 Rx Aspirin 81 Mg Tabdr 81 Mg PO DAILY 09/19/16 Reported Lopressor (Metoprolol Tartrate) 100 Mg Tab 100 Mg PO BID 07/04/16 Rx Allopurinol 100 Mg Tab 100 Mg PO DAILY 07/01/16 Reported Atorvastatin (Atorvastatin Calcium) 10 Mg Tab 10 Mg PO HS 07/01/16 Reported Atrovent HFA 12.9 GM Inh (Ipratropium [place]) 17 Mcg/Act Aer 1 Puff INH DIRECTED PRN 07/01/16 Reported Isosorbide Mononitrate ER (Isosorbide Mononitrate) 30 Mg Alejandro 30 Mg PO DAILY 07/01/16 Reported Family History Denies any family hx of esophageal, gastric, or colorectal cancer. Social History States is trying to quit smoking, she his down to 2 or 3 cigarettes a day now. Denies any alcohol abuse or drug abuse. Review of Systems Constitutional: COMPLAINS OF: Fatigue, DENIES: Weight loss, Change in appetite Respiratory: DENIES: Cough Cardiovascular: DENIES: Chest pain Gastrointestinal: COMPLAINS OF: Abdominal pain, Constipation, Swelling of Abdomen, DENIES: Black stools, Bloody stools, Diarrhea, Nausea, Vomiting, Heartburn Musculoskeletal: COMPLAINS OF: Joint pain Integumentary: DENIES: Abnormal pigmentation Neurologic: DENIES: Headache Psychiatric: DENIES: Confusion GI Exam Vitals I&O Vital Signs Date Time Temp Pulse Resp B/P Pulse Ox O2 Delivery O2 Flow Rate FiO2 10/08/16 14:12 111 10/08/16 13:04 110 10/08/16 12:26 111 10/08/16 11:44 97.8 116 18 98/51 96 10/08/16 11:17 100 10/08/16 10:07 109 10/08/16 09:35 103 10/08/16 08:22 107 10/08/16 07:54 98.7 86 16 110/49 96 10/08/16 07:46 94 10/07/16 23:51 98.1 143 17 104/56 97 10/07/16 21:05 97.2 130 17 100/52 95 10/07/16 20:00 119 10/07/16 16:00 99.2 96 19 121/58 95 I/O 10/07/16 10/07/16 10/07/16 10/08/16 10/08/16 10/08/16 07:00 15:00 23:00 07:00 15:00 23:00 Intake Total 120 ml 300 ml 120 ml Balance 120 ml 300 ml 120 ml Intake Oral 120 ml 300 ml 120 ml Bladder Scan Volume Amount 423 ml # Voids 3 1 # Bowel Movements 0 Imaging Last Impressions Abdomen/Pelvis CT 10/07/16 0000 Signed Impressions: Service Date/Time: Friday, October 07, 2016 01:50 - CONCLUSION: 1. Large amount stool in the colon especially the transverse colon. 2. Left adrenal gland adenoma. 3. Possible mild straightening right renal stones. 4. Anterior abdominal wall hernia the level of the umbilicus just the left of midline containing only mesenteric fat. Kurt Trujillo MD Chest X-Ray 10/06/161908 Signed Impressions: Service Date/Time: Thursday, October 06, 2016 19:08 - CONCLUSION: 1. Minimal basilar scarring or atelectasis. No effusion or pneumothorax. Elevated right hemidiaphragm. Jonny Martin MD Laboratory Test 10/08/16 08:01 White Blood Count 15.5 TH/MM3 Red Blood Count 3.99 MIL/MM3 Hemoglobin 9.2 GM/DL Hematocrit 32.4 % Mean Corpuscular Volume 81.3 FL Mean Corpuscular Hemoglobin 23.0 PG Mean Corpuscular Hemoglobin 28.3 % Concent Red Cell Distribution Width 18.9 % Platelet Count 259 TH/MM3 Mean Platelet Volume 8.1 FL Hematology Comments Sodium Level 139 MEQ/L Potassium Level 4.2 MEQ/L Chloride Level 105 MEQ/L Carbon Dioxide Level 23.1 MEQ/L Anion Gap 11 MEQ/L Blood Urea Nitrogen 55 MG/DL Creatinine 1.86 MG/DL Estimat Glomerular Filtration 26 ML/MIN Rate Random Glucose 92 MG/DL Calcium Level 8.4 MG/DL Date/Time Procedure Status Source Growth 10/06/16 19:30 Urine Culture - Preliminary Resulted Urine Catheterized Urine Zee Albicans Yeast-Id To Follow 10/06/16 19:30 Aerobic Blood Culture - Preliminary Resulted Blood Peripheral NO GROWTH IN 2 DAYS 10/06/16 19:30 Anaerobic Blood Culture - Preliminary Resulted Blood Peripheral NO GROWTH IN 2 DAYS Physical Examination HEENT: Normocephalic; atraumatic; no jaundice. CHEST: CTA CARDIAC: Irregular ABDOMEN: Soft, mildly distended, mild tenderness; no hepatosplenomegaly; bowel sounds are present in all four quadrants. EXTREMITIES: No clubbing, cyanosis, or edema. SKIN: Normal; no rash; no jaundice. [employer]: No focal deficits; alert and oriented times three. Assessment and Plan Plan ASSESSMENT: - Severe constipation (acute on chronic). Long history of constipation, that is controlled with daily Miralax. She has not received this during this hospitalization. Abdomen/Pelvis CT (10/07/16)-----> 1. Large amount stool in the colon especially the transverse colon. 2. Left adrenal gland adenoma. 3. Possible mild straightening right renal stones. 4. Anterior abdominal wall hernia the level of the umbilicus just the left of midline containing only mesenteric fat. The nurse reports that manual disimpaction was attempted, but that there was nothing to disimpact and that she received an enema and MOM yesterday in addition to the lactulose, colace without any results. Her last colonoscopy was 15 years ago. Creat. 1.86 and therefore cannot get magnesium citrate. Will give SSE x 2 and 1/2 gallon of Golytely and recheck KUB in am. - Abdominal cramping, improved, not currently having. - N/V, resolved. No longer having. - HTN, DM, CAD, Afib, COPD per primary PLAN: - TANIA - SSE x 2 - 1/2 Gallon Golytely - KUB in am - Once she moves her bowels, she will need to be on daily bowel regimen of Miralax 17 gram po daily- works for her at home - Supportive care - Further recommendations to follow based on results of above - Pt seen and examined by Dr. Arguelles and myself and this note is written on his behalf Arabella Watts Oct 08, 2016 15:28
[2016-10-08] MEDS ORDERED: PEG (High)/E-LYTE SOLN 4000 ML BTL PO ONE (15:30)
[2016-10-08] MEDS: DEXTROSE 50% IN WATER 50 ML VIAL(D50) IV PUSH PRN ×3 (16:05→22:49)
[2016-10-08] MEDS: ATORVASTATIN 10 MG TAB PO SCH (22:38)
[2016-10-09] VITALS (28 sets, daily range): BP systolic 120–147; BP diastolic 56–73; PULSE 84–120; RESP 18–28; TEMP 98–98.3; O2SAT 94–100
[2016-10-09] MEDS: DEXTROSE 50% IN WATER 50 ML VIAL(D50) IV PUSH PRN ×3 (01:35→01:40)
[2016-10-09] MEDS: DEXT 5%-NACL 0.9% 1000 ML INJ 1,000 ML IV SCH ×2 (02:30→14:25)
[2016-10-09] MEDS ORDERED: DEXTROSE 50% IN WATER 50 ML VIAL(D50) IV PUSH PRN ×2 (02:30→17:00)
--- NOTE | 2016-10-09 05:55 | RADRPT ---
EXAM DATE/TIME: 10/09/2016 05:05 [facility] COMPARISON: No previous studies available for comparison. INDICATIONS : Constipation. MEDICAL HISTORY : Hypertension. Chronic obstructive pulmonary disease. Diabetes mellitus type SURGICAL HISTORY : Coronary artery stent. ENCOUNTER: Subsequent ACUITY: 4 - 6 days PAIN SCORE: 0/10 LOCATION: Bilateral Abdomen. FINDINGS: The ascending and transverse portion of the colon appear distended. Air seen within nondistended segm ents of small bowel. Free air is not seen. CONCLUSION: Colonic distention involving the ascending and transverse portions of the colon. Kurt Trujillo MD on October 09, 2016 at 5:52 Board Certified Radiologist. This report was verified electronically.
[2016-10-09] MEDS: ISOSORBIDE MONONITRATE 30 MG TAB PO SCH (06:14)
[2016-10-09 06:50] LABS: HEMATOCRIT 30.2 % (35.0-46.0); MEAN CELL VOLUME 76.5 FL (80.0-100.0); MEAN CORPUSCULAR HEMOGLOBIN 23.3 PG (27.0-34.0); MEAN CORPUSCULAR HGB CONC 30.5 % (32.0-36.0); PLATELET COUNT 264 TH/MM3 (150-450); RED BLOOD COUNT 3.95 MIL/MM3 (4.00-5.30); RED CELL DISTRIBUTION WIDTH 18.4 % (11.6-17.2); WHITE BLOOD COUNT 13.8 TH/MM3 (4.0-11.0)
[2016-10-09 07:20] LABS: BICARBONATE 25.3 MEQ/L (21.0-32.0); POTASSIUM 4.6 MEQ/L (3.5-5.1)
--- NOTE | 2016-10-09 08:18 | HHI.PR ---
Subjective Remarks Patient reports persistent abdominal pain and bloating. Mild nausea. Tolerated a overdose morning. So far only had 2 cups of GoLYTELY. No bowel movements yet. Objective Vitals Vital Signs Date Time Temp Pulse Resp B/P Pulse Ox O2 Delivery O2 Flow Rate FiO2 10/09/16 06:00 106 10/09/16 05:00 104 10/09/16 04:00 108 10/09/16 03:00 98.1 104 22 94 10/09/16 03:00 89 10/09/16 02:00 92 10/09/16 01:00 94 10/09/16 00:00 102 10/08/16 23:00 90 10/08/16 23:00 97.9 98 21 116/59 95 10/08/16 22:00 106 10/08/16 21:00 104 10/08/16 20:00 104 10/08/16 19:00 97.5 106 20 129/55 96 10/08/16 19:00 89 10/08/16 18:10 99 10/08/16 17:17 94 10/08/16 16:16 108 10/08/16 15:53 97.7 112 16 96/57 96 10/08/16 15:17 112 10/08/16 14:12 111 10/08/16 13:04 110 10/08/16 12:26 111 10/08/16 11:44 97.8 116 18 98/51 96 10/08/16 11:17 100 10/08/16 10:07 109 10/08/16 09:35 103 10/08/16 08:22 107 I/O 10/08/16 10/08/16 10/08/16 10/09/16 10/09/16 10/09/16 07:00 15:00 23:00 07:00 15:00 23:00 Intake Total 120 ml 1575 ml 1137 ml Output Total 500 ml 325 ml Balance 120 ml 1075 ml 812 ml Intake Oral 120 ml 570 ml 480 ml IV Total 1005 ml 657 ml Output Urine Total 500 ml 325 ml Bladder Scan Volume Amount 423 ml # Voids 1 # Bowel Movements 0 Result Diagram: 10/09/1618 10/09/1618 Objective Remarks GENERAL: This is a well-nourished, well-developed patient, in no apparent distress. CARDIOVASCULAR: Regular rate and rhythm without murmurs, gallops, or rubs. RESPIRATORY: Clear to auscultation. Breath sounds equal bilaterally. No wheezes , rales, or rhonchi. GASTROINTESTINAL: Abdomen soft, mildly distended compared to yesterday, diffusely tender to palpation. No guarding. Normal bowel sounds. MUSCULOSKELETAL: Extremities without clubbing, cyanosis, or edema. Right AKA. NEUROLOGICAL: Awake and alert. No focal neuro deficit. Normal speech. A/P Assessment and Plan 86-year-old female with: Sepsis: secondary to UTI. This is a recurrent UTI for the patient. She was discharged from the hospital about a week ago and completed treatment with antibiotics. Urine growing Zee. Discontinue Rocephin. Continue fluconazole and plan to treat for total of 2 weeks. Abdominal pain/constipation: Persistent. No response to lactulose, milk of magnesia, or enema. Patient does not remember having a colonoscopy. CT reviewed. There is a large amount of stool especially in the transverse colon. -GI following. No response to enema. Currently taking GoLYTELY. Abdominal x- ray this morning shows colonic distention involving the ascending and transverse portions of the colon. - Monitor for bowel movements. Further plans per GI. Urinary retention: Patient has been having issues with retention, most recently during the last hospitalization when I took care of her. Given recurrent UTI, will leave Muñoz in place and arrange for her to follow up outpatient with urology. A-fib: rate variable. Intermittently elevated rate, secondary to pain. - Continue amiodarone, Lopressor and Cardizem. DM: Uncontrolled. - HA1C 12.6. Patient had an episode of hypoglycemia due to inadequate intake. Levemir is on hold. -Patient on 70/30 twice a day at home. Continue to follow with sliding scale insulin and Accu-Cheks. Chronic renal insufficiency: Appear to be stable. Continue to monitor. Avoid nephrotoxins. CHF: Echo 04/06/16 w/ EF 55-60%, CXR w/ no acute findings, No evidence of acute CHF. - Continue isosorbide, diltiazem, ASA. GI prophylaxis: Stool softener. DVT PPx: LoveMateo Horton MD Oct 09, 2016 08:18
[2016-10-09] MEDS: ENOXAPARIN SODIUM 30 MG/0.3 ML SYRINGE SQ SCH (08:31)
[2016-10-09] MEDS: METOPROLOL TARTRATE 100 MG TAB PO SCH ×2 (08:31→20:52)
[2016-10-09] MEDS: DOCUSATE SODIUM 100 MG CAP PO SCH ×3 (08:31→18:00)
[2016-10-09] MEDS: AMIODARONE 200 MG TAB PO SCH (08:32)
[2016-10-09] MEDS: ALLOPURINOL 100 MG TAB PO SCH (08:32)
[2016-10-09] MEDS: ASPIRIN EC 81 MG TABEC PO SCH (08:32)
[2016-10-09] MEDS: DILTIAZEM-CD 180 MG CAP ER PO SCH (08:32)
[2016-10-09] MEDS: FLUCONAZOLE 100 MG TAB PO SCH (08:33)
[2016-10-09] MEDS: SODIUM CHLORIDE 0.9% FLUSH 5 ML FLUSH FLUSH SCH ×2 (08:34→20:53)
--- NOTE | 2016-10-09 15:39 | HHI.GIFU ---
Subjective Remarks Resting in bed. Still working on eyeOS, has not even taken 1/3 at this time. Just had a medium loose bowel movement. Pt states she will still work on [employer] if they put it on ice. Objective Vitals I&O Vital Signs Date Time Temp Pulse Resp B/P Pulse Ox O2 Delivery O2 Flow Rate FiO2 10/09/16 14:26 109 10/09/16 13:02 104 10/09/16 12:01 110 10/09/16 12:00 102 10/09/16 11:30 98.2 84 20 120/64 100 10/09/16 11:30 106 10/09/16 11:01 100 10/09/16 11:00 104 10/09/16 10:00 102 10/09/16 09:00 110 10/09/16 09:00 110 10/09/16 08:30 95 10/09/16 08:00 98.0 105 18 139/73 95 10/09/16 08:00 116 10/09/16 07:00 108 10/09/16 07:00 108 10/09/16 06:00 106 10/09/16 05:00 104 10/09/16 04:00 108 10/09/16 03:00 98.1 104 22 94 10/09/16 03:00 89 10/09/16 02:00 92 10/09/16 01:00 94 10/09/16 00:00 102 10/08/16 23:00 90 10/08/16 23:00 97.9 98 21 116/59 95 10/08/16 22:00 106 10/08/16 21:00 104 10/08/16 20:00 104 10/08/16 19:00 97.5 106 20 129/55 96 10/08/16 19:00 89 10/08/16 18:10 99 10/08/16 17:17 94 10/08/16 16:16 108 10/08/16 15:53 97.7 112 16 96/57 96 I/O 10/08/16 10/08/16 10/08/16 10/09/16 10/09/16 10/09/16 07:00 15:00 23:00 07:00 15:00 23:00 Intake Total 120 ml 1575 ml 1137 ml Output Total 500 ml 325 ml Balance 120 ml 1075 ml 812 ml Intake Oral 120 ml 570 ml 480 ml IV Total 1005 ml 657 ml Output Urine Total 500 ml 325 ml Bladder Scan Volume Amount 423 ml # Voids 1 # Bowel Movements 0 Laboratory Laboratory Tests Test 10/09/16 06:18 White Blood Count 13.8 Red Blood Count 3.95 Hemoglobin 9.2 Hematocrit 30.2 Mean Corpuscular Volume 76.5 Mean Corpuscular Hemoglobin 23.3 Mean Corpuscular Hemoglobin 30.5 Concent Red Cell Distribution Width 18.4 Platelet Count 264 Mean Platelet Volume 8.3 Sodium Level 137 Potassium Level 4.6 Chloride Level 102 Carbon Dioxide Level 25.3 Anion Gap 10 Blood Urea Nitrogen 50 Creatinine 1.47 Estimat Glomerular Filtration 34 Rate Random Glucose 143 Calcium Level 8.5 Date/Time Procedure Status Source Growth 10/06/16 19:30 Urine Culture - Final Complete Urine Catheterized Urine Zee Albicans Zee Glabrata 10/06/16 19:30 Aerobic Blood Culture - Preliminary Resulted Blood Peripheral NO GROWTH IN 3 DAYS 10/06/16 19:30 Anaerobic Blood Culture - Preliminary Resulted Blood Peripheral NO GROWTH IN 3 DAYS Imaging Last Impressions Abdomen X-Ray 10/09/16 0600 Signed Impressions: Service Date/Time: Sunday, October 09, 2016 05:05 - CONCLUSION: Colonic distention involving the ascending and transverse portions of the colon. Kurt Trujillo MD Abdomen/Pelvis CT 10/07/16 0000 Signed Impressions: Service Date/Time: Friday, October 07, 2016 01:50 - CONCLUSION: 1. Large amount stool in the colon especially the transverse colon. 2. Left adrenal gland adenoma. 3. Possible mild straightening right renal stones. 4. Anterior abdominal wall hernia the level of the umbilicus just the left of midline containing only mesenteric fat. Kurt Trujillo MD Chest X-Ray 10/06/16 1909 Signed Impressions: Service Date/Time: Thursday, October 06, 2016 19:08 - CONCLUSION: 1. Minimal basilar scarring or atelectasis. No effusion or pneumothorax. Elevated right hemidiaphragm. Jonny Martin MD Physical Exam HEENT: Normocephalic; atraumatic; no jaundice. CHEST: CTA CARDIAC: RRR ABDOMEN: Soft, nondistended, nontender; no hepatosplenomegaly; bowel sounds are present in all four quadrants. EXTREMITIES: No clubbing, cyanosis, or edema. SKIN: Normal; no rash; no jaundice. METER READING CLERK: No focal deficits; alert and oriented x 2 Assessment and Plan Plan ASSESSMENT: - Severe constipation (acute on chronic). Long history of constipation, that is controlled with daily Miralax. She has not received this during this hospitalization. Abdomen/Pelvis CT (10/07/16)-----> 1. Large amount stool in the colon especially the transverse colon. 2. Left adrenal gland adenoma. 3. Possible mild straightening right renal stones. 4. Anterior abdominal wall hernia the level of the umbilicus just the left of midline containing only mesenteric fat. The nurse reports that manual disimpaction was attempted, but that there was nothing to disimpact and that she received an enema and MOM yesterday in addition to the lactulose, colace without any results. Her last colonoscopy was 15 years ago. KUB (10/09/16) Colonic distention involving the ascending and transverse portions of the colon. Only taken small amount of golytely, just had medium loose stool. States she can take the rest on ice. Will give SSE, did not take yesterday and complete the Golytely and recheck KUB in am, if no improvement, consider gastrografin enema vs. decompressive colonoscopy - Abdominal cramping, improved, not currently having. - N/V, resolved. No longer having. - HTN, DM, CAD, Afib, COPD per primary PLAN: - TANIA - SSE x 2 (did not take yesterday) - Finish Golytely on ice - KUB in am - Once she moves her bowels, she will need to be on daily bowel regimen of Miralax 17 gram po daily- works for her at home - Supportive care - Further recommendations to follow based on results of above - If no improvement, consider gastrografin enema vs. decompressive colonoscopy - Pt seen and examined by Dr. Arguelles and myself and this note is written on his behalf Arabella Watts Oct 09, 2016 15:38
[2016-10-09] MEDS ORDERED: GLUCAGON 1 MG/ML VIAL OTHER PRN (17:00)
[2016-10-09] MEDS: ATORVASTATIN 10 MG TAB PO SCH (20:52)
[2016-10-10] VITALS (21 sets, daily range): BP systolic 105–115; BP diastolic 48–53; PULSE 60–108; RESP 16–25; TEMP 97.1–98.5; O2SAT 95–100
[2016-10-10] MEDS: KETOROLAC TROMETHAMINE 30 MG/ML (IVP) VIAL IV PUSH PRN (01:51)
[2016-10-10] MEDS ORDERED: RESP: IPRATROPIUM 0.5 MG/2.5 ML NEB NEB PRN (03:45)
[2016-10-10] MEDS: RESP: IPRATROPIUM 0.5 MG/2.5 ML NEB NEB SCH ×3 (05:24→15:42)
--- NOTE | 2016-10-10 05:48 | RADRPT ---
EXAM DATE/TIME: 10/10/2016 04:21 [facility] COMPARISON: ABDOMEN KUB ONLY, October 09, 2016, 5:05. INDICATIONS : Abdominal distention. MEDICAL HISTORY : Hypertension. Chronic obstructive pulmonary disease. Diabetes mellitus type II. SURGICAL HISTORY : Coronary artery stent. ENCOUNTER: Subsequent ACUITY: 1 week PAIN SCORE: 0/10 LOCATION: Bilateral Abdomen FINDINGS: Supine view of the abdomen was performed. There is a moderate amount of stool seen throughout the co heaven. Significantly dilated small bowel is not seen. Surgical fasteners are seen in the midline. CONCLUSION: Moderate stool throughout the colon. Kurt Trujlilo MD on October 10, 2016 at 5:45 Board Certified Radiologist. This report was verified electronically.
[2016-10-10] MEDS: ISOSORBIDE MONONITRATE 30 MG TAB PO SCH (05:54)
[2016-10-10 06:07] LABS: HEMATOCRIT 32.6 % (35.0-46.0); MEAN CELL VOLUME 77.9 FL (80.0-100.0); MEAN CORPUSCULAR HEMOGLOBIN 24.2 PG (27.0-34.0); MEAN CORPUSCULAR HGB CONC 31.1 % (32.0-36.0); PLATELET COUNT 310 TH/MM3 (150-450); RED BLOOD COUNT 4.18 MIL/MM3 (4.00-5.30); RED CELL DISTRIBUTION WIDTH 18.7 % (11.6-17.2); WHITE BLOOD COUNT 9.6 TH/MM3 (4.0-11.0)
[2016-10-10 06:16] LABS: REVIEW FLAG FINAL
[2016-10-10 06:18] LABS: BICARBONATE 23.9 MEQ/L (21.0-32.0); POTASSIUM 4.2 MEQ/L (3.5-5.1)
[2016-10-10] MEDS: DILTIAZEM-CD 180 MG CAP ER PO SCH (09:51)
[2016-10-10] MEDS: DOCUSATE SODIUM 100 MG CAP PO SCH ×3 (09:51→17:15)
[2016-10-10] MEDS: ENOXAPARIN SODIUM 30 MG/0.3 ML SYRINGE SQ SCH (09:51)
[2016-10-10] MEDS: METOPROLOL TARTRATE 100 MG TAB PO SCH (09:59)
[2016-10-10] MEDS: ASPIRIN EC 81 MG TABEC PO SCH (09:59)
[2016-10-10] MEDS: ALLOPURINOL 100 MG TAB PO SCH (09:59)
[2016-10-10] MEDS: FLUCONAZOLE 100 MG TAB PO SCH (09:59)
[2016-10-10] MEDS: AMIODARONE 200 MG TAB PO SCH (10:00)
[2016-10-10] MEDS: SODIUM CHLORIDE 0.9% FLUSH 5 ML FLUSH FLUSH SCH (10:00)
[2016-10-10] MEDS ORDERED: DIFL100T PO (14:57)
[2016-10-10] MEDS ORDERED: MIRA33504 PO (14:57)
--- NOTE | 2016-10-10 14:59 | HHI.FF ---
Face to Face Verification Diagnosis: (1) Sepsis (2) UTI (urinary tract infection) (3) HTN (hypertension) (4) A-fib (5) Atrial fibrillation (6) CAD (coronary artery disease) (7) DM (diabetes mellitus) Physical Therapy Order: Evaluate and Treat, Improve ambulation, Strength and gait training Home Health Nursing Order: Medical education Signs/symptoms of disease process Medication education-adverse effect Muñoz catheter maintenance I have seen patient Amber Feldman on 10/10/16. My clinical findings support the need for the requested home health care services because: Ltd mobility - disease progression Deconditioned w/ increased weakness Med compliance is questionable Limited ability to care for self High risk of falls I certify that my clinical findings support that this patient is homebound because: Hx COPD- exertion dyspnea/weakness Unsteady gait/balance Poor cardiac reserve Mateo Lang MD Oct 10, 2016 14:59
--- NOTE | 2016-10-10 15:02 | HHI.DS ---
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 Patient reported that she came to the hospital because she has been extremely weak. She also reports that she is so nauseous and has been vomiting about 3 or 4 times a day for the past 3 days or so. Denies fever. Denies abdominal pain initially. However is quite tender on examination. Denies any diarrhea. She stated that she is in fact constipated and has not moved her bowels for the past 3 or 4 days. She is unsure whether she is still passing gas. Denies any hematemesis/hematochezia/melena. Patient also reports of urinary burning and pain on urination. However stated that it is not as bad as what it used to be. On review of medical records, patient recently had a klebsiella UTI. She reports that she completed her antibiotics course about 2 days ago. Patient denies any chest pain/palpitations/shortness of breath/focal weakness. Denies any dizziness/syncopal episodes. She states that she is wheelchair bound for the past 13 years or so. 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 She stated that she uses her prosthesis only while she is sitting on the wheelchair so that it doesn't look like she only has one leg. She lives at home with her family members and reports she gets a lot of help from the family members. She lives with her granddaughter, granddaughter's , teenage son. CBC/BMP: 10/10/16 0516 10/10/16 0516 Significant Findings Laboratory Tests Test 2/21/17 2/22/17 2/23/17 08:01 06:18 05:16 White Blood Count 15.5 TH/MM3 13.8 TH/MM3 (4.0-11.0) (4.0-11.0) Red Blood Count 3.99 MIL/MM3 3.95 MIL/MM3 (4.00-5.30) (4.00-5.30) Hemoglobin 9.2 GM/DL 9.2 GM/DL 10.1 GM/DL (11.6-15.3) (11.6-15.3) (11.6-15.3) Hematocrit 32.4 % 30.2 % 32.6 % (35.0-46.0) (35.0-46.0) (35.0-46.0) Mean Corpuscular Hemoglobin 23.0 PG 23.3 PG 24.2 PG (27.0-34.0) (27.0-34.0) (27.0-34.0) Mean Corpuscular Hemoglobin 28.3 % 30.5 % 31.1 % Concent (32.0-36.0) (32.0-36.0) (32.0-36.0) Red Cell Distribution Width 18.9 % 18.4 % 18.7 % (11.6-17.2) (11.6-17.2) (11.6-17.2) Blood Urea Nitrogen 55 MG/DL (7-18) 50 MG/DL (7-18) 44 MG/DL (7-18) Creatinine 1.86 MG/DL 1.47 MG/DL 1.26 MG/DL (0.50-1.00) (0.50-1.00) (0.50-1.00) Estimat Glomerular Filtration 26 ML/MIN (>89) 34 ML/MIN (>89) 40 ML/MIN (>89) Rate Calcium Level 8.4 MG/DL (8.5-10.1) Mean Corpuscular Volume 76.5 FL 77.9 FL (80.0-100.0) (80.0-100.0) Random Glucose 143 MG/DL 216 MG/DL (74-106) (74-106) Imaging Last Impressions Abdomen X-Ray 10/10/16 0600 Signed Impressions: Service Date/Time: September 04:21 - CONCLUSION: Moderate stool throughout the colon. Kurt Trujillo MD Abdomen/Pelvis CT 10/07/16 0000 Signed Impressions: Service Date/Time: Friday, October 07, 2016 01:50 - CONCLUSION: 1. Large amount stool in the colon especially the transverse colon. 2. Left adrenal gland adenoma. 3. Possible mild straightening right renal stones. 4. Anterior abdominal wall hernia the level of the umbilicus just the left of midline containing only mesenteric fat. Kurt Trujillo MD Chest X-Ray 10/06/16 1909 Signed Impressions: Service Date/Time: Thursday, October 06, 2016 19:08 - CONCLUSION: 1. Minimal basilar scarring or atelectasis. No effusion or pneumothorax. Elevated right hemidiaphragm. Jonny Martin MD PE at Discharge GENERAL: This is a well-nourished, well-developed patient, in no apparent distress. CARDIOVASCULAR: Regular rate and rhythm without murmurs, gallops, or rubs. RESPIRATORY: Clear to auscultation. Breath sounds equal bilaterally. No wheezes , rales, or rhonchi. GASTROINTESTINAL: Abdomen soft, mildly distended compared to yesterday, diffusely tender to palpation. No guarding. Normal bowel sounds. MUSCULOSKELETAL: Extremities without clubbing, cyanosis, or edema. Right AKA. NEUROLOGICAL: Awake and alert. No focal neuro deficit. Normal speech. Pt update on day of discharge Patient adamantly refused colonoscopy. She reports feeling much better. Abdominal pain has resolved. She's had multiple bowel movements. She understand the need to follow-up with urology regarding urinary retention. Hospital Course 86-year-old female admitted and treated for the following: Sepsis: secondary to UTI. This is a recurrent UTI for the patient. She was discharged from the hospital about a week ago and completed treatment with antibiotics. Urine growing Zee. I suspect urinary retention is contributing to recurrent UTI. A Muñoz was placed which will be continued until the patient is evaluated by urology outpatient. Continue fluconazole and treat for total of 2 weeks. Abdominal pain/constipation: Patient has had chronic constipation and has been on Miralax outpatient. She did not respond to lactulose, milk of magnesia, or enema. Patient does not remember having a colonoscopy. CT reviewed. There is a large amount of stool especially in the transverse colon. She was followed by GI and was started on GoLYTELY. She did respond with multiple bowel movements. A colonoscopy was recommended. However the patient adamantly refused a colonoscopy. She is discharged home on MiraLAX to be taken daily. She is advised to stay hydrated. Urinary retention: Patient has been having issues with retention, most recently during the last hospitalization when I took care of her. Given recurrent UTI, will leave Muñoz in place and refer her to follow up outpatient with urology. A-fib: rate variable. Intermittently elevated rate, secondary to pain. - Continue amiodarone, Lopressor and Cardizem. DM: - HA1C 12.6. Resume home medication. Advised to follow up outpatient with PCP. Chronic renal insufficiency: Stable. CHF: Echo 04/06/16 w/ EF 55-60%, CXR w/ no acute findings, No evidence of acute CHF. - Continue isosorbide, diltiazem, ASA. Pt Condition on Discharge: Good Discharge Disposition: Disch w/ Home Health Serv Discharge Time: <= 30 minutes Discharge Instructions DIET: Follow Instructions for: Diabetic Diet Activities you can perform: Regular-No Restrictions Follow up Referrals: Urology - 1 Week @ [facility] Continued Follow up Referrals: PCP Follow-up - 1 Week New Medications: Polyethylene Glycol 3350 Powder (Miralax Powder) 17 Gm Powd 17 GM PO DAILY Mix and dissolve one measuring cap-ful (17 grams) in water or juice. Constipation #1 Ref 0 BOTTLE Fluconazole (Diflucan) 100 Mg Tab 100 MG PO DAILY #14 TAB Continued Medications: Allopurinol (Allopurinol) 100 Mg Tab 100 MG PO DAILY Gout #30 Ref 0 TAB Amiodarone (Amiodarone) 200 Mg Tab 400 MG PO DAILY #30 TAB Amitriptyline (Amitriptyline) 75 Mg Tab 75 MG PO ONCE #1 TAB Aspirin (Aspirin) 81 Mg Tabdr 81 MG PO DAILY TAB Atorvastatin (Atorvastatin) 10 Mg Tab 10 MG PO HS Cholesterol Management #30 Ref 0 TAB Diltiazem CD 24 HR (Diltiazem CD 24 HR) 180 Mg Caper 180 MG PO DAILY #30 Ref 0 CAP Insulin Human Isophane-Regular 70-30 Inj (Novolin 70-30 Inj) 1,000 Unit/10 Ml Vial 18 UNITS SQ BID@08,17 DM #10 INJECTION Ipratropium HFA 12.9 GM Inh (Atrovent HFA 12.9 GM Inh) 17 Mcg/Act Aer 1 PUFF INH DIRECTED PRN SHORTNESS OF BREATH #1 Ref 0 INHALER Isosorbide Mononitrate ER (Isosorbide Mononitrate ER) 30 Mg Alejandro 30 MG PO DAILY Prevent Chest Pain #30 Ref 0 TAB Metformin (Glucophage) 500 Mg Tab 500 MG PO BIDPC #60 TAB Metoprolol Tartrate (Lopressor) 100 Mg Tab 100 MG PO BID ARRH #60 Ref 0 TAB Discontinued Medications: Bumetanide (Bumetanide) 2 Mg Tab 2 MG PO DAILY Ref 0 TAB Mateo Lang MD Oct 10, 2016 15:02
--- NOTE | 2016-10-10 15:55 | HHI.GIFU ---
Subjective Remarks Patient is resting in bed, had 2 BMs today, denies abdomen pain, nausea or vomiting, going home soon Objective Vitals I&O Vital Signs Date Time Temp Pulse Resp B/P Pulse Ox O2 Delivery O2 Flow Rate FiO2 10/10/16 15:00 68 10/10/16 11:00 75 10/10/16 11:00 97.5 77 16 115/53 99 10/10/16 08:43 98 Nasal Cannula 2.00 10/10/16 07:00 97.1 79 16 105/48 100 10/10/16 07:00 66 10/10/16 06:00 60 10/10/16 05:24 95 Nasal Cannula 2.00 10/10/16 05:00 73 10/10/16 04:00 64 10/10/16 03:00 98.5 78 25 114/52 96 10/10/16 03:00 87 10/10/16 02:00 86 10/10/16 01:00 108 10/10/16 00:00 100 10/09/16 23:00 104 10/09/16 23:00 98.3 100 28 140/68 100 10/09/16 22:00 102 10/09/16 21:00 120 10/09/16 20:00 110 10/09/16 19:00 98.1 98 27 129/62 98 10/09/16 19:00 104 10/09/16 18:03 106 10/09/16 17:17 92 10/09/16 16:38 114 I/O 10/09/16 10/09/16 10/09/16 10/10/16 10/10/16 10/10/16 07:00 15:00 23:00 07:00 15:00 23:00 Intake Total 1137 ml 1320 ml 240 ml Output Total 325 ml 450 ml 425 ml Balance 812 ml 870 ml -185 ml Intake Oral 480 ml 480 ml 240 ml IV Total 657 ml 840 ml Output Urine Total 325 ml 450 ml 425 ml # Bowel Movements 0 2 3 Laboratory Laboratory Tests Test 10/10/16 05:16 White Blood Count 9.6 Red Blood Count 4.18 Hemoglobin 10.1 Hematocrit 32.6 Mean Corpuscular Volume 77.9 Mean Corpuscular Hemoglobin 24.2 Mean Corpuscular Hemoglobin 31.1 Concent Red Cell Distribution Width 18.7 Platelet Count 310 Mean Platelet Volume 8.4 Sodium Level 137 Potassium Level 4.2 Chloride Level 104 Carbon Dioxide Level 23.9 Anion Gap 9 Blood Urea Nitrogen 44 Creatinine 1.26 Estimat Glomerular Filtration 40 Rate Random Glucose 216 Calcium Level 8.5 Date/Time Procedure Status Source Growth 10/06/16 19:30 Urine Culture - Final Complete Urine Catheterized Urine Zee Albicans Zee Glabrata 10/06/16 19:30 Aerobic Blood Culture - Preliminary Resulted Blood Peripheral NO GROWTH IN 4 DAYS 10/06/16 19:30 Anaerobic Blood Culture - Preliminary Resulted Blood Peripheral NO GROWTH IN 4 DAYS Imaging Last Impressions Abdomen X-Ray 10/10/16 0600 Signed Impressions: Service Date/Time: September 04:21 - CONCLUSION: Moderate stool throughout the colon. Kurt Trujillo MD Abdomen/Pelvis CT 10/07/16 0000 Signed Impressions: Service Date/Time: Friday, October 07, 2016 01:50 - CONCLUSION: 1. Large amount stool in the colon especially the transverse colon. 2. Left adrenal gland adenoma. 3. Possible mild straightening right renal stones. 4. Anterior abdominal wall hernia the level of the umbilicus just the left of midline containing only mesenteric fat. Kurt Trujillo MD Chest X-Ray 10/06/16 1909 Signed Impressions: Service Date/Time: Thursday, October 06, 2016 19:08 - CONCLUSION: 1. Minimal basilar scarring or atelectasis. No effusion or pneumothorax. Elevated right hemidiaphragm. Jonny Maritn MD Physical Exam HEENT: Normocephalic; atraumatic; no jaundice. CHEST: CTA CARDIAC: RRR ABDOMEN: Soft, nondistended, nontender; no hepatosplenomegaly; bowel sounds are present in all four quadrants. EXTREMITIES: No clubbing, cyanosis, or edema. SKIN: Normal; no rash; no jaundice. RESEARCH LIBRARIAN: No focal deficits; alert and oriented x 2 Assessment and Plan Plan ASSESSMENT: - Severe constipation (acute on chronic). Resolved, moving her bowels KUB on (10/10/16) moderate stool through out the colon Long history of constipation, that is controlled with daily Miralax. She has not received this during this hospitalization. Abdomen/Pelvis CT (10/07/16)-----> 1. Large amount stool in the colon especially the transverse colon. 2. Left adrenal gland adenoma. 3. Possible mild straightening right renal stones. 4. Anterior abdominal wall hernia the level of the umbilicus just the left of midline containing only mesenteric fat. - N/V/abd pain, resolved. No longer having. - HTN, DM, CAD, Afib, COPD per primary PLAN: - TANIA - She will need to be on daily bowel regimen of Miralax 17 gram po daily- previously worked for her - Gi will sign off - Pt seen and examined by Dr. Arguelles and myself and this note is written on his behalf Hoda Juan Oct 10, 2016 15:55
[2016-10-11] MEDS ORDERED: POLYETHYLENE GLYCOL 17 GM PKG PO SCH (09:00)
== END 2016-10-10 18:21 | disposition home health service (06) | DRG 872 ==
LOC: NEPA 18:35 → NEDA 21:03 → N05A 23:26 → HCIN 10-08 05:16
PROVIDERS: ADMIT Family Medicine; ATTEND Family Medicine
PROC: 0T9B70Z Drainage of Bladder with Drainage Device, Via Natural or Artificial Opening (ICD-10-PCS; principal; 2016-10-08)
DX: A41.9 Sepsis, unspecified organism (principal); E87.2 Acidosis; E11.22 Type 2 diabetes mellitus with diabetic chronic kidney disease; E11.65 Type 2 diabetes mellitus with hyperglycemia; N39.0 Urinary tract infection, site not specified; I50.9 Heart failure, unspecified; I48.91 Unspecified atrial fibrillation; I12.9 Hypertensive chronic kidney disease with stage 1 through stage 4 chronic kidney disease, or unspecified chronic kidney disease; N18.9 Chronic kidney disease, unspecified; R30.0 Dysuria; M19.90 Unspecified osteoarthritis, unspecified site; J45.909 Unspecified asthma, uncomplicated; J44.9 Chronic obstructive pulmonary disease, unspecified; H91.91 Unspecified hearing loss, right ear; I25.10 Atherosclerotic heart disease of native coronary artery without angina pectoris; Z95.5 Presence of coronary angioplasty implant and graft; K44.9 Diaphragmatic hernia without obstruction or gangrene; Z82.49 Family history of ischemic heart disease and other diseases of the circulatory system; Z88.5 Allergy status to narcotic agent; Z88.8 Allergy status to other drugs, medicaments and biological substances; E78.00 Pure hypercholesterolemia, unspecified; R39.15 Urgency of urination; D64.9 Anemia, unspecified; Z99.3 Dependence on wheelchair; Z89.511 Acquired absence of right leg below knee; Z79.84 Long term (current) use of oral hypoglycemic drugs; F17.210 Nicotine dependence, cigarettes, uncomplicated; K59.09 Other constipation; D35.02 Benign neoplasm of left adrenal gland; N20.0 Calculus of kidney; K43.9 Ventral hernia without obstruction or gangrene; Z87.440 Personal history of urinary (tract) infections; K59.8 Other specified functional intestinal disorders
CPT/HCPCS: 71010; 74000; 74176; 76937; 80048; 80053; 81001; 82550; 82948; 83605; 83690; 83735; 84484; 85007; 85025; 85027; 85610; 85730; 87040; 87086; 93005; 94640; 94664; 96361; 96374; 96375; J0696; J1650; J1815; J1885; J2405; J2550; J7030; J7042; J7644

== ENCOUNTER 2016-10-12 16:16 | Inpatient (IN) | payer OTHER, MEDICARE ==
[~2016-10-12] VITALS: Ht 170.2 cm; Wt 82.0 kg
[~2016-10-12 16:16] MED LIST changes: +AMIT75TA2 PO; -CIPR-9 PO; +DIFL100T PO; +MIRA33504 PO
[2016-10-12 16:20] VITALS: BP 129/71; PULSE 98; RESP 16; TEMP 97.7; O2SAT 95
--- NOTE | 2016-10-12 16:32 | PD ---
HPI Chief Complaint: Complaint Time Seen by Provider: 16:19 Travel History International Travel<30 days: No Contact w/Intl Traveler<30days: No Traveled to known affect area: No History of Present Illness HPI This is an 86-year-old female who presents to the emergency department having recently been discharged from the hospital having been treated for sepsis in the setting of a urinary tract infection, coming in today with what she reports as flulike symptoms. She says she's had a cough that is nonproductive, constant , moderate severity ever since she left the hospital associated with malaise and weakness and some body aches. Nursing report was that she has home health coming to her house and a home health aide was concerned because she thought the urine looked more cloudy than normal. 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) Endocrine: No Gastrointestinal Disorders: Yes (IBS) GERD: No Glaucoma: No Genitourinary: No Headaches: Yes (WHEN BLOOD SUGAR GETS HIGH) Hepatitis: No Hiatal Hernia: Yes Heparin Induced Thrombocytopen: No Hypertension: Yes Immune Disorder: No Inguinal Hernia: No Implanted Vascular Access Dvce: Yes Kidney Stones: No Musculoskeletal: Yes Neurologic: No Psychiatric: No Reproductive: No Respiratory: Yes Integumentary: Yes Immunizations Current: Yes Migraines: No Myocardial Infarction: No Pneumonia: Yes Radiation Therapy: No Renal Failure: No Seizures: No Sickle Cell Disease: No Sleep Apnea: No Thyroid Disease: No Ulcer: No Tetanus Vaccination: < 5 Years Influenza Vaccination: Yes PNEUMOCCOCAL Vaccine (Year): 1 Menopausal: Yes : 4 Para: 4 Miscarriage: 0 : 0 Past Surgical History Abdominal Surgery: Yes (gallbladder) AICD: No Appendectomy: No Arteriovenous Shunt: No Body Medical Devices: STENTS x 4 cardiac Cardiac Surgery: Yes (4 stents over 10 years) Cholecystectomy: Yes Coronary Artery Bypass Graft: No Coronary Stent: Yes (2005 & 2006) Ear Surgery: No Endocrine Surgery: No Eye Surgery: No Genitourinary Surgery: No Gynecologic Surgery: No Hysterectomy: Yes Insulin Pump: No Joint Replacement: No Neurologic Surgery: No Oral Surgery: Yes (teeth) Pacemaker: No Thoracic Surgery: No Other Surgery: Yes (GALLSTONES; R LEG AMPUTATED) Family History Family Myocardial Infarction: Yes (father of pardo) Social History Alcohol Use: No Tobacco Use: No Substance Use: No Allergies-Medications (Allergen,Severity, Reaction): Coded Allergies: Digoxin (Verified Allergy, Severe, BLURRY VISION, 10/12/16) Oxycodone (Verified Allergy, Severe, Anaphylaxis, 10/12/16) Ativan (Verified Adverse Reaction, Severe, "makes me crazy", 10/12/16) Codeine (Verified Adverse Reaction, Severe, "makes me crazy", 10/12/16) Reported Meds & Prescriptions Reported Meds & Active Scripts Active Miralax Powder (Polyethylene Glycol 3350 Powder) 17 Gm Powd 17 Gm PO DAILY Mix and dissolve one measuring cap-ful (17 grams) in water or juice. Diflucan (Fluconazole) 100 Mg Tab 100 Mg PO DAILY Diltiazem CD 24 HR 180 Mg Caper 180 Mg PO DAILY Glucophage (Metformin HCl) 500 Mg Tab 500 Mg PO BIDPC Amiodarone (Amiodarone HCl) 200 Mg Tab 400 Mg PO DAILY Novolin 70-30 Inj (Insulin Human Isoph/Insulin Regular) 1,000 Unit/10 Ml Vial 18 Units SQ BID@08,17 Lopressor (Metoprolol Tartrate) 100 Mg Tab 100 Mg PO BID Reported Amitriptyline (Amitriptyline HCl) 75 Mg Tab 75 Mg PO ONCE Aspirin 81 Mg Tabdr 81 Mg PO DAILY Allopurinol 100 Mg Tab 100 Mg PO DAILY Atorvastatin (Atorvastatin Calcium) 10 Mg Tab 10 Mg PO HS Atrovent HFA 12.9 GM Inh (Ipratropium [place]) 17 Mcg/Act Aer 1 Puff INH DIRECTED PRN Isosorbide Mononitrate ER (Isosorbide Mononitrate) 30 Mg Alejandro 30 Mg PO DAILY Review of Systems Except as stated in HPI: all other systems reviewed are Neg Physical Exam Narrative GENERAL:Well appearing, no acute distress SKIN: Dry with skin tenting HEAD: Atraumatic. Normocephalic. EYES: Pupils equal and round. No injection or drainage. ENT: Moist mucous membranes NECK: Trachea midline. CARDIOVASCULAR: Regular rate and rhythm. No murmur appreciated. RESPIRATORY: Rales in the left upper and lower lobe, wet sounding cough GASTROINTESTINAL: Abdomen soft, non-tender, nondistended. MUSCULOSKELETAL: No obvious deformities. NEUROLOGICAL: Awake and alert. No obvious cranial nerve deficits. Moving all extremities. PSYCHIATRIC: Appropriate mood and affect; insight and judgment normal. Data Data Last Documented VS Vital Signs Date Time Temp Pulse Resp B/P Pulse Ox O2 Delivery O2 Flow Rate FiO2 10/12/16 16:20 97.7 98 16 129/71 95 Orders Complete Blood Count With Diff (10/12/16 16:30) Comprehensive Metabolic Panel (10/12/16 16:30) Urinalysis - C+S If Indicated (10/12/16 16:30) Chest, Single Ap (10/12/16 ) ^ Insert Iv (10/12/16 16:30) B-Type Natriuretic Peptide (10/12/16 17:15) Troponin I (10/12/16 17:15) Electrocardiogram (10/12/16 ) Continue Muñoz/Suprapubic Cath (10/12/16 17:36) Pantoprazole Inj (Protonix Inj) (10/12/16 19:15) Pantoprazole Inj (Protonix Inj) (10/12/16 19:15) Labs Laboratory Tests Test 10/12/16 10/12/16 17:16 17:40 White Blood Count 9.0 TH/MM3 Red Blood Count 3.48 MIL/MM3 Hemoglobin 8.4 GM/DL Hematocrit 26.3 % Mean Corpuscular Volume 75.6 FL Mean Corpuscular Hemoglobin 24.0 PG Mean Corpuscular Hemoglobin 31.8 % Concent Red Cell Distribution Width 18.1 % Platelet Count 293 TH/MM3 Mean Platelet Volume 7.7 FL Neutrophils (%) (Auto) 78.5 % Lymphocytes (%) (Auto) 8.8 % Monocytes (%) (Auto) 11.4 % Eosinophils (%) (Auto) 1.1 % Basophils (%) (Auto) 0.2 % Neutrophils # (Auto) 7.1 TH/MM3 Lymphocytes # (Auto) 0.8 TH/MM3 Monocytes # (Auto) 1.0 TH/MM3 Eosinophils # (Auto) 0.1 TH/MM3 Basophils # (Auto) 0.0 TH/MM3 CBC Comment AUTO DIFF Sodium Level 141 MEQ/L Potassium Level 4.7 MEQ/L Chloride Level 106 MEQ/L Carbon Dioxide Level 26.9 MEQ/L Anion Gap 8 MEQ/L Blood Urea Nitrogen 28 MG/DL Creatinine 0.99 MG/DL Estimat Glomerular Filtration 53 ML/MIN Rate Random Glucose 121 MG/DL Calcium Level 8.7 MG/DL Total Bilirubin 0.3 MG/DL Aspartate Amino Transf 28 U/L (AST/SGOT) Alanine Aminotransferase 19 U/L (ALT/SGPT) Alkaline Phosphatase 74 U/L Troponin I LESS THAN 0.02 NG/ML B-Type Natriuretic Peptide 391 PG/ML Total Protein 5.8 GM/DL Albumin 1.8 GM/DL Urine Color LIGHT-YELLOW Urine Turbidity CLEAR Urine pH 5.0 Urine Specific [place] 1.009 Urine Protein NEG mg/dL Urine Glucose (UA) NEG mg/dL Urine Ketones NEG mg/dL Urine Occult Blood NEG Urine Nitrite NEG Urine Bilirubin NEG Urine Urobilinogen LESS THAN 2.0 MG/DL Urine Leukocyte Esterase NEG Urine RBC 1 /hpf Urine WBC 1 /hpf Urine Hyaline Casts 5 /lpf Urine Mucus FEW /lpf Microscopic Urinalysis Comment CULT NOT INDICATED MDM Medical Decision Making Medical Screen Exam Complete: Yes Emergency Medical Condition: Yes Medical Record Reviewed: Yes (patient was just admitted to the hospital for sepsis in the setting of a urinary tract infection) Interpretation(s) Afebrile, mild tachycardia, normotensive No leukocytosis Anemia: Hct 32->26 Left shift BUN slightly elevated BNP is 391 Urinalysis is negative for infection Differential Diagnosis Pneumonia, congestive heart failure, anemia, viral syndrome, fluctuant abnormality, urinary tract infection Narrative Course This is an 86-year-old female who was recently discharged from the hospital the setting of a urinary tract infection who presents to the emergency department feeling persistently weak saying she has flulike symptoms. In a monitor and an IV was established. Labs demonstrate a 6 point hematocrit drop over 2 days. Patient was Hemoccult positive. I suspect her symptoms are in the setting of a GI bleed. Labs otherwise were fairly unremarkable with a normal urinalysis. She does have bibasilar infiltrates on chest x-ray but I doubt pneumonia in the absence of fever or leukocytosis. I think patient requires admission for GI evaluation and continued Protonix. HemaPrompt Point of Care Internal Pos. & Neg. Controls: Passed Fecal Specimen Occult Blood: Positive Diagnosis Primary Impression: GI bleed Qualified Code: K92.2 - Gastrointestinal hemorrhage, unspecified gastrointestinal hemorrhage type Admitting Information Admitting Physician Requests: it Rhoda Curry MD Oct 12, 2016 16:32
--- NOTE | 2016-10-12 17:07 | RADRPT ---
EXAM DATE/TIME: 10/12/2016 16:54 [facility] COMPARISON: CHEST SINGLE AP, October 06, 2016, 19:08. INDICATIONS : Shortness of breath. MEDICAL HISTORY : Diabetes mellitus type II. Hypertension. Chronic obstructive pulmonary disease. SURGICAL HISTORY : Coronary artery stent. ENCOUNTER: Initial ACUITY: 1 week PAIN SCORE: 0/10 LOCATION: chest FINDINGS: A single view of the chest demonstrates minimal bibasilar patchy densities. Heart borderline enlarged The cardiomediastinal contours are unremarkable. Osseous structures are intact. CONCLUSION: 1. Bibasilar patchy densities. 2. Borderline cardiomegaly. Dmitry Chen MD on October 12, 2016 at 17:05 Board Certified Radiologist. This report was verified electronically.
[2016-10-12 17:30] LABS: AUTOMATED NEUTROPHIL # 7.1 TH/MM3 (1.8-7.7); BASOPHIL % 0.2 % (0.0-2.0); EOSINOPHIL # 0.1 TH/MM3 (0-0.4); EOSINOPHIL % 1.1 % (0.0-4.0); HEMATOCRIT 26.3 % (35.0-46.0); LYMPH % 8.8 % (9.0-44.0); LYMPHOCYTE # 0.8 TH/MM3 (1.0-4.8); MEAN CELL VOLUME 75.6 FL (80.0-100.0); MEAN CORPUSCULAR HGB CONC 31.8 % (32.0-36.0); MONO % 11.4 % (0.0-8.0); NEUT % 78.5 % (16.0-70.0); PLATELET COUNT 293 TH/MM3 (150-450); RED BLOOD COUNT 3.48 MIL/MM3 (4.00-5.30); RED CELL DISTRIBUTION WIDTH 18.1 % (11.6-17.2)
[2016-10-12 17:36] LABS: HEMO FLAGS AUTO DIFF
[2016-10-12 18:26] LABS: ALKALINE PHOSPHATASE 74 U/L (45-117); ALT (GPT) 19 U/L (10-53); ANION GAP 8 MEQ/L (5-15); AST (GOT) 28 U/L (15-37); BICARBONATE 26.9 MEQ/L (21.0-32.0); BLOOD UREA NITROGEN 28 MG/DL (7-18); CHLORIDE 106 MEQ/L (98-107); GLOMERULAR FILTRATION RATE 53 ML/MIN (>89); POTASSIUM 4.7 MEQ/L (3.5-5.1); SODIUM (NA) 141 MEQ/L (136-145); TOTAL BILIRUBIN ADULT 0.3 MG/DL (0.2-1.0)
[2016-10-12 18:32] LABS: BLOOD, URINE NEG (NEG); COMMENT (UR) CULT NOT INDICATED; CULTURE IF INDICATED CULT NOT INDICATED; GLUCOSE,URINE NEG (NEG); HYALINE CAST, URINE 5 /lpf (RARE); KETONE, URINE NEG (NEG); MUCUS URINE FEW /lpf (OCC); NITRITE,URINE NEG (NEG); URINE COLOR LIGHT-YELLOW (YELLW/STRAW)
--- NOTE | 2016-10-12 19:09 | HHI.HP ---
[facility] Lon Kothari MD Admission Diagnosis gi bleed Diagnoses: (1) GI bleed Diagnosis: Principal (2) Generalized weakness Diagnosis: Principal (3) UTI (urinary tract infection) Diagnosis: Principal (4) A-fib Diagnosis: Principal (5) COPD (chronic obstructive pulmonary disease) Diagnosis: Principal (6) HTN (hypertension) Diagnosis: Principal (7) DM (diabetes mellitus) Diagnosis: Principal Travel History International Travel<30 Days: No Contact w/Intl Traveler <30 Da: No Traveled to Known Affected Are: No History of Present Illness This is an 86-year-old female with a PMH of HTN, A. fib on ASA, CHF (Echo w/ EF 55-60%), CAD, Depression, DM and COPD who presented to the ER w/ complaints of generalized weakness x3 days. Recent admit 10/06-10/10/16 for Sepsis, UTI and Constipation, s/p eval by GI and d/c'd on Fluconazole 100mg qd x14 days for Zee + Urine Cultures. States has been having weakness since discharge. Reports associated non-productive cough, however no fever, chills, chest pain or SOB. On arrival, BP 129/71, HR 98, O2 sat 95% on 2L NC, Afebrile. WBC normal. Hgb 8.4, previously 10.1 on 10/10/16. +Hemoccult positive. Only on ASA per review of home medications. CXR w/ bibasilar patchy densities. S/p Protonix IV and started on Protonix gtt in ER. U/a negative. Review of Systems Except as stated in HPI: all other systems reviewed are Neg ROS: 14 point review of systems otherwise negative. Past Family Social History Past Medical History PMH: HTN, A. fib on ASA, CHF (Echo 04/06/16 w/ EF 55-60%), CAD, Depression, DM and COPD Past Surgical History PAST SURGICAL HISTORY: Cholecystectomy, Cardiac Stent, Hysterectomy, Dental Extraction, Right BKA Allergies: Coded Allergies: Digoxin (Verified Allergy, Severe, BLURRY VISION, 10/12/16) Oxycodone (Verified Allergy, Severe, Anaphylaxis, 10/12/16) Ativan (Verified Adverse Reaction, Severe, "makes me crazy", 10/12/16) Codeine (Verified Adverse Reaction, Severe, "makes me crazy", 10/12/16) Family History PAST FAMILY HISTORY: Reviewed. No h/o DM or CAD Social History PAST SOCIAL HISTORY: Negative for alcohol, tobacco or drugs. Physical Exam Vital Signs Vital Signs Date Time Temp Pulse Resp B/P Pulse Ox O2 Delivery O2 Flow Rate FiO2 10/12/16 16:20 97.7 98 16 129/71 95 Physical Exam PE: GENERAL: Elderly white female in no acute distress. HEENT: PERRLA, EOMI. No scleral icterus or conjunctival pallor. No lid lag or facial droop. CARDIOVASCULAR: Irregularly irregular, in A. fib, rate controlled. No obvious murmurs to auscultation. No chest tenderness to palpation. RESPIRATORY: No obvious rhonchi or wheezing. Clear to auscultation. Breath sounds equal bilaterally. GASTROINTESTINAL: Abdomen soft, non-tender, nondistended. BS normal. MUSCULOSKELETAL: Extremities without clubbing, cyanosis, or edema. No obvious deformities. 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 LLE chronic ischemia, no signs of infection. NEUROLOGICAL: Awake, alert and oriented x4. No focal neurologic deficits. Moving both upper and lower extremities spontaneously. Laboratory Laboratory Tests Test 10/12/16 10/12/16 17:16 17:40 White Blood Count 9.0 Red Blood Count 3.48 Hemoglobin 8.4 Hematocrit 26.3 Mean Corpuscular Volume 75.6 Mean Corpuscular Hemoglobin 24.0 Mean Corpuscular Hemoglobin 31.8 Concent Red Cell Distribution Width 18.1 Platelet Count 293 Mean Platelet Volume 7.7 Neutrophils (%) (Auto) 78.5 Lymphocytes (%) (Auto) 8.8 Monocytes (%) (Auto) 11.4 Eosinophils (%) (Auto) 1.1 Basophils (%) (Auto) 0.2 Neutrophils # (Auto) 7.1 Lymphocytes # (Auto) 0.8 Monocytes # (Auto) 1.0 Eosinophils # (Auto) 0.1 Basophils # (Auto) 0.0 CBC Comment AUTO DIFF Sodium Level 141 Potassium Level 4.7 Chloride Level 106 Carbon Dioxide Level 26.9 Anion Gap 8 Blood Urea Nitrogen 28 Creatinine 0.99 Estimat Glomerular Filtration 53 Rate Random Glucose 121 Calcium Level 8.7 Total Bilirubin 0.3 Aspartate Amino Transf 28 (AST/SGOT) Alanine Aminotransferase 19 (ALT/SGPT) Alkaline Phosphatase 74 Troponin I LESS THAN 0.02 B-Type Natriuretic Peptide 391 Total Protein 5.8 Albumin 1.8 Urine Color LIGHT-YELLOW Urine Turbidity CLEAR Urine pH 5.0 Urine Specific [place] 1.009 Urine Protein NEG Urine Glucose (UA) NEG Urine Ketones NEG Urine Occult Blood NEG Urine Nitrite NEG Urine Bilirubin NEG Urine Urobilinogen LESS THAN 2.0 Urine Leukocyte Esterase NEG Urine RBC 1 Urine WBC 1 Urine Hyaline Casts 5 Urine Mucus FEW Microscopic Urinalysis Comment CULT NOT INDICATED Result Diagram: 10/12/16171510/12/161715 Assessment and Plan Problem List: (1) GI bleed ICD Code: K92.2 Status: Acute (2) Generalized weakness ICD Code: R53.1 Status: Acute (3) UTI (urinary tract infection) ICD Code: N39.0 Status: Acute (4) A-fib ICD Code: I48.91 Status: Acute (5) COPD (chronic obstructive pulmonary disease) ICD Code: J44.9 Status: Chronic (6) HTN (hypertension) ICD Code: I10 Status: Chronic (7) DM (diabetes mellitus) ICD Code: E11.9 Status: Chronic Assessment and Plan A/P: 1. GI Bleed: w/ Symptomatic Anemia and generalized weakness. Hgb 8.4, previously 10.1 on 10/10/16, +Hemoccult. On ASA per review of home medications, will hold. S/p Protonix IV and started on Protonix gtt in ER. Recent admit w/ eval by Dr. Arguelles for Constipation, will re-consult for eval of GI Bleed. Telemetry, repeat labs. Type & Screen. Transfuse as needed. 2. Generalized Weakness: Likely multifactorial-recent hospitalization, physical deconditioning, UTI and now GI Bleed w/ symptomatic anemia. IVF for hydration, PT for eval/tx. 3. UTI: Recurrent. U/c 09/19/16 +Klebsiella s/p IV Abx. U/c 10/06/16 +Zee Albicans on Fluconazole 100mg qd for 14 days, will resume Fluconazole. U/a negative at this time. 4. A-fib: Chronic. Rate-controlled. Resume home Metoprolol and Diltiazem. Hold ASA in light of GI Bleed. 5. COPD: Chronic Respiratory Failure. Stable. Reports non-productive cough. CXR w/ bibasilar patchiness, images reviewed by me, however afebrile, no leukocytosis. Will hold off on antibiotics for now as no clear infection. DuoNeb prn. 6. HTN: Controlled. BP 119/59, HR 88. Monitor closely in light of GI Bleed. Resume home meds w/ hold parameters. 7. DM: Sliding scale w/ Accu-Cheks. Hold Metformin. 8. DVT Prophylaxis: Pharmacologic contraindication secondary to GI Bleed. 9. Social work for d/c planning as needed. 10. Case discussed w/ ER physician at length. Physician Certification 2 Midnight Certification Type: Admission for Inpatient Services Order for Inpatient Services The services are ordered in accordance with Medicare regulations or non- Medicare payer requirements, as applicable. In the case of services not specified as inpatient-only, they are appropriately provided as inpatient services in accordance with the 2-midnight benchmark. Estimated LOS (days): 2 days is the estimated time the patient will need to remain in the hospital, assuming treatment plan goals are met and no additional complications. Post-Hospital Plan: Not yet determined Problem Qualifiers (1) GI bleed: Qualified Code: K92.2 - Gastrointestinal hemorrhage, unspecified gastrointestinal hemorrhage type Colette Diego MD Oct 12, 2016 19:09
[2016-10-12] MEDS ORDERED: SODIUM CHLORIDE 0.9% FLUSH 5 ML FLUSH FLUSH PRN (19:15)
[2016-10-12] MEDS ORDERED: PANTOPRAZOLE INJ 80 MG in SODIUM CHLORIDE 0.9% INJ 35 ML IV ONE (19:15)
[2016-10-12] MEDS ORDERED: BISACODYL 10 MG SUPP PR PRN (19:15)
[2016-10-12] MEDS ORDERED: AMITRIPTYLINE HCL 75 MG TAB PO SCH (19:15)
[2016-10-12] MEDS: PANTOPRAZOLE INJ 80 MG in SODIUM CHLORIDE 0.9% INJ 100 ML IV SCH (19:24)
[2016-10-12] MEDS: SODIUM CHLOR 0.9% 1000 ML INJ 1,000 ML IV SCH (19:24)
[2016-10-12 19:25] VITALS: BP 119/59; PULSE 88; RESP 18; O2SAT 96
[2016-10-12] MEDS: SODIUM CHLORIDE 0.9% FLUSH 5 ML FLUSH FLUSH SCH (19:25)
[2016-10-12] MEDS ORDERED: DEXTROSE 50% IN WATER 50 ML VIAL(D50) IV PUSH PRN (19:30)
[2016-10-12] MEDS ORDERED: GLUCAGON 1 MG/ML VIAL OTHER PRN (19:30)
[2016-10-12 19:34] LABS: BANDS 5 % (0-6); EOSINOPHILS 4 % (0-4); MYELOCYTES 2 % (0-0); NEUTROPHIL # MANUAL DIFF 6.9 TH/MM3 (1.8-7.7); POLYS (SEG NEUTROPHILS) 70 % (16-70); WBC DIFF SAMPLE 100
[2016-10-12 19:35] LABS: PLATELET ESTIMATE SMEAR NORMAL (NORMAL); PLATELET MORPHOLOGY NORMAL (NORMAL); SCAN/DIFF FINAL DIFF MANUAL
[2016-10-12 20:00] VITALS: BP 117/53; PULSE 87; RESP 20; TEMP 97.3; O2SAT 94
[2016-10-12 20:11] LABS: APTT (PATIENT) 23.2 SEC (24.3-30.1); PROTHROMBIN TIME - PATIENT 11.5 SEC (9.8-11.6)
--- NOTE | 2016-10-12 20:36 | EKG ---
Date Performed: 10/12/2016 Time Performed: 17:43:51 PTAGE: 86 years EKG: ATRIAL FIBRILLATION LOW QRS VOLTAGE IN EXTREMITY LEADS POSSIBLE INFERIOR MYOCARDIAL INFARCT ION ABNORMAL ECG PREVIOUS TRACING : 10/06/2016 19.40 No significant change from previous tracing noted. DOCTOR: Carlo Mario Interpretating Date/Time 10/12/2016 20:35:02
[2016-10-12] MEDS: INSULIN ASPART SUPPLEMENTAL SCALE SQ SCH (21:00)
[2016-10-12 21:07] LABS: MEAN CORPUSCULAR HGB CONC 29.5 % (32.0-36.0)
[2016-10-12 22:00] VITALS: PULSE 70
[2016-10-12] MEDS: guaiFENesin E.R. 600 MG TAB PO SCH (22:09)
[2016-10-12] MEDS: METOPROLOL TARTRATE 100 MG TAB PO SCH (22:09)
[2016-10-12] MEDS: ATORVASTATIN 10 MG TAB PO SCH (22:09)
[2016-10-12] MEDS: ACETAMINOPHEN 325 MG TAB PO PRN (22:09)
[2016-10-13] VITALS (7 sets, daily range): BP systolic 119–154; BP diastolic 53–79; PULSE 86–114; RESP 17–22; TEMP 95.7–97.7; O2SAT 93–99
[2016-10-13] MEDS: PANTOPRAZOLE INJ 80 MG in SODIUM CHLORIDE 0.9% INJ 100 ML IV SCH ×2 (04:49→15:27)
[2016-10-13] MEDS: SODIUM CHLOR 0.9% 1000 ML INJ 1,000 ML IV SCH ×2 (04:50→15:28)
[2016-10-13] MEDS: INSULIN ASPART SUPPLEMENTAL SCALE SQ SCH ×4 (06:17→20:10)
[2016-10-13 06:53] LABS: AUTOMATED NEUTROPHIL # 7.1 TH/MM3 (1.8-7.7); BASOPHIL % 0.2 % (0.0-2.0); EOSINOPHIL # 0.2 TH/MM3 (0-0.4); EOSINOPHIL % 1.7 % (0.0-4.0); HEMATOCRIT 29.5 % (35.0-46.0); LYMPH % 12.2 % (9.0-44.0); LYMPHOCYTE # 1.1 TH/MM3 (1.0-4.8); MEAN CELL VOLUME 77.1 FL (80.0-100.0); MEAN CORPUSCULAR HEMOGLOBIN 22.7 PG (27.0-34.0); MONO % 10.9 % (0.0-8.0); PLATELET COUNT 290 TH/MM3 (150-450); RED BLOOD COUNT 3.82 MIL/MM3 (4.00-5.30); RED CELL DISTRIBUTION WIDTH 18.2 % (11.6-17.2); WHITE BLOOD COUNT 9.4 TH/MM3 (4.0-11.0)
[2016-10-13 07:03] LABS: ALKALINE PHOSPHATASE 85 U/L (45-117); ALT (GPT) 17 U/L (10-53); ANION GAP 10 MEQ/L (5-15); AST (GOT) 26 U/L (15-37); BICARBONATE 25.1 MEQ/L (21.0-32.0); BLOOD UREA NITROGEN 24 MG/DL (7-18); CHLORIDE 103 MEQ/L (98-107); GLOMERULAR FILTRATION RATE 65 ML/MIN (>89); POTASSIUM 4.2 MEQ/L (3.5-5.1); SODIUM (NA) 138 MEQ/L (136-145); TOTAL BILIRUBIN ADULT 0.3 MG/DL (0.2-1.0)
[2016-10-13 07:18] LABS: HEMO FLAGS AUTO DIFF
[2016-10-13] MEDS: INSULIN HUMAN NPH/R 70/30 1,000 UNITS/10 ML VIAL SQ SCH ×2 (08:00→17:00)
[2016-10-13] MEDS: guaiFENesin E.R. 600 MG TAB PO SCH ×2 (08:22→19:30)
[2016-10-13] MEDS: METOPROLOL TARTRATE 100 MG TAB PO SCH ×2 (08:22→20:10)
[2016-10-13] MEDS: POLYETHYLENE GLYCOL 17 GM PKG PO SCH (08:22)
[2016-10-13] MEDS: DILTIAZEM-CD 180 MG CAP ER PO SCH (08:22)
[2016-10-13] MEDS: ISOSORBIDE MONONITRATE 30 MG TAB PO SCH (08:23)
[2016-10-13] MEDS: FLUCONAZOLE 100 MG TAB PO SCH (08:23)
[2016-10-13] MEDS: ALLOPURINOL 100 MG TAB PO SCH (08:23)
[2016-10-13] MEDS: AMIODARONE 200 MG TAB PO SCH (08:23)
[2016-10-13] MEDS: SODIUM CHLORIDE 0.9% FLUSH 5 ML FLUSH FLUSH SCH ×2 (08:23→19:30)
[2016-10-13 10:11] LABS: BANDS 13 % (0-6); MYELOCYTES 1 % (0-0); NEUTROPHIL # MANUAL DIFF 7.9 TH/MM3 (1.8-7.7); POLYS (SEG NEUTROPHILS) 70 % (16-70); TOXIC GRANULATION 1+ (NORMAL); WBC DIFF SAMPLE 100
[2016-10-13 10:12] LABS: OVALOCYTES 1+ (NORMAL); PLATELET ESTIMATE SMEAR NORMAL (NORMAL); PLATELET MORPHOLOGY NORMAL (NORMAL); SCAN/DIFF FINAL DIFF MANUAL
[2016-10-13] MEDS ORDERED: DILTIAZEM HCL 30 MG TAB PO ONE (11:30)
--- NOTE | 2016-10-13 13:07 | HHI.PR ---
Subjective Remarks Follow up for GIB, weakness, UTI. The patient reports just feeling so weak again today. She has some shortness of breath and nonproductive cough. She does report some vague chest tightness. Denies any black tarry stools or diarrhea. Last BM was last night. Denies abdominal pain. Occasionally gets nauseous overnight however no vomiting. Objective Vitals Vital Signs Date Time Temp Pulse Resp B/P Pulse Ox O2 Delivery O2 Flow Rate FiO2 10/13/16 12:00 95.7 86 17 121/64 93 10/13/16 08:00 95.7 114 17 154/68 97 10/13/16 04:54 97.1 87 20 129/58 97 10/13/16 00:00 97.7 91 20 119/53 99 10/12/16 22:00 70 10/12/16 20:00 97.3 87 20 117/53 94 10/12/16 19:25 88 18 119/59 96 Nasal Cannula 2 10/12/16 16:20 97.7 98 16 129/71 95 I/O 10/12/16 10/12/16 10/12/16 10/13/16 10/13/16 10/13/16 07:00 15:00 23:00 07:00 15:00 23:00 Intake Total 336 ml 867 ml Output Total 1200 ml 750 ml Balance -864 ml 117 ml Intake Oral 0 ml 120 ml IV Total 336 ml 747 ml Output Urine Total 1200 ml 750 ml # Voids 0 # Bowel Movements 0 0 Result Diagram: 10/13/16 0535 10/13/16 0535 Imaging Last Impressions Chest X-Ray 10/12/16 0000 Signed Impressions: Service Date/Time: Wednesday, October 12, 2016 16:54 - CONCLUSION: 1. Bibasilar patchy densities. 2. Borderline cardiomegaly. Dmitry Chen MD Objective Remarks GENERAL: Well-developed well-nourished elderly female in [facility]. SKIN: Warm and dry. HEENT: Atraumatic. Normocephalic. Pupils equal and round. No scleral icterus. No injection or drainage. Mucous membranes pink and moist. NECK: Trachea midline. +JVD. CARDIOVASCULAR: Regular rate and rhythm. No murmur appreciated. RESPIRATORY: No accessory muscle use. Clear to auscultation. Breath sounds equal bilaterally. GASTROINTESTINAL: Abdomen soft, mild epigastric TTP, nondistended. Hepatic and splenic margins not palpable. MUSCULOSKELETAL: Extremities without clubbing, cyanosis, or edema. No obvious deformities. NEUROLOGICAL: Awake and alert. No obvious cranial nerve deficits. Motor grossly within normal limits. Normal speech. PSYCHIATRIC: Appropriate mood and affect; insight and judgment normal. Medications and IVs Current Medications Medications (Trade) Dose Ordered Sig/Marija Route Start Time Stop Time Status Last Admin Pantoprazole Sodium 80 mg/ Sodium Chloride 100 ml @ 10 mls/hr Q10H IV 10/12/16 19:15 10/13/16 04:49 (NS 1000 ml Inj) 1,000 ml @ 100 mls/hr Q10H IV 10/12/16 19:01 10/13/16 04:50 (NS Flush) 2 ml UNSCH PRN FLUSH 10/12/16 19:15 (NS Flush) 2 ml BID FLUSH 10/12/16 21:00 10/12/16 19:25 (Zofran Inj) 4 mg Q6H PRN IVP 10/12/16 19:15 (Dulcolax Supp) 10 mg DAILY PRN OK 10/12/16 19:15 (Tylenol) 650 mg Q6H PRN PO 10/12/16 19:15 10/12/16 22:09 (Morphine Inj) 2 mg Q3H PRN IV 10/12/16 19:15 (Mucinex Er) 600 mg BID PO 10/12/16 21:00 10/13/16 08:22 (Zyloprim) 100 mg DAILY PO 10/13/16 09:00 10/13/16 08:23 (Cordarone) 400 mg DAILY PO 10/13/16 09:00 10/13/16 08:23 (Lipitor) 10 mg HS PO 10/12/16 21:00 10/12/16 22:09 (Cardizem Cd) 180 mg DAILY PO 10/13/16 09:00 10/13/16 08:22 (Diflucan) 100 mg DAILY PO 10/13/16 09:00 10/13/16 08:23 (NovoLIN 70/30 INJ) 18 units BID@08,17 SQ 10/13/16 08:00 10/13/16 08:00 (Imdur) 30 mg DAILY PO 10/13/16 09:00 10/13/16 08:23 (Lopressor) 100 mg BID PO 10/12/16 21:00 10/13/16 08:22 (Miralax) 17 gm DAILY PO 10/13/16 09:00 10/13/16 08:22 (D50w (Vial) Inj) 25 ml UNSCH PRN IV PUSH 10/12/16 19:30 (Glucagon Inj) 1 mg UNSCH PRN OTHER 10/12/16 19:30 Urinary Catheter: Yes Assessment to: Continue Date of Insertion: Oct 08, 2016 A/P Problem List: (1) GI bleed ICD Code: K92.2 Status: Acute (2) Generalized weakness ICD Code: R53.1 Status: Acute (3) UTI (urinary tract infection) ICD Code: N39.0 Status: Acute (4) A-fib ICD Code: I48.91 Status: Acute (5) COPD (chronic obstructive pulmonary disease) ICD Code: J44.9 Status: Chronic (6) HTN (hypertension) ICD Code: I10 Status: Chronic (7) DM (diabetes mellitus) ICD Code: E11.9 Status: Chronic Assessment and Plan 86-year-old female with a PMH of HTN, A. fib on ASA, CHF (Echo 04/06/16 w/ EF 55- 60%), CAD, Depression, DM and COPD who presented to the ER w/ complaints of generalized weakness x3 days. Recent admit 10/06-10/10/16 for Sepsis, UTI and Constipation, s/p eval by GI and d/c'd on Fluconazole 100mg qd x14 days for Zee + Urine Cultures. States has been having weakness since discharge. GI Bleed: w/ Symptomatic Anemia and generalized weakness. Hgb 8.4, previously 10.1 on 10/10/16, +Hemoccult. On ASA per review of home medications, will hold. On Protonix gtt. Recent admit w/ eval by Dr. Arguelles for Constipation, will re-consult for eval of GI Bleed. Telemetry, repeat labs, currently Hgb 8.7. Type & Screen. Transfuse for Hgb < 8.0. Generalized Weakness: Likely multifactorial-recent hospitalization, physical deconditioning, pneumonia, UTI and now GI Bleed w/ symptomatic anemia. IVF for hydration, PT for eval/tx. Pneumonia: CXR images reviewed, shows bibasilar patchy densities. Pt with +cough , SOB, chest pains. Started on IV Levaquin. Chest Pain, atypical: possibly related to PNA. However rule out ACS with serial cardiac enzymes and EKG. ASA on hold with GIB. UTI: Recurrent. U/c 09/19/16 +Klebsiella s/p IV Abx. U/c 10/06/16 +Zee Albicans on Fluconazole 100mg qd for 14 days, continue Fluconazole. U/a negative at this time. A-fib: Chronic. Rate-controlled. Resume home Metoprolol and Diltiazem. Hold ASA in light of GI Bleed. COPD: Chronic Respiratory Failure. Stable. Reports non-productive cough. On IV Levaquin as above. DuoNeb prn. HTN: Controlled. BP 119/59, HR 88. Monitor closely in light of GI Bleed. Resume home meds w/ hold parameters. DM: Sliding scale w/ Accu-Cheks. Hold Metformin. DVT Prophylaxis: teds/SCDs. Pharmacologic contraindication secondary to GI Bleed. Written by Maureen Schuler, acting as scribe for Dr. Steve on 10/13/16 at 13: 00. The documentation accurately reflects the work performed [id number] by me, Dr. Steve on 10/13/16 at 13:00. Problem Qualifiers (1) GI bleed: Qualified Code: K92.2 - Gastrointestinal hemorrhage, unspecified gastrointestinal hemorrhage type Maureen Schuler PA-C Oct 13, 2016 13:07 Jefferson Steve MD Oct 14, 2016 02:24
[2016-10-13] MEDS: RESP: ALBUTEROL 2.5 MG/3 ML NEB (PRN) NEB ×2 (14:33→23:37)
[2016-10-13 15:23] LABS: HEMATOCRIT 27.6 % (35.0-46.0); REVIEW FLAG FINAL
[2016-10-13] MEDS: LEVOFLOXACIN 750 MG PREMIX INJ 150 ML IV SCH (15:28)
[2016-10-13] MEDS ORDERED: IPRATROPIUM INH PRN (18:00)
[2016-10-13] MEDS ORDERED: RESP: IPRATROPIUM 0.5 MG/2.5 ML NEB NEB SCH (18:00)
[2016-10-13] MEDS: ATORVASTATIN 10 MG TAB PO SCH (19:29)
[2016-10-13 19:30] LABS: HEMATOCRIT 29.5 % (35.0-46.0)
[2016-10-13] MEDS: ACETAMINOPHEN 325 MG TAB PO PRN (19:31)
[2016-10-13 19:38] LABS: REVIEW FLAG FINAL
[2016-10-13] MEDS: ONDANSETRON HCL 4 MG/2 ML VIAL IVP PRN (19:43)
--- NOTE | 2016-10-13 20:45 | MB ---
cc: RAYMOND DIAZ M.D. DATE OF CONSULTATION: 10/13/2016. REASON FOR CONSULTATION: Anemia and possible GI bleed. DATE OF : 1930. HISTORY OF PRESENT ILLNESS: This is a pleasant 86-year-old lady who was in the hospital recently and was discharged 3 days ago. The patient had general weakness and was complaining of that for 3 days. She denied any sign of active bleeding. She had been on fluconazole for Zee. She had a positive urine culture. She had productive cough, no fever or chills. Her hemoglobin was 8.4 and previously 3 days ago it was 10.1. The patient denied any GI symptoms. No sign of nausea, vomiting, hematemesis or hematochezia or black stool. REVIEW OF SYSTEMS: All 12-point negative except HPI. ALLERGIES: 1. CODEINE. 2. ATIVAN. 3. OXYCODONE. 4. DIGOXIN. PAST SURGICAL HISTORY: 1. Coronary artery disease with cardiac stent. 2. Hysterectomy. 3. Dental extraction. 4. Right below-knee amputation. 5. Cholecystectomy. PAST MEDICAL HISTORY: 1. COPD. 2. Diabetes. 3. Coronary artery disease. 4. Congestive heart failure. 5. Atrial fibrillation. 6. Hypertension. MEDICATIONS: Reviewed in the chart. She takes aspirin. FAMILY HISTORY: Noncontributory SOCIAL HISTORY: Negative for tobacco, drugs or alcohol. PHYSICAL EXAMINATION: GENERAL: Alert, oriented no acute distress. VITAL SIGNS: Stable. HEAD, EYES, EARS, NOSE, THROAT: Pupils are round and reactive to light. NECK: The neck is supple. CHEST: Clear to auscultation and precaution. CARDIAC: Irregularly irregular consistent with atrial fibrillation, heart rate less than 100. No murmur or gallop. ABDOMEN: Soft, nondistended. Positive bowel sounds. No hepatosplenomegaly and no masses. MUSCULOSKELETAL: No clubbing, cyanosis. The patient has a right below-knee amputation. NEUROLOGIC: Alert, oriented and in no acute distress. No muscular deficiency. PSYCHOLOGICAL: Appropriate. LABORATORY DATA: White count 9.4, hemoglobin 8.7, platelet 290,000. INR 1.0. Liver function tests normal. BUN 24, creatinine 0.83. ASSESSMENT AND PLAN: 86-year-old lady with anemia and possible GI bleed. The patient is absolutely refusing any procedure. She said, "this is my body and I am not going to have any endoscopy or colonoscopy. I'm old and if I from that I'm okay with that". I explained to her the procedure and complications and she still continues to refuse. I told her that she might bleed to and she still refused. So I recommend: 1. Proton pump inhibitor. 2. Blood transfusion as needed. 3. Medical management. 4. We will see the patient as needed, if she changes her mind. MD MELISSA Denis/NIDIA /11:28 AM /8:36 PM
[2016-10-13] MEDS: MORPHINE SULFATE 4 MG/ML INJ IV PRN (23:14)
[2016-10-14] VITALS: BP 117/62; PULSE 89; RESP 22; TEMP 98; O2SAT 99
[2016-10-14] MEDS: SODIUM CHLOR 0.9% 1000 ML INJ 1,000 ML IV SCH ×3 (01:01→22:24)
[2016-10-14] MEDS: PANTOPRAZOLE INJ 80 MG in SODIUM CHLORIDE 0.9% INJ 100 ML IV SCH ×3 (01:02→22:24)
[2016-10-14 01:41] LABS: HEMATOCRIT 27.8 % (35.0-46.0)
[2016-10-14 01:43] LABS: REVIEW FLAG FINAL
[2016-10-14 04:00] VITALS: BP_SYST 140; PULSE 100; RESP 20; TEMP 97.6; O2SAT 98
[2016-10-14 05:00] LABS: HEMATOCRIT 27.8 % (35.0-46.0)
[2016-10-14 05:02] LABS: REVIEW FLAG FINAL
[2016-10-14] MEDS: INSULIN ASPART SUPPLEMENTAL SCALE SQ SCH ×4 (07:00→21:00)
[2016-10-14] MEDS: RESP: ALBUTEROL 2.5 MG/3 ML NEB (PRN) NEB ×2 (07:37→16:07)
[2016-10-14 07:39] VITALS: O2SAT 97
[2016-10-14 08:00] VITALS: BP 138/65; PULSE 107; RESP 16; TEMP 95.6; O2SAT 98
[2016-10-14] MEDS: FLUCONAZOLE 100 MG TAB PO SCH (08:38)
[2016-10-14] MEDS: AMIODARONE 200 MG TAB PO SCH (08:38)
[2016-10-14] MEDS: ISOSORBIDE MONONITRATE 30 MG TAB PO SCH (08:38)
[2016-10-14] MEDS: DILTIAZEM-CD 180 MG CAP ER PO SCH (08:38)
[2016-10-14] MEDS: ALLOPURINOL 100 MG TAB PO SCH (08:38)
[2016-10-14] MEDS: METOPROLOL TARTRATE 100 MG TAB PO SCH ×2 (08:38→22:22)
[2016-10-14] MEDS: guaiFENesin E.R. 600 MG TAB PO SCH ×2 (08:38→22:22)
[2016-10-14] MEDS: SODIUM CHLORIDE 0.9% FLUSH 5 ML FLUSH FLUSH SCH ×2 (08:39→22:24)
[2016-10-14] MEDS: INSULIN HUMAN NPH/R 70/30 1,000 UNITS/10 ML VIAL SQ SCH ×2 (08:39→18:01)
[2016-10-14] MEDS: POLYETHYLENE GLYCOL 17 GM PKG PO SCH (08:40)
--- NOTE | 2016-10-14 13:35 | EKG ---
Date Performed: 10/13/2016 Time Performed: 14:19:56 PTAGE: 86 years EKG: ATRIAL FIBRILLATION INFERIOR MYOCARDIAL INFARCTION , PROBABLY OLD ABNORMAL ECG Compared to prior tracing no significant change PREVIOUS TRACING : 10/12/2016 17.43 DOCTOR: Alex Colbert Interpretating Date/Time 10/14/2016 13:33:25
[2016-10-14] MEDS: LEVOFLOXACIN 750 MG PREMIX INJ 150 ML IV SCH (15:46)
[2016-10-14 15:58] LABS: HEMATOCRIT 26.2 % (35.0-46.0)
[2016-10-14 16:02] LABS: REVIEW FLAG FINAL
[2016-10-14] MEDS: MORPHINE SULFATE 4 MG/ML INJ IV PRN ×2 (18:12→22:23)
[2016-10-14 20:00] VITALS: BP 133/64; PULSE 88; RESP 20; TEMP 96.7; O2SAT 97
[2016-10-14 20:45] VITALS: PULSE 96
[2016-10-14 21:03] LABS: MEAN CORPUSCULAR HGB CONC 29.5 % (32.0-36.0)
[2016-10-14 21:06] LABS: HEMATOCRIT 26.2 % (35.0-46.0)
[2016-10-14 21:12] LABS: REVIEW FLAG FINAL
[2016-10-14] MEDS: ATORVASTATIN 10 MG TAB PO SCH (22:22)
--- NOTE | 2016-10-14 23:03 | HHI.PR ---
Subjective Remarks Patient says her fatigue is improving. Eating well. She still reports chest pressure. She says that she would not want invasive intervention or surgery. No bleeding Objective Vital Signs Date Time Temp Pulse Resp B/P Pulse Ox O2 Delivery O2 Flow Rate FiO2 10/14/16 20:00 96.7 88 20 133/64 97 10/14/16 08:00 95.6 107 16 138/65 98 10/14/16 07:39 97 Nasal Cannula 3.00 10/14/16 04:00 97.6 100 20 140/ 98 10/14/16 00:00 98.0 89 22 117/62 99 I/O 10/13/16 10/13/16 10/13/16 10/14/16 10/14/16 10/14/16 07:00 15:00 23:00 07:00 15:00 23:00 Intake Total 867 ml 220 ml 1733 ml 1354 ml 981 ml Output Total 750 ml 400 ml 200 ml 125 ml Balance 117 ml -180 ml 1533 ml 1229 ml 981 ml Intake Oral 120 ml 220 ml 120 ml 240 ml IV Total 747 ml 1613 ml 1114 ml 981 ml Output Urine Total 750 ml 400 ml 200 ml 125 ml # Bowel Movements 0 0 0 0 Result Diagram: 10/14/16204210/13/16 0535 Objective Remarks GENERAL: patient sitting up in bed. Appears comfortable. Alert and oriented 3. SKIN: Warm and dry. HEAD: Normocephalic. EYES: No scleral icterus. No injection or drainage. NECK: Supple, trachea midline. No JVD . CARDIOVASCULAR: Regular rate and rhythm without murmurs, gallops, or rubs. RESPIRATORY: Breath sounds equal bilaterally. No accessory muscle use. GASTROINTESTINAL: Abdomen soft, non-tender, nondistended. MUSCULOSKELETAL: No cyanosis, or edema. BACK: Nontender without obvious deformity. No CVA tenderness. A/P Assessment and Plan 10/14 Hemoglobin low 8.0 but stable. Iron studies ordered and pending [facility] to [facility] of severe mitral regurg. Patient does not want any invasive interventions. Medical management. 86-year-old female with a PMH of HTN, A. fib on ASA, CHF (Echo 04/06/16 w/ EF 55- 60%), CAD, Depression, DM and COPD who presented to the ER w/ complaints of generalized weakness x3 days. Recent admit 10/06-10/10/16 for Sepsis, UTI and Constipation, s/p eval by GI and d/c'd on Fluconazole 100mg qd x14 days for Zee + Urine Cultures. States has been having weakness since discharge. //GI Bleed: // Symptomatic Anemia. chronic blood loss anemia from suspected GI bleed - and generalized weakness. Hgb 8.4, previously 10.1 on 10/10/16, +Hemoccult. On ASA per review of home medications, will hold. On Protonix gtt. Recent admit w/ eval by Dr. Arguelles for Constipation, will re-consult for eval of GI Bleed. Telemetry, repeat labs, currently Hgb 8.7. Type & Screen. Transfuse for Hgb < 8.0. -pt refuses GI workup. cont to monitor Generalized Weakness: Likely multifactorial-recent hospitalization, physical deconditioning, pneumonia, UTI and now GI Bleed w/ symptomatic anemia. IVF for hydration, PT for eval/tx. Pneumonia: CXR images reviewed, shows bibasilar patchy densities. Pt with +cough , SOB, chest pains. Started on IV Levaquin. Chest Pain, atypical: possibly related to PNA. However rule out ACS with serial cardiac enzymes and EKG. ASA on hold with GIB. UTI: Recurrent. U/c 09/19/16 +Klebsiella s/p IV Abx. U/c 10/06/16 +Zee Albicans on Fluconazole 100mg qd for 14 days, continue Fluconazole. U/a negative at this time. A-fib: Chronic. Rate-controlled. Resume home Metoprolol and Diltiazem. Hold ASA in light of GI Bleed. COPD: Chronic Respiratory Failure. Stable. Reports non-productive cough. On IV Levaquin as above. DuoNeb prn. HTN: Controlled. BP 119/59, HR 88. Monitor closely in light of GI Bleed. Resume home meds w/ hold parameters. DM: Sliding scale w/ Accu-Cheks. Hold Metformin. DVT Prophylaxis: teds/SCDs. Pharmacologic contraindication secondary to GI Bleed. Discharge Planning discharge in 1-2 days if stable Jefferson Steve MD Oct 14, 2016 23:03
[2016-10-15] VITALS (8 sets, daily range): BP systolic 123–156; BP diastolic 60–80; PULSE 88–110; RESP 16–20; TEMP 95.7–98.2; O2SAT 93–97
[2016-10-15] MEDS: PANTOPRAZOLE INJ 80 MG in SODIUM CHLORIDE 0.9% INJ 100 ML IV SCH ×2 (05:39→09:33)
[2016-10-15 05:51] LABS: ANION GAP 10 MEQ/L (5-15); BICARBONATE 22.2 MEQ/L (21.0-32.0); BLOOD UREA NITROGEN 12 MG/DL (7-18); CHLORIDE 106 MEQ/L (98-107); GLOMERULAR FILTRATION RATE 79 ML/MIN (>89); POTASSIUM 4.5 MEQ/L (3.5-5.1); SODIUM (NA) 138 MEQ/L (136-145); TRANSFERRIN IRON PROFILE 193 MG/DL (200-360)
[2016-10-15] MEDS: INSULIN ASPART SUPPLEMENTAL SCALE SQ SCH ×4 (05:54→21:00)
[2016-10-15 06:02] LABS: FERRITIN 46 NG/ML (8-252)
[2016-10-15 06:26] LABS: AUTOMATED NEUTROPHIL # 6.8 TH/MM3 (1.8-7.7); BASOPHIL % 0.3 % (0.0-2.0); EOSINOPHIL # 0.1 TH/MM3 (0-0.4); HEMATOCRIT 30.9 % (35.0-46.0); LYMPH % 11.1 % (9.0-44.0); MEAN CELL VOLUME 78.4 FL (80.0-100.0); MEAN CORPUSCULAR HEMOGLOBIN 23.1 PG (27.0-34.0); MONO % 8.1 % (0.0-8.0); NEUT % 79.5 % (16.0-70.0); PLATELET COUNT 285 TH/MM3 (150-450); RED BLOOD COUNT 3.94 MIL/MM3 (4.00-5.30); RED CELL DISTRIBUTION WIDTH 19.2 % (11.6-17.2); WHITE BLOOD COUNT 8.6 TH/MM3 (4.0-11.0)
[2016-10-15 06:27] LABS: HEMO FLAGS AUTO DIFF
[2016-10-15 08:21] LABS: SCAN/DIFF AUTO DIFF CONFIRMED
[2016-10-15] MEDS: ALLOPURINOL 100 MG TAB PO SCH (09:00)
[2016-10-15] MEDS: SODIUM CHLORIDE 0.9% FLUSH 5 ML FLUSH FLUSH SCH ×2 (09:00→22:32)
[2016-10-15] MEDS: INSULIN HUMAN NPH/R 70/30 1,000 UNITS/10 ML VIAL SQ SCH ×2 (09:33→17:00)
[2016-10-15] MEDS: guaiFENesin E.R. 600 MG TAB PO SCH ×2 (09:34→22:31)
[2016-10-15] MEDS: POLYETHYLENE GLYCOL 17 GM PKG PO SCH (09:34)
[2016-10-15] MEDS: METOPROLOL TARTRATE 100 MG TAB PO SCH ×2 (09:35→22:32)
[2016-10-15] MEDS: ISOSORBIDE MONONITRATE 30 MG TAB PO SCH (09:35)
[2016-10-15] MEDS: AMIODARONE 200 MG TAB PO SCH (09:35)
[2016-10-15] MEDS: FLUCONAZOLE 100 MG TAB PO SCH (09:35)
[2016-10-15] MEDS: DILTIAZEM-CD 180 MG CAP ER PO SCH (09:35)
[2016-10-15] MEDS: ONDANSETRON HCL 4 MG/2 ML VIAL IVP PRN ×2 (09:36→18:56)
[2016-10-15] MEDS: MORPHINE SULFATE 4 MG/ML INJ IV PRN ×3 (09:36→22:33)
--- NOTE | 2016-10-15 11:05 | HHI.PR ---
Subjective Remarks Has nausea today. Still has chest pressure, SOB, and fatigue. Did not sleep well due to this. 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 Currently not agreeable for cardiology evaluation. Not currently oriented to time. Patient states her daughter helps her make decisions. Poor appetite. Last BM 2 days ago. Still refuses GI work up. Agrees for palliative evaluation. Has O2 at home. Granddaughter helps take care of her at home. Objective Vitals Vital Signs Date Time Temp Pulse Resp B/P Pulse Ox O2 Delivery O2 Flow Rate FiO2 10/15/16 08:30 98.2 98 18 125/68 96 10/15/16 04:00 Nasal Cannula 3.00 10/15/16 04:00 97.3 96 20 156/70 95 10/15/16 00:00 97.1 88 18 140/68 97 10/15/16 00:00 Nasal Cannula 3.00 10/14/16 21:35 96 Nasal Cannula 2.00 10/14/16 20:45 96 10/14/16 20:00 Nasal Cannula 3.00 10/14/16 20:00 96.7 88 20 133/64 97 I/O 10/14/16 10/14/16 10/14/16 10/15/16 10/15/16 10/15/16 07:00 15:00 23:00 07:00 15:00 23:00 Intake Total 1354 ml 981 ml 870 ml 363 ml Output Total 125 ml 300 ml 1000 ml Balance 1229 ml 981 ml 570 ml -637 ml Intake Oral 240 ml 120 ml 240 ml IV Total 1114 ml 981 ml 750 ml 123 ml Output Urine Total 125 ml 300 ml 1000 ml # Bowel Movements 0 0 0 Result Diagram: 10/15/16 0515 10/15/16 0515 Imaging Last Impressions Chest X-Ray 10/12/16 0000 Signed Impressions: Service Date/Time: Wednesday, October 12, 2016 16:54 - CONCLUSION: 1. Bibasilar patchy densities. 2. Borderline cardiomegaly. Dmitry Chen MD Objective Remarks GENERAL: Well-developed well-nourished. In no acute distress. Not oriented to time. SKIN: Warm and dry. No lesions noted. HEENT: Normocephalic. Pupils equal and round. Mucous membranes pink and moist. CARDIOVASCULAR: Regular rate and rhythm. No murmur appreciated. RESPIRATORY: No accessory muscle use. Clear to auscultation. Breath sounds equal bilaterally. GASTROINTESTINAL: Abdomen soft, epigastric TTP, nondistended. Bowel sounds x4. MUSCULOSKELETAL: Right AKA. No clubbing or cyanosis. No edema. NEUROLOGICAL: Awake and alert. No focal neurological deficits. Moves upper and lower extremities spontaneously. Normal speech. PSYCHIATRIC: Slightly depressed mood and labile affect; insight and judgment fair. Date of Insertion: Oct 08, 2016 A/P Problem List: (1) GI bleed ICD Code: K92.2 Status: Acute (2) Generalized weakness ICD Code: R53.1 Status: Acute (3) UTI (urinary tract infection) ICD Code: N39.0 Status: Acute (4) A-fib ICD Code: I48.91 Status: Acute (5) COPD (chronic obstructive pulmonary disease) ICD Code: J44.9 Status: Chronic (6) HTN (hypertension) ICD Code: I10 Status: Chronic (7) DM (diabetes mellitus) ICD Code: E11.9 Status: Chronic Assessment and Plan 86-year-old female with a PMH of HTN, A. fib on ASA, CHF (Echo 04/06/16 w/ EF 55- 60%), CAD, Depression, DM and COPD who presented to the ER w/ complaints of generalized weakness x3 days. Recent admit 10/06-10/10/16 for Sepsis, UTI and Constipation, s/p eval by GI and d/c'd on Fluconazole 100mg qd x14 days for Zee + Urine Cultures. States has been having weakness since discharge. GI Bleed: w/ Symptomatic Anemia and generalized weakness. Possible underlying ulcer. Hgb 8.4, previously 10.1 on 10/10/16, +Hemoccult. On ASA per review of home medications, will hold. Change Protonix gtt to IV Protonix twice daily. Consulted GI, Dr. Arguelles, patient declines any GI intervention. Hemoglobin has remained stable. Transfuse for Hgb < 8.0. Check lipase with epigastric pain. Generalized Weakness: Likely multifactorial-recent hospitalization, physical deconditioning, pneumonia, UTI, MR and now GI Bleed w/ symptomatic anemia. IVF for hydration, PT for eval/tx. Patient declines any aggressive intervention, although not completely oriented at this time, consult palliative care. Pneumonia: CXR shows bibasilar patchy densities. Pt with +cough, SOB, chest pains. Started on IV Levaquin. Chest Pain, atypical: possibly related to PNA vs anemia vs mitral regurgitation seen on previous echocardiogram. Troponin negative 2. ASA on hold with GIB. 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 UTI: Recurrent. U/c 09/19/16 +Klebsiella s/p IV Abx. U/c 10/06/16 +Zee Albicans on Fluconazole 100mg qd for 14 days, continue Fluconazole. U/a negative at this time. A-fib: Chronic. Rate-controlled. Resume home Metoprolol and Diltiazem. Hold ASA in light of GI Bleed. COPD: Chronic Respiratory Failure on home O2. Stable. Reports non-productive cough. On IV Levaquin as above. DuoNeb prn. HTN: Controlled. BP 119/59, HR 88. Monitor closely in light of GI Bleed. Continue home meds w/ hold parameters. DM: Sliding scale w/ Accu-Cheks. Holding Metformin. DVT Prophylaxis: teds/SCDs. Pharmacologic contraindication secondary to GI Bleed. Written by Lance Tan, acting as scribe for Dr. Steve on 10/15/16 at 11:05. Discharge Planning The patient is still with symptoms, but declines workup. She would like to go home, but is not completely oriented. We will need to touch base with her family. Await palliative care recommendations. Attending Statement The documentation accurately reflects the work performed [id number] by me, Dr. Steve on 10/15/16 at 11:05. Problem Qualifiers (1) GI bleed: Qualified Code: K92.2 - Gastrointestinal hemorrhage, unspecified gastrointestinal hemorrhage type Lance Tan Oct 15, 2016 11:05 Jefferson Steve MD Oct 21, 2016 00:45
[2016-10-15] MEDS: LEVOFLOXACIN 750 MG PREMIX INJ 150 ML IV SCH (15:00)
--- NOTE | 2016-10-15 15:17 | PD.CONS ---
Consult Service Palliative Care Consult Requested By Jefferson Steve MD. Primary Care Physician Lon Kothari MD Reason for Consultation a. To assist with evaluation and management of symptoms including: Debility. b. To assist medical decision maker(s) with: better understanding of current medical conditions; weighing benefits/burdens of medical treatment options; making medical treatment decisions. . HPI History of Present Illness Mrs. Feldman is an 86-year-old female with a medical history of multiple acute hospitalizations and ED visits within the last 24 months, CHF, COPD, A. fib, hypertension, diabetes mellitus type 2, CAD and chronic constipation. Patient presented to the ED on 10/12/16 endorsing flulike symptoms to include body weakness and nonproductive cough for the prior 2-3 days. Patient was discharge home from a previous hospitalization on 10/10/16 secondary to UTI/sepsis and constipation. She was noted that her hemoglobin dropped to 8.4 from 10.1 on last admission, as well as positive Hemoccult. Chest x-ray showing bibasilar patchy densities. UA negative. Patient was started on Protonix drip and was admitted for further evaluation and management. EKG obtained on 10/13/16 showing atrial fibrillation and probably old inferior myocardial infarction. GI -Dr. Arguelles consulted on 10/13/16 for evaluation of anemia and possible GI bleed. Patient declined any GI workup to include endoscopy or colonoscopy. Medical management was recommended in the setting of her refusal. Patient remains hospitalized, endorsing nausea, chest pressure, shortness of breath and fatigue. Poor appetite, not amenable to cardiology evaluation. Continue refusing GI workup. Palliative care has been consulted to clarify goals of care in the setting of patient's refusal of medical workup, age, multiple comorbidities, and multiple recent acute hospitalizations. Reviewed medical records, this is patient's third acute hospitalization this year. Hospitalized twice this year secondary to UTI/sepsis. Patient was discharged home under the care of her daughter and granddaughter. Patient last year was hospitalized a total of 5 times from May 2016 to June 2016. Reasons ranging from A. fib with RVR, pain, COPD, acute kidney injury, and CHF exacerbation. She also visited the emergency room in 2015 a total of 11 times for multiple reasons including nausea, vomiting, UTI, abdominal pain, and possible dementia. In 2014 patient visited the emergency room a total of 8 times, with 2 of them resulting in acute hospitalization. Echocardiogram on 04/06/16 revealing ejection fraction of 55-60%. Moderate to severe mitral and tricuspid regurgitation. Patient was seen by psychiatry -Dr. Roman on prior admission on June 18, 2016. No history of any prior psychiatric history. At that time, patient was brought to the ED on after having an argument with her granddaughter. Psychotic evaluation completed and she did not present with depressive symptoms, anxiety or perceptual disturbances/no signs or symptoms of psychosis. She did not meet criteria for psychiatric admission on act was lifted. She was oriented 3 and was found to have a good insight and judgment. Patient seen in her room, she was laying in bed in no acute distress. Patient alert and oriented 3, verbal and able to communicate needs. Patient endorsing intermittent chest discomfort/pressure exacerbated with exertion and alleviated with rest. Reporting some intermittent nausea for the last 2-3 days. Denies any acute pain or shortness of breath. Patient tells me that she has been very sick for the last 2 years or so. She reports that all of her prior hospitalizations and ED visits were secondary to being sick and not feeling well. She tells me that she has been feeling so bad that she had no other option of returning to the hospital for symptom management. Discussed events leading to these last hospitalization, reviewed concerns of GI bleed and current medical management. Patient reports that she decline endoscopy and colonoscopy because "I am 86 years old and I just want to be let alone". Discussed CPR, intubation and mechanical ventilation in the event of cardiac or respiratory arrest. Patient electing to be a no code -DNR/DNI and to be allowed to naturally and with dignity. Patient verbalize awareness of her limited life expectancy and her goal is to stay home for as long as she can, she tells me that she is tired of coming to the hospital. Introduce hospice philosophy and benefits. Patient familiar with hospice services. Discussed goals of therapy to include comfort directed care versus continuation of aggressive care. Patient electing to transition to comfort directed care with hospice services with the goal adequate symptom management for an improved quality of life for whatever time she has left and avoid future hospitalizations. Patient very appreciative of today's visit. Hospice consult has been placed. Telephone conversation with patient's daughter Veronica Meyer. Medical update provided. Discussed concerns regarding GI bleed in patients decline of GI workup. Discuss patient's wishes of returning home and avoid future hospitalizations . Review patient's election of DNR/DNI and allowed a natural . Daughter verbalized being fully supportive of her mother's wishes. Introduce hospice philosophy and benefits. Daughter reports being very familiar with hospice at several family and friends have been under their services in the past. Daughter wishing for patient to be discharge home with hospice services for additional support. Reviewed that patient may need to be discharge to a care center for symptom management and adjustment of medications. Daughter in agreement of this plan. Assisted patient in completing designation are healthcare surrogate. Patient naming her daughter Veronica Meyer as healthcare surrogate and granddaughter Rere Guy as alternate healthcare surrogate. Case discussed with Dr. Steve. . Function/Cognitive Trajectory Wheelchair bound for the last 13 years. 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 She does not use his prosthesis to ambulate, and he uses his own public settings while on her wheelchair so she does not looks like she only has one leg. She resides with with her granddaughter, and daughters and teenage son. . Review of Systems Constitutional: COMPLAINS OF: Fatigue, Change in appetite, Generalized weakness Endocrine: DENIES: Heat/cold intolerance Eyes: COMPLAINS OF: Vision loss, DENIES: Blurred vision Ears, nose, mouth, throat: DENIES: Hearing loss, Nasal discharge, Running Nose Respiratory: COMPLAINS OF: Cough, Shortness of breath Cardiovascular: COMPLAINS OF: Chest pain, Dyspnea on Exertion Gastrointestinal: COMPLAINS OF: Nausea, DENIES: Difficulty Swallowing Genitourinary: DENIES: Urinary frequency Musculoskeletal: COMPLAINS OF: Stiffness Integumentary: DENIES: Abnormal pigmentation, Rash Hematologic/Lymphatics: COMPLAINS OF: Bruising Immunologic/Allergic: DENIES: Eczema Neurologic: COMPLAINS OF: Abnormal gait Psychiatric: DENIES: Anxiety, Mood changes, Hallucinations, Agitation Past Family Social History Coded Allergies: Digoxin (Verified Allergy, Severe, BLURRY VISION, 10/12/16) Oxycodone (Verified Allergy, Severe, Anaphylaxis, 10/12/16) Ativan (Verified Adverse Reaction, Severe, "makes me crazy", 10/12/16) Codeine (Verified Adverse Reaction, Severe, "makes me crazy", 10/12/16) Past Medical History COPD A. fib Hypertension CAD Diabetes mellitus type 2 CHF, Echo 04/06/16 w/ EF 55-60% Chronic constipation History of frequent UTIs Depression . Past Surgical History Cholecystectomy Cardiac Stent Hysterectomy Dental Extraction Right BKA . Reported Medications Miralax Powder (Polyethylene Glycol 3350 Powder) 17 Gm Powd 17 Gm PO DAILY Diflucan (Fluconazole) 100 Mg Tab 100 Mg PO DAILY Diltiazem CD 24 HR 180 Mg Caper 180 Mg PO DAILY Glucophage (Metformin HCl) 500 Mg Tab 500 Mg PO BIDPC Amiodarone (Amiodarone HCl) 200 Mg Tab 400 Mg PO DAILY Novolin 70-30 Inj (Insulin Human Isoph/Insulin Regular) 1,000 Unit/10 Ml Vial 18 Units SQ BID@ Lopressor (Metoprolol Tartrate) 100 Mg Tab 100 Mg PO BID Amitriptyline (Amitriptyline HCl) 75 Mg Tab 75 Mg PO ONCE Aspirin 81 Mg Tabdr 81 Mg PO DAILY Allopurinol 100 Mg Tab 100 Mg PO DAILY Atorvastatin (Atorvastatin Calcium) 10 Mg Tab 10 Mg PO HS Atrovent HFA 12.9 GM Inh (Ipratropium [place]) 17 Mcg/Act Aer 1 Puff INH DIRECTED PRN Isosorbide Mononitrate ER (Isosorbide Mononitrate) 30 Mg Alejandro 30 Mg PO DAILY . Current Medications Medications (Trade) Dose Ordered Sig/Marija Route Start Time Stop Time Status Last Admin (NS Flush) 2 ml UNSCH PRN FLUSH 10/12/16 19:15 (NS Flush) 2 ml BID FLUSH 10/12/16 21:00 10/14/16 22:24 (Zofran Inj) 4 mg Q6H PRN IVP 10/12/16 19:15 10/15/16 09:36 (Dulcolax Supp) 10 mg DAILY PRN NE 10/12/16 19:15 (Tylenol) 650 mg Q6H PRN PO 10/12/16 19:15 10/13/16 19:31 (Morphine Inj) 2 mg Q3H PRN IV 10/12/16 19:15 10/15/16 09:36 (Mucinex Er) 600 mg BID PO 10/12/16 21:00 10/15/16 09:34 (Zyloprim) 100 mg DAILY PO 10/13/16 09:00 10/15/16 09:00 (Cordarone) 400 mg DAILY PO 10/13/16 09:00 10/15/16 09:35 (Lipitor) 10 mg HS PO 10/12/16 21:00 10/14/16 22:22 (Cardizem Cd) 180 mg DAILY PO 10/13/16 09:00 10/15/16 09:35 (Diflucan) 100 mg DAILY PO 10/13/16 09:00 10/15/16 09:35 (NovoLIN 70/30 INJ) 18 units BID@08,17 SQ 10/13/16 08:00 10/15/16 09:33 (Imdur) 30 mg DAILY PO 10/13/16 09:00 10/15/16 09:35 (Lopressor) 100 mg BID PO 10/12/16 21:00 10/15/16 09:35 (Miralax) 17 gm DAILY PO 10/13/16 09:00 10/15/16 09:34 (D50w (Vial) Inj) 25 ml UNSCH PRN IV PUSH 10/12/16 19:30 Glucagon 1 mg 1 mg UNSCH PRN OTHER 10/12/16 19:30 (Levaquin 750 Mg Premix Inj) 150 ml @ 100 mls/hr Q24H IV 10/13/16 15:00 10/14/16 15:46 Patient Own Medication PT OWN MED: ATROV... Q8H PRN INH 10/13/16 18:00 Hold (Protonix Inj) 40 mg Q12HR IV PUSH 10/15/16 21:00 (Ferrous Sulfate) 325 mg DAILY PO 10/16/16 09:00 Family History Hypertension and diabetes type 2 in multiple family members. . Substance Use Tobacco: Smokes 2-3 cigarettes daily. Alcohol: Denies use. Prescription med abuse: Denies use. Illicits: Denies use. . Psychosocial History Patient is retired. She is . She resides with her granddaughter and her family. Patient had 4 children, her son is . Daughter Deepthi lives in [place], daughter Colleen lives in [place], and daughter Veronica resides locally. Patient has been twice and is . She did not finish high school. She worked in manufacturing of medical supplies. . Spiritual/Cultural Factors Hoahaoism. . Living Will: Never completed Health Care Surrogate: Copy in medical record Durable Power of Recreational Sports Director: Never completed Date completed: 10/15/16. . Health Care Surrogate(s): Patient named her daughter Veronica Meyer as healthcare surrogate, alternate granddaughter Rere Guy. . Documented care wishes: No living will completed. . Today's verbally stated goals: No code. DNR/DNI. Allow natural . Patient wishing to be discharge home with hospice services. . Family/friends goals: Same as patient. . Ethical and Legal Issues No living will has been completed. . Physical Exam Vital Signs Date Time Temp Pulse Resp B/P Pulse Ox O2 Delivery O2 Flow Rate FiO2 10/15/16 14:21 93 Nasal Cannula 2.00 10/15/16 12:30 96.7 110 16 139/66 93 10/15/16 08:30 98.2 98 18 125/68 96 10/15/16 04:00 Nasal Cannula 3.00 10/15/16 04:00 97.3 96 20 156/70 95 10/15/16 00:00 97.1 88 18 140/68 97 10/15/16 00:00 Nasal Cannula 3.00 10/14/16 21:35 96 Nasal Cannula 2.00 10/14/16 20:45 96 10/14/16 20:00 Nasal Cannula 3.00 10/14/16 20:00 96.7 88 20 133/64 97 10/14/16 10/15/16 19:00 07:00 Intake Total 981 ml 1233 ml Output Total 1300 ml Balance 981 ml -67 ml Intake Oral 360 ml IV Total 981 ml 873 ml Output Urine Total 1300 ml # Bowel Movements 0 Exam CONSTITUTIONAL/GENERAL: This is an elderly lady in no apparent distress. Alert and oriented 3 and able to communicate her needs. TUBES/LINES/DRAINS: PIV's, SCDs, so cannula. SKIN: No jaundice, rashes, or lesions. Ecchymoses on upper extremities. No wounds seen anteriorly. Skin temperature appropriate. Not diaphoretic. Stasis dermatitis to left lower extremity. Several toes on left with scabs, appears secondary to peripheral vascular disease. HEAD: Atraumatic. Normocephalic. EYES: Pupils equal and round and reactive. No scleral icterus. No injection or drainage. ENT: Hearing grossly normal. Nose without bleeding or purulent drainage. Throat without visible erythema, exudates, masses, or lesions. NECK: Trachea midline. Supple, nontender. CARDIOVASCULAR: Irregular rate and rhythm without murmurs, gallops, or rubs. No JVD. RESPIRATORY/CHEST: Symmetric, unlabored respirations. Clear to auscultation. Breath sounds equal bilaterally. No wheezes, rales, or rhonchi. GASTROINTESTINAL: Abdomen soft, round, large. Bowel sounds present. GENITOURINARY: Without palpable bladder distension. MUSCULOSKELETAL: Extremities without clubbing, cyanosis, or edema. Right below the knee amputation. NEUROLOGICAL: Awake and alert. Follows commands. Cognitively sharp. Moves all extremities. PSYCHIATRIC: No obvious anxiety/depression. Pleasant and cooperative. . Diagnostic Tests Laboratory Laboratory Tests Test 10/12/16 10/12/16 10/12/16 10/13/16 17:16 17:40 19:30 05:35 White Blood Count 9.0 TH/MM3 9.4 TH/MM3 (4.0-11.0) (4.0-11.0) Red Blood Count 3.48 MIL/MM3 3.82 MIL/MM3 (4.00-5.30) (4.00-5.30) Hemoglobin 8.4 GM/DL 8.7 GM/DL (11.6-15.3) (11.6-15.3) Hematocrit 26.3 % 29.5 % (35.0-46.0) (35.0-46.0) Mean Corpuscular Volume 75.6 FL 77.1 FL (80.0-100.0) (80.0-100.0) Mean Corpuscular Hemoglobin 24.0 PG 22.7 PG (27.0-34.0) (27.0-34.0) Mean Corpuscular Hemoglobin 31.8 % 29.5 % Concent (32.0-36.0) (32.0-36.0) Red Cell Distribution Width 18.1 % 18.2 % (11.6-17.2) (11.6-17.2) Platelet Count 293 TH/MM3 290 TH/MM3 (150-450) (150-450) Mean Platelet Volume 7.7 FL 7.9 FL (7.0-11.0) (7.0-11.0) Neutrophils (%) (Auto) 78.5 % 75.0 % (16.0-70.0) (16.0-70.0) Lymphocytes (%) (Auto) 8.8 % 12.2 % (9.0-44.0) (9.0-44.0) Monocytes (%) (Auto) 11.4 % 10.9 % (0.0-8.0) (0.0-8.0) Eosinophils (%) (Auto) 1.1 % (0.0-4.0) 1.7 % (0.0-4.0) Basophils (%) (Auto) 0.2 % (0.0-2.0) 0.2 % (0.0-2.0) Neutrophils # (Auto) 7.1 TH/MM3 7.1 TH/MM3 (1.8-7.7) (1.8-7.7) Lymphocytes # (Auto) 0.8 TH/MM3 1.1 TH/MM3 (1.0-4.8) (1.0-4.8) Monocytes # (Auto) 1.0 TH/MM3 1.0 TH/MM3 (0-0.9) (0-0.9) Eosinophils # (Auto) 0.1 TH/MM3 0.2 TH/MM3 (0-0.4) (0-0.4) Basophils # (Auto) 0.0 TH/MM3 0.0 TH/MM3 (0-0.2) (0-0.2) CBC Comment AUTO DIFF AUTO DIFF Differential Total Cells 100 100 Counted Neutrophils % (Manual) 70 % (16-70) 70 % (16-70) Band Neutrophils % 5 % (0-6) 13 % (0-6) Lymphocytes % 11 % (9-44) 11 % (9-44) Monocytes % 8 % (0-8) 5 % (0-8) Eosinophils % 4 % (0-4) Neutrophils # (Manual) 6.9 TH/MM3 7.9 TH/MM3 (1.8-7.7) (1.8-7.7) Myelocytes 2 % (0-0) 1 % (0-0) Differential Comment FINAL DIFF FINAL DIFF MANUAL MANUAL Platelet Estimate NORMAL NORMAL (NORMAL) (NORMAL) Platelet Morphology Comment NORMAL NORMAL (NORMAL) (NORMAL) Sodium Level 141 MEQ/L 138 MEQ/L (136-145) (136-145) Potassium Level 4.7 MEQ/L 4.2 MEQ/L (3.5-5.1) (3.5-5.1) Chloride Level 106 MEQ/L 103 MEQ/L (98-107) (98-107) Carbon Dioxide Level 26.9 MEQ/L 25.1 MEQ/L (21.0-32.0) (21.0-32.0) Anion Gap 8 MEQ/L (5-15) 10 MEQ/L (5-15) Blood Urea Nitrogen 28 MG/DL (7-18) 24 MG/DL (7-18) Creatinine 0.99 MG/DL 0.83 MG/DL (0.50-1.00) (0.50-1.00) Estimat Glomerular Filtration 53 ML/MIN (>89) 65 ML/MIN (>89) Rate Random Glucose 121 MG/DL 140 MG/DL (74-106) (74-106) Calcium Level 8.7 MG/DL 8.2 MG/DL (8.5-10.1) (8.5-10.1) Total Bilirubin 0.3 MG/DL 0.3 MG/DL (0.2-1.0) (0.2-1.0) Aspartate Amino Transf 28 U/L (15-37) 26 U/L (15-37) (AST/SGOT) Alanine Aminotransferase 19 U/L (10-53) 17 U/L (10-53) (ALT/SGPT) Alkaline Phosphatase 74 U/L (45-117) 85 U/L (45-117) Troponin I LESS THAN 0.02 NG/ML (0.02-0.05) B-Type Natriuretic Peptide 391 PG/ML (0-100) Total Protein 5.8 GM/DL 5.9 GM/DL (6.4-8.2) (6.4-8.2) Albumin 1.8 GM/DL 1.9 GM/DL (3.4-5.0) (3.4-5.0) Urine Color LIGHT-YELLOW (YELLW/STRAW) Urine Turbidity CLEAR (CLEAR) Urine pH 5.0 (5.0-8.5) Urine Specific [place] 1.009 (1.002-1.035) Urine Protein NEG mg/dL (NEG-TRACE) Urine Glucose (UA) NEG mg/dL (NEG) Urine Ketones NEG mg/dL (NEG) Urine Occult Blood NEG (NEG) Urine Nitrite NEG (NEG) Urine Bilirubin NEG (NEG) Urine Urobilinogen LESS THAN 2.0 MG/DL (LESS THAN 2.0) Urine Leukocyte Esterase NEG (NEG) Urine RBC 1 /hpf (0-3) Urine WBC 1 /hpf (0-5) Urine Hyaline Casts 5 /lpf (RARE) Urine Mucus FEW /lpf (OCC) Microscopic Urinalysis Comment CULT NOT INDICATED Prothrombin Time 11.5 SEC (9.8-11.6) Prothromb Time International 1.0 RATIO Ratio Activated Partial 23.2 SEC Thromboplast Time (24.3-30.1) Blood Type A POSITIVE Antibody Screen NEGATIVE Crossmatch Leukocyte-Reduced Red Blood Cells Blood Bank Comment Toxic Granulation 1+ (NORMAL) Ovalocytes 1+ (NORMAL) Test 10/13/16 10/13/16 10/14/16 10/14/16 14:46 19:00 01:32 04:24 Hemoglobin 8.3 GM/DL 8.7 GM/DL 8.7 GM/DL 8.6 GM/DL (11.6-15.3) (11.6-15.3) (11.6-15.3) (11.6-15.3) Hematocrit 27.6 % 29.5 % 27.8 % 27.8 % (35.0-46.0) (35.0-46.0) (35.0-46.0) (35.0-46.0) Troponin I LESS THAN 0.02 NG/ML (0.02-0.05) Test 10/14/16 10/14/16 10/15/16 14:51 20:43 05:15 Hemoglobin 8.0 GM/DL 8.0 GM/DL 9.1 GM/DL (11.6-15.3) (11.6-15.3) (11.6-15.3) Hematocrit 26.2 % 26.2 % 30.9 % (35.0-46.0) (35.0-46.0) (35.0-46.0) White Blood Count 8.6 TH/MM3 (4.0-11.0) Red Blood Count 3.94 MIL/MM3 (4.00-5.30) Mean Corpuscular Volume 78.4 FL (80.0-100.0) Mean Corpuscular Hemoglobin 23.1 PG (27.0-34.0) Mean Corpuscular Hemoglobin 29.5 % Concent (32.0-36.0) Red Cell Distribution Width 19.2 % (11.6-17.2) Platelet Count 285 TH/MM3 (150-450) Mean Platelet Volume 7.6 FL (7.0-11.0) Neutrophils (%) (Auto) 79.5 % (16.0-70.0) Lymphocytes (%) (Auto) 11.1 % (9.0-44.0) Monocytes (%) (Auto) 8.1 % (0.0-8.0) Eosinophils (%) (Auto) 1.0 % (0.0-4.0) Basophils (%) (Auto) 0.3 % (0.0-2.0) Neutrophils # (Auto) 6.8 TH/MM3 (1.8-7.7) Lymphocytes # (Auto) 1.0 TH/MM3 (1.0-4.8) Monocytes # (Auto) 0.7 TH/MM3 (0-0.9) Eosinophils # (Auto) 0.1 TH/MM3 (0-0.4) Basophils # (Auto) 0.0 TH/MM3 (0-0.2) CBC Comment AUTO DIFF Differential Comment AUTO DIFF CONFIRMED Sodium Level 138 MEQ/L (136-145) Potassium Level 4.5 MEQ/L (3.5-5.1) Chloride Level 106 MEQ/L (98-107) Carbon Dioxide Level 22.2 MEQ/L (21.0-32.0) Anion Gap 10 MEQ/L (5-15) Blood Urea Nitrogen 12 MG/DL (7-18) Creatinine 0.70 MG/DL (0.50-1.00) Estimat Glomerular Filtration 79 ML/MIN (>89) Rate Random Glucose 139 MG/DL (74-106) Calcium Level 8.3 MG/DL (8.5-10.1) Iron Level 31 MCG/DL (50-170) Total Iron Binding Capacity 270 MCG/DL (250-450) Percent Iron Saturation 11.5 % (20-50) Ferritin 46 NG/ML (8-252) Lipase 74 U/L (73-393) Thyroid Stimulating Hormone 8.540 uIU/ML 3rd Gen (0.358-3.740) Result Diagram: 10/15/16 0515 10/15/16 0515 Imaging Last Impressions Chest X-Ray 10/12/16 0000 Signed Impressions: Service Date/Time: Wednesday, October 12, 2016 16:54 - CONCLUSION: 1. Bibasilar patchy densities. 2. Borderline cardiomegaly. Dmitry Chen MD Patient/Family Conference Present at Family Conference: Lamin Meyer. Family Conference Time (mins): 32 Family Conference Location: Telephone Issues Discussed: * Palliative care role, purpose, approach * Additional medical, psychosocial, and spiritual history * Patients general health, functional status, and cognitive changes in the months leading up to the current hospitalization * Family's understanding of the current medical problems to include GI bleed and profound physical deconditioning. * Family's understanding of prognosis * Patients goals of care as best understood from advance directives and/or conversations and/or values * Current medical treatment options and benefits/burdens of those options * Likely scenarios comparing ongoing aggressive care with a transition to comfort measures only * Questions answered to the best of my ability * Palliative care contact information provided * Hospice philosophy and benefits . Assessment and Plan Disease Oriented Problem List: (1) GI bleed (2) COPD (chronic obstructive pulmonary disease) (3) Hypertension Symptom Scale: (1) Shortness of breath Comment: History of COPD. (2) Debility 0-10 Scale: Unable to quantify Comment: Multifactorial. Secondary to multiple comorbidities, GI bleed, age, and multiple recent prior hospitalizations. Pertinent Non-Medical Issues Psychosocial: . Has 3 living daughters. Residing with granddaughter prior to this hospitalization. Spiritual:Hoahaoism Legal: No living will has been completed. Ethical issues impacting care: No living will has been completed. . Important Contacts Daughter Veronica Pal [phone]. Granddaughter Rere Guy [phone]. . Prognosis Mrs. Feldman is an 86-year-old female with a medical history of multiple acute hospitalizations and ED visits within the last 24 months, CHF, COPD, A. fib, hypertension, diabetes mellitus type 2, CAD and chronic constipation. Patient presented to the ED on 10/12/16 endorsing flulike symptoms to include body weakness and nonproductive cough for the prior 2-3 days. Patient was discharge home from a previous hospitalization on 10/10/16 secondary to UTI/sepsis and constipation. She was noted that her hemoglobin dropped to 8.4 from 10.1 on last admission, as well as positive Hemoccult. Patient declining GI workup. Patient is a high risk for further decline, complications, and with a very poor prognosis given her age, multiple comorbidities, profound physical deconditioning, multiple recent acute hospitalizations and emergency room visits , an acute event such as GI bleed for which patient is declining workup. Patient electing to transition to comfort directed care with hospice services and to allow natural . This is appropriate given her poor prognosis and increased symptoms burden. . Code Status: No Code Plan * CODE STATUS: No code. DNR/DNI. Allow natural . * MEDICAL DECISION-MAKING: Patient making her healthcare decisions at this time. Palliative care assisted incompletion of designation are healthcare surrogate.Patient named her daughter Veronica Meyer as healthcare surrogate, alternate granddaughter Rere Guy. * GOALS OF CARE: No code, DNR/DNI, patient and family electing comfort directed care with hospice services with the goal of symptom management for an improved quality of life for whatever time she has left. Patient wishing no further workup or hospitalizations. Patient and family amenable to discharge to hospice care center for symptom management with the goal of discharge home with hospice once her symptoms are controlled. Patient and family aware of her limited life expectancy and poor prognosis given her age, multiple comorbidities , profound physical deconditioning, multiple recent hospitalizations and ED visits and acute events such as GI bleed for which she has declined invasive workup. * SYMPTOMS: == Debility, multifactorial. Progressive given her multiple comorbidities and multiple hospitalizations. Likely to continue to progress.== Nausea, Zofran available as needed. == Shortness of breath, history of COPD. Currently tolerating oxygen. Albuterol as needed. * Case has been discussed with Dr. Steve. * Palliative care contact information has been provided to patient and daughter. * Ongoing emotional support and active listening provided to patient and daughter. * Palliative care will continue to follow-up to assist symptom management and to further evaluate goals of care as the clinical course evolves. . Time Spent Total Floor Time (mins): 85 (Total time to include review and summarization of available medical records to include multiple prior hospitalizations and ED visits, physical exam, goals of care conversation with patient, telephone conversation with her daughter and case discussion with Dr. Steve.) >50% Counseling/Coord of Care: Yes Thank you for the opportunity to participate in the care of Ms. Feldman. Attestation To help prompt me to consider important information that might be impacting today's encounter and assessment, information from prior notes written by myself or my colleagues may have been "brought forward" into today's note. My signature on this note, however, is an attestation that I personally performed the exam, history, and/or decision-making noted today, and, unless otherwise indicated, the interactions with patient, family, and staff as well as the review of records all occurred today. I also attest that the listed assessment and stated plan reflect my best clinical judgment today based on the combination of historical information, prior notes, and today's exam/ interactions. When time spent is documented, it refers only to time spent today by the signer, or if indicated, combined time spent today by collaborating physician/nurse practitioner. Dianna Pickard Oct 15, 2016 15:17
[2016-10-15] MEDS: ATORVASTATIN 10 MG TAB PO SCH (22:31)
[2016-10-15] MEDS: PANTOPRAZOLE SODIUM 40 MG VIAL IV PUSH SCH (22:32)
[2016-10-16] VITALS: BP 117/68; PULSE 90; RESP 20; TEMP 95.9; O2SAT 99
[2016-10-16 04:00] VITALS: BP 133/61; PULSE 81; RESP 20; TEMP 95.6; O2SAT 98
[2016-10-16] MEDS: ACETAMINOPHEN 325 MG TAB PO PRN (05:43)
[2016-10-16] MEDS: INSULIN ASPART SUPPLEMENTAL SCALE SQ SCH ×3 (05:44→16:00)
[2016-10-16 08:00] VITALS: BP 121/57; PULSE 84; RESP 20; TEMP 95.8; O2SAT 99
[2016-10-16] MEDS: INSULIN HUMAN NPH/R 70/30 1,000 UNITS/10 ML VIAL SQ SCH ×2 (08:00→17:00)
[2016-10-16] MEDS ORDERED: FERROUS SULFATE 325 MG (65 MG ELEMENTAL IRON) TAB PO SCH (09:00)
[2016-10-16] MEDS: ALLOPURINOL 100 MG TAB PO SCH (09:00)
[2016-10-16] MEDS: METOPROLOL TARTRATE 100 MG TAB PO SCH (09:00)
[2016-10-16 09:17] VITALS: O2SAT 99
[2016-10-16] MEDS: DILTIAZEM-CD 180 MG CAP ER PO SCH (09:35)
[2016-10-16] MEDS: ISOSORBIDE MONONITRATE 30 MG TAB PO SCH (09:35)
[2016-10-16] MEDS: POLYETHYLENE GLYCOL 17 GM PKG PO SCH (09:35)
[2016-10-16] MEDS: guaiFENesin E.R. 600 MG TAB PO SCH (09:36)
[2016-10-16] MEDS: AMIODARONE 200 MG TAB PO SCH (09:36)
[2016-10-16] MEDS: FLUCONAZOLE 100 MG TAB PO SCH (09:36)
[2016-10-16] MEDS: PANTOPRAZOLE SODIUM 40 MG VIAL IV PUSH SCH (09:37)
[2016-10-16] MEDS: SODIUM CHLORIDE 0.9% FLUSH 5 ML FLUSH FLUSH SCH (09:38)
[2016-10-16 12:00] VITALS: BP 120/59; PULSE 98; RESP 20; TEMP 95.9; O2SAT 94
[2016-10-16] MEDS: ONDANSETRON HCL 4 MG/2 ML VIAL IVP PRN (12:02)
[2016-10-16] MEDS: MORPHINE SULFATE 4 MG/ML INJ IV PRN ×2 (12:02→17:07)
--- NOTE | 2016-10-16 13:01 | HHI.PR ---
Subjective Remarks No complaints, waiting for hospice. No pain. No nausea or vomiting. Objective Vitals Vital Signs Date Time Temp Pulse Resp B/P Pulse Ox O2 Delivery O2 Flow Rate FiO2 10/16/16 08:00 95.8 84 20 121/57 99 10/16/16 04:00 95.6 81 20 133/61 98 10/16/16 00:00 95.9 90 20 117/68 99 10/15/16 22:30 Nasal Cannula 3.00 10/15/16 20:00 88 10/15/16 20:00 96.2 89 20 135/80 97 10/15/16 18:14 93 Nasal Cannula 2.00 10/15/16 17:16 95.7 93 16 123/60 93 10/15/16 14:21 93 Nasal Cannula 2.00 I/O 10/15/16 10/15/16 10/15/16 10/16/16 10/16/16 10/16/16 07:00 15:00 23:00 07:00 15:00 23:00 Intake Total 363 ml 575 ml 720 ml 0 ml Output Total 1000 ml 600 ml 400 ml 400 ml Balance -637 ml -25 ml 320 ml -400 ml Intake Oral 240 ml 575 ml 720 ml 0 ml IV Total 123 ml 0 ml Output Urine Total 1000 ml 600 ml 400 ml 400 ml # Bowel Movements 0 1 Result Diagram: 10/15/1615 10/15/1615 Objective Remarks GENERAL: Well-developed well-nourished. In no acute distress. Not oriented to time. SKIN: Warm and dry. No lesions noted. HEENT: Normocephalic. Pupils equal and round. Mucous membranes pink and moist. CARDIOVASCULAR: Regular rate and rhythm. No murmur appreciated. RESPIRATORY: No accessory muscle use. Clear to auscultation. Breath sounds equal bilaterally. GASTROINTESTINAL: Abdomen soft, epigastric TTP, nondistended. Bowel sounds x4. MUSCULOSKELETAL: Right AKA. No clubbing or cyanosis. No edema. NEUROLOGICAL: Awake and alert. Not oriented to time. No focal neurological deficits. Moves upper and lower extremities spontaneously. Normal speech. Date of Insertion: Oct 08, 2016 A/P Problem List: (1) GI bleed ICD Code: K92.2 Status: Acute (2) Generalized weakness ICD Code: R53.1 Status: Acute (3) UTI (urinary tract infection) ICD Code: N39.0 Status: Acute (4) A-fib ICD Code: I48.91 Status: Acute (5) COPD (chronic obstructive pulmonary disease) ICD Code: J44.9 Status: Chronic (6) HTN (hypertension) ICD Code: I10 Status: Chronic (7) DM (diabetes mellitus) ICD Code: E11.9 Status: Chronic Assessment and Plan 86-year-old female with a PMH of HTN, A. fib on ASA, CHF (Echo 04/06/16 w/ EF 55- 60%), CAD, Depression, DM and COPD who presented to the ER w/ complaints of generalized weakness x3 days. Recent admit 10/06-10/10/16 for Sepsis, UTI and Constipation, s/p eval by GI and d/c'd on Fluconazole 100mg qd x14 days for Zee + Urine Cultures. States has been having weakness since discharge. GI Bleed: w/ Symptomatic Anemia and generalized weakness. Possible underlying ulcer. Hgb 8.4, previously 10.1 on 10/10/16, +Hemoccult. On ASA per review of home medications, will hold. Change Protonix gtt to IV Protonix twice daily. Consulted GI, Dr. Arguelles, patient declines any GI intervention. Hemoglobin has remained stable. Transfuse for Hgb < 8.0. Check lipase with epigastric pain. Generalized Weakness: Likely multifactorial-recent hospitalization, physical deconditioning, pneumonia, UTI, MR and now GI Bleed w/ symptomatic anemia. IVF for hydration, PT for eval/tx. Patient declines any aggressive intervention, although not completely oriented at this time, consult palliative care. Pneumonia: CXR shows bibasilar patchy densities. Pt with +cough, SOB, chest pains. Chest Pain, atypical: possibly related to PNA vs anemia vs mitral regurgitation seen on previous echocardiogram. Troponin negative 2. ASA on hold with GIB. Patient declines any batch attendant workup at this time. UTI: Recurrent. U/c 09/19/16 +Klebsiella s/p IV Abx. U/c 10/06/16 +Zee Albicans on Fluconazole 100mg qd for 14 days, continue Fluconazole. U/a negative at this time. A-fib: Chronic. Rate-controlled. Resume home Metoprolol and Diltiazem. Hold ASA in light of GI Bleed. COPD: Chronic Respiratory Failure on home O2. Stable. Reports non-productive cough. On Levaquin as above. DuoNeb prn. HTN: Controlled. BP 119/59, HR 88. Monitor closely in light of GI Bleed. Continue home meds w/ hold parameters. DM: Sliding scale w/ Accu-Cheks. Holding Metformin. DVT Prophylaxis: teds/SCDs. Pharmacologic contraindication secondary to GI Bleed. She has been refusing any further workup. Pt accepted by hospice, discharged to hospice today. Problem Qualifiers (1) GI bleed: Qualified Code: K92.2 - Gastrointestinal hemorrhage, unspecified gastrointestinal hemorrhage type Eron Guido MD Oct 16, 2016 13:01
--- NOTE | 2016-10-16 13:54 | HHI.DS ---
Discharge Summary Admission Date Oct 12, 2016 at 18:56 Discharge Date: Oct 16, 2016 Admitting Diagnosis gi bleed (1) GI bleed ICD Code: K92.2 Diagnosis: Principal (2) Generalized weakness ICD Code: R53.1 Diagnosis: Secondary (3) UTI (urinary tract infection) ICD Code: N39.0 Diagnosis: Secondary (4) A-fib ICD Code: I48.91 Diagnosis: Secondary (5) COPD (chronic obstructive pulmonary disease) ICD Code: J44.9 Diagnosis: Secondary (6) HTN (hypertension) ICD Code: I10 Diagnosis: Secondary (7) DM (diabetes mellitus) ICD Code: E11.9 Diagnosis: Secondary Procedures none Brief History - From Admission This is an 86-year-old female with a PMH of HTN, A. fib on ASA, CHF (Echo w/ EF 55-60%), CAD, Depression, DM and COPD who presented to the ER w/ complaints of generalized weakness x3 days. Recent admit 10/06-10/10/16 for Sepsis, UTI and Constipation, s/p eval by GI and d/c'd on Fluconazole 100mg qd x14 days for Zee + Urine Cultures. States has been having weakness since discharge. Reports associated non-productive cough, however no fever, chills, chest pain or SOB. On arrival, BP 129/71, HR 98, O2 sat 95% on 2L NC, Afebrile. WBC normal. Hgb 8.4, previously 10.1 on 10/10/16. +Hemoccult positive. Only on ASA per review of home medications. CXR w/ bibasilar patchy densities. S/p Protonix IV and started on Protonix gtt in ER. U/a negative. CBC/BMP: 10/15/16 0515 10/15/16 0515 Significant Findings Laboratory Tests Test 10/13/16 10/13/16 10/14/16 10/14/16 14:46 19:00 01:32 04:24 Hemoglobin 8.3 GM/DL 8.7 GM/DL 8.7 GM/DL 8.6 GM/DL (11.6-15.3) (11.6-15.3) (11.6-15.3) (11.6-15.3) Hematocrit 27.6 % 29.5 % 27.8 % 27.8 % (35.0-46.0) (35.0-46.0) (35.0-46.0) (35.0-46.0) Troponin I LESS THAN 0.02 NG/ML (0.02-0.05) Test 10/14/16 10/14/16 10/15/16 14:51 20:43 05:15 Hemoglobin 8.0 GM/DL 8.0 GM/DL 9.1 GM/DL (11.6-15.3) (11.6-15.3) (11.6-15.3) Hematocrit 26.2 % 26.2 % 30.9 % (35.0-46.0) (35.0-46.0) (35.0-46.0) Red Blood Count 3.94 MIL/MM3 (4.00-5.30) Mean Corpuscular Volume 78.4 FL (80.0-100.0) Mean Corpuscular Hemoglobin 23.1 PG (27.0-34.0) Mean Corpuscular Hemoglobin 29.5 % Concent (32.0-36.0) Red Cell Distribution Width 19.2 % (11.6-17.2) Neutrophils (%) (Auto) 79.5 % (16.0-70.0) Monocytes (%) (Auto) 8.1 % (0.0-8.0) Estimat Glomerular Filtration 79 ML/MIN (>89) Rate Random Glucose 139 MG/DL (74-106) Calcium Level 8.3 MG/DL (8.5-10.1) Iron Level 31 MCG/DL (50-170) Percent Iron Saturation 11.5 % (20-50) Thyroid Stimulating Hormone 8.540 uIU/ML 3rd Gen (0.358-3.740) PE at Discharge GENERAL: Well-developed well-nourished. In no acute distress. Not oriented to time. SKIN: Warm and dry. No lesions noted. HEENT: Normocephalic. Pupils equal and round. Mucous membranes pink and moist. CARDIOVASCULAR: Regular rate and rhythm. No murmur appreciated. RESPIRATORY: No accessory muscle use. Clear to auscultation. Breath sounds equal bilaterally. GASTROINTESTINAL: Abdomen soft, epigastric TTP, nondistended. Bowel sounds x4. MUSCULOSKELETAL: Right AKA. No clubbing or cyanosis. No edema. NEUROLOGICAL: Awake and alert. No focal neurological deficits. Moves upper and lower extremities spontaneously. Normal speech. PSYCHIATRIC: Slightly depressed mood and labile affect; insight and judgment fair. Hospital Course 86-year-old female with a PMH of HTN, A. fib on ASA, CHF (Echo 04/06/16 w/ EF 55- 60%), CAD, Depression, DM and COPD who presented to the ER w/ complaints of generalized weakness x3 days. Patient was found to have symptomatic anemia secondary to GI bleed probably secondary to ulcer. Hemoccult was positive. On ASA per review of home medications, this was thought. Patient was placed on Protonix and GI was consulted. Patient however refused any GI workup. Patient was also thought to have pneumonia and UTI. Patient was started on antibiotics. Cardiology was consulted but patient declines any aggressive intervention, she however has capacity. She does not want any further workup and palliative consult was done. She received treatment for UTI. She was continued on her medications. She then chose to be discharged to hospice. No further workup was done. Pt Condition on Discharge: Good Discharge Disposition: Hospice/Med Facility Discharge Time: > 30 minutes Discharge Instructions DIET: Follow Instructions for: As Tolerated, No Restrictions Activities you can perform: Regular-No Restrictions Eron Guido MD Oct 16, 2016 13:54 negative at this time. A-fib: Chronic. Rate-controlled. Resume home Metoprolol and Diltiazem. Hold ASA in light of GI Bleed. COPD: Chronic Respiratory Failure on home O2. Stable. Reports non-productive cough. On Levaquin as above. DuoNeb prn. HTN: Controlled. BP 119/59, HR 88. Monitor closely in light of GI Bleed. Continue home meds w/ hold parameters. DM: Sliding scale w/ Accu-Cheks. Holding Metformin. DVT Prophylaxis: teds/SCDs. Pharmacologic contraindication secondary to GI Bleed. She has been refusing any further workup. Pt accepted by hospice, discharged to hospice today. Pt Condition on Discharge: Good Discharge Disposition: Hospice/Med Facility Discharge Time: > 30 minutes Discharge Instructions DIET: Follow Instructions for: As Tolerated, No Restrictions Activities you can perform: Regular-No Restrictions Eron Guido MD Oct 16, 2016 13:54
--- NOTE | 2016-10-16 14:36 | HHI.HCPN ---
Reason for visit a. To assist with evaluation and management of symptoms including: Debility. b. To assist medical decision maker(s) with: better understanding of current medical conditions; weighing benefits/burdens of medical treatment options; making medical treatment decisions. . Subjective/Interval History F/u visit for goals of care. Patient seen in her room. Endorsing generalized discomfort, debility and shortness of breath. Denies nausea or abdominal pain. Reports that her appetite still very poor but is trying to eat. Afebrile, remains on O2 2L via NC. stable BP and HR. No new labs of imaging. Patient and family met earlier today with hospice, she confirmed wishing to transition to comfort-directed care with the goal of returning home with hospice services. Patient declining any additional invasive work-up or hospitalizations. Patient to be discharge today to hospice care center for symptom management. No family at bedside. Ongoing emotional support and active listening provided, patient appreciative of today's visit. . Family/friend interactions See interval note. . Advance Directives Living Will: Never completed Health Care Surrogate: Copy in medical record Durable Power of Weld Fitter: Never completed Advance Directive Specifics Date completed: 10/15/16. . Health Care Surrogate(s): Patient named her daughter Veronica Meyer as healthcare surrogate, alternate granddaughter Rere Guy. . Documented care wishes: No living will completed. . Significant change in goals: NO CODE. Comfort-directed care with hospice services. Pending discharge today to hospice care center. . Objective Vital Signs Date Time Temp Pulse Resp B/P Pulse Ox O2 Delivery O2 Flow Rate FiO2 10/16/16 12:00 95.9 98 20 120/59 94 10/16/16 09:17 99 Nasal Cannula 2.00 10/16/16 08:00 95.8 84 20 121/57 99 10/16/16 04:00 95.6 81 20 133/61 98 10/16/16 00:00 95.9 90 20 117/68 99 10/15/16 22:30 Nasal Cannula 3.00 10/15/16 20:00 88 10/15/16 20:00 96.2 89 20 135/80 97 10/15/16 18:14 93 Nasal Cannula 2.00 10/15/16 17:16 95.7 93 16 123/60 93 Physical Exam CONSTITUTIONAL/GENERAL: This is an elderly lady in no apparent distress. Alert and oriented 3 and able to communicate her needs. TUBES/LINES/DRAINS: PIV's, SCDs, so cannula. SKIN: No jaundice, rashes, or lesions. Ecchymoses on upper extremities. No wounds seen anteriorly. Skin temperature appropriate. Not diaphoretic. Stasis dermatitis to left lower extremity. Several toes on left with scabs, appears secondary to peripheral vascular disease. HEAD: Atraumatic. Normocephalic. EYES: Pupils equal and round and reactive. No scleral icterus. No injection or drainage. ENT: Hearing grossly normal. Nose without bleeding or purulent drainage. NECK: Trachea midline. Supple, nontender. CARDIOVASCULAR: Irregular rate and rhythm without murmurs, gallops, or rubs. No JVD. RESPIRATORY/CHEST: Symmetric, unlabored respirations. Clear to auscultation. Breath sounds equal bilaterally. No wheezes, rales, or rhonchi. GASTROINTESTINAL: Abdomen soft, round, large. Bowel sounds present. GENITOURINARY: Without palpable bladder distension. MUSCULOSKELETAL: Extremities without clubbing, cyanosis, or edema. Right below the knee amputation. NEUROLOGICAL: Awake and alert. Follows commands. Cognitively sharp. Moves all extremities. PSYCHIATRIC: No obvious anxiety/depression. Pleasant and cooperative. . Diagnostic Tests Laboratory Laboratory Tests Test 10/13/16 10/13/16 10/14/16 10/14/16 14:46 19:00 01:32 04:24 Hemoglobin 8.3 GM/DL 8.7 GM/DL 8.7 GM/DL 8.6 GM/DL (11.6-15.3) (11.6-15.3) (11.6-15.3) (11.6-15.3) Hematocrit 27.6 % 29.5 % 27.8 % 27.8 % (35.0-46.0) (35.0-46.0) (35.0-46.0) (35.0-46.0) Troponin I LESS THAN 0.02 NG/ML (0.02-0.05) Test 10/14/16 10/14/16 10/15/16 14:51 20:43 05:15 Hemoglobin 8.0 GM/DL 8.0 GM/DL 9.1 GM/DL (11.6-15.3) (11.6-15.3) (11.6-15.3) Hematocrit 26.2 % 26.2 % 30.9 % (35.0-46.0) (35.0-46.0) (35.0-46.0) White Blood Count 8.6 TH/MM3 (4.0-11.0) Red Blood Count 3.94 MIL/MM3 (4.00-5.30) Mean Corpuscular Volume 78.4 FL (80.0-100.0) Mean Corpuscular Hemoglobin 23.1 PG (27.0-34.0) Mean Corpuscular Hemoglobin 29.5 % Concent (32.0-36.0) Red Cell Distribution Width 19.2 % (11.6-17.2) Platelet Count 285 TH/MM3 (150-450) Mean Platelet Volume 7.6 FL (7.0-11.0) Neutrophils (%) (Auto) 79.5 % (16.0-70.0) Lymphocytes (%) (Auto) 11.1 % (9.0-44.0) Monocytes (%) (Auto) 8.1 % (0.0-8.0) Eosinophils (%) (Auto) 1.0 % (0.0-4.0) Basophils (%) (Auto) 0.3 % (0.0-2.0) Neutrophils # (Auto) 6.8 TH/MM3 (1.8-7.7) Lymphocytes # (Auto) 1.0 TH/MM3 (1.0-4.8) Monocytes # (Auto) 0.7 TH/MM3 (0-0.9) Eosinophils # (Auto) 0.1 TH/MM3 (0-0.4) Basophils # (Auto) 0.0 TH/MM3 (0-0.2) CBC Comment AUTO DIFF Differential Comment AUTO DIFF CONFIRMED Sodium Level 138 MEQ/L (136-145) Potassium Level 4.5 MEQ/L (3.5-5.1) Chloride Level 106 MEQ/L (98-107) Carbon Dioxide Level 22.2 MEQ/L (21.0-32.0) Anion Gap 10 MEQ/L (5-15) Blood Urea Nitrogen 12 MG/DL (7-18) Creatinine 0.70 MG/DL (0.50-1.00) Estimat Glomerular Filtration 79 ML/MIN (>89) Rate Random Glucose 139 MG/DL (74-106) Calcium Level 8.3 MG/DL (8.5-10.1) Iron Level 31 MCG/DL (50-170) Total Iron Binding Capacity 270 MCG/DL (250-450) Percent Iron Saturation 11.5 % (20-50) Ferritin 46 NG/ML (8-252) Lipase 74 U/L (73-393) Thyroid Stimulating Hormone 8.540 uIU/ML 3rd Gen (0.358-3.740) Result Diagram: 10/15/16 0515 10/15/16 0515 Imaging Last Impressions Chest X-Ray 10/12/16 0000 Signed Impressions: Service Date/Time: Friday, October 12, 2016 16:54 - CONCLUSION: 1. Bibasilar patchy densities. 2. Borderline cardiomegaly. Dmitry Chen MD Assessment and Plan Disease Oriented Problem List: (1) GI bleed (2) COPD (chronic obstructive pulmonary disease) (3) Hypertension Symptom Scale: (1) Shortness of breath 0-10 Scale: Unable to quantify Comment: History of COPD. (2) Debility 0-10 Scale: Unable to quantify Comment: Multifactorial. Secondary to multiple comorbidities, GI bleed, age, and multiple recent prior hospitalizations. Pertinent Non-Medical Issues Psychosocial: . Has 3 living daughters. Residing with granddaughter prior to this hospitalization. Spiritual:[employer] Legal: No living will has been completed. Ethical issues impacting care: No living will has been completed. . Important Contacts Daughter Veronica Pal [phone]. Granddaughter Rere Guy [phone]. . Prognosis Mrs. Feldman is an 86-year-old female with a medical history of multiple acute hospitalizations and ED visits within the last 24 months, CHF, COPD, A. fib, hypertension, diabetes mellitus type 2, CAD and chronic constipation. Patient presented to the ED on 10/12/16 endorsing flulike symptoms to include body weakness and nonproductive cough for the prior 2-3 days. Patient was discharge home from a previous hospitalization on 10/10/16 secondary to UTI/sepsis and constipation. She was noted that her hemoglobin dropped to 8.4 from 10.1 on last admission, as well as positive Hemoccult. Patient declining GI workup. Patient is a high risk for further decline, complications, and with a very poor prognosis given her age, multiple comorbidities, profound physical deconditioning, multiple recent acute hospitalizations and emergency room visits , an acute event such as GI bleed for which patient is declining workup. Patient electing to transition to comfort directed care with hospice services and to allow natural . This is appropriate given her poor prognosis and increased symptoms burden. . Code Status: No Code Plan * CODE STATUS: No code. DNR/DNI. Allow natural . * MEDICAL DECISION-MAKING: Patient making her healthcare decisions at this time. Palliative care assisted incompletion of designation are healthcare surrogate.Patient named her daughter Veronica Meyer as healthcare surrogate, alternate granddaughter Rere Guy. * GOALS OF CARE: No code, DNR/DNI, patient and family electing comfort-directed care with hospice services. Patient declining any additional work-up or hospitalizations. She is wishing for a natural . Pending discharge to hospice care center for symptom management. * SYMPTOMS: == Debility, multifactorial. Progressive given her multiple comorbidities and multiple hospitalizations. Likely to continue to progress.== Nausea, Zofran available as needed. == Shortness of breath, history of COPD. Currently tolerating oxygen. Albuterol as needed. * Palliative care contact information has been provided to patient and daughter. * Ongoing emotional support and active listening provided to patient and daughter. * Dispo: pending discharge this afternoon to hospice care center. . Time Spent Total Floor Time (mins): 33 (Total time to include review of medical records, physical exam, and case discussion with receiving barn custodian/admission. ) >50% Counseling/Coord of Care: Yes Attestation To help prompt me to consider important information that might be impacting today's encounter and assessment, information from prior notes written by myself or my colleagues may have been "brought forward" into today's note. My signature on this note, however, is an attestation that I personally performed the exam, history, and/or decision-making noted today, and, unless otherwise indicated, the interactions with patient, family, and staff as well as the review of records all occurred today. I also attest that the listed assessment and stated plan reflect my best clinical judgment today based on the combination of historical information, prior notes, and today's exam/ interactions. When time spent is documented, it refers only to time spent today by the signer, or if indicated, combined time spent today by collaborating physician/nurse practitioner. Dianna Pickard Oct 16, 2016 14:36
[2016-10-16] MEDS: LEVOFLOXACIN 750 MG PREMIX INJ 150 ML IV SCH (15:00)
[2016-10-16 16:00] VITALS: BP 105/33; PULSE 102; RESP 16; TEMP 95.6; O2SAT 100
== END 2016-10-16 17:53 | disposition hospice, inpatient (51) | DRG 377 ==
LOC: NEPC 16:16 → NEDA 18:56 → N07A 21:32 → N07B 10-14 09:00
PROVIDERS: ADMIT Hospitalist; ATTEND Hospitalist
DX: K92.2 Gastrointestinal hemorrhage, unspecified (principal); J18.9 Pneumonia, unspecified organism; J96.10 Chronic respiratory failure, unspecified whether with hypoxia or hypercapnia; I50.9 Heart failure, unspecified; N39.0 Urinary tract infection, site not specified; Z99.81 Dependence on supplemental oxygen; E11.9 Type 2 diabetes mellitus without complications; I10 Essential (primary) hypertension; D50.0 Iron deficiency anemia secondary to blood loss (chronic); J44.9 Chronic obstructive pulmonary disease, unspecified; Z79.84 Long term (current) use of oral hypoglycemic drugs; Z88.5 Allergy status to narcotic agent; Z88.8 Allergy status to other drugs, medicaments and biological substances; Z82.49 Family history of ischemic heart disease and other diseases of the circulatory system; I25.10 Atherosclerotic heart disease of native coronary artery without angina pectoris; Z95.5 Presence of coronary angioplasty implant and graft; K44.9 Diaphragmatic hernia without obstruction or gangrene; H91.91 Unspecified hearing loss, right ear; E78.00 Pure hypercholesterolemia, unspecified; J45.909 Unspecified asthma, uncomplicated; M19.90 Unspecified osteoarthritis, unspecified site; Z89.511 Acquired absence of right leg below knee; I48.2 Chronic atrial fibrillation; Z87.440 Personal history of urinary (tract) infections; K59.09 Other constipation; I25.2 Old myocardial infarction; Z51.5 Encounter for palliative care; I08.1 Rheumatic disorders of both mitral and tricuspid valves; Z66 Do not resuscitate; Z99.3 Dependence on wheelchair; F17.210 Nicotine dependence, cigarettes, uncomplicated
CPT/HCPCS: 71010; 76937; 80048; 80053; 81001; 82728; 82948; 83540; 83550; 83690; 83880; 84443; 84484; 85007; 85014; 85018; 85025; 85027; 85610; 85730; 86850; 86900; 86901; 86920; 86922; 93005; 94640; 94664; C9113; J1815; J1956; J2270; J2405; J7030; J7613